=== PATIENT | female | born 1980 | race Caucasian/White ===

== ENCOUNTER 2016-09-17 20:28 | Emergency (ER) | payer SELFPAY ==
[~2016-09-17] VITALS: Ht 154.9 cm; Wt 74.5 kg
[~2016-09-17 20:28] MED LIST: ALPR1TAB PO; ALPR1TAB2 PO; ALPR1TAB7 PO; AMIT25TA9 PO; ASCO500T20 PO; ASPI-892 PO; ATOR20TA66 PO; BUTA1TAB46 PO; CIPR500T4 PO; ESTR0.5T PO; ESTR2TAB PO; ESTR2TAB4 PO; FLUC150T PO; GUAI120L27 PO; HYDR-3816 PO; HYDR-690 PO; HYDR118S10 PO; HYDR1TAB PO; HYOS0.1283 SL; IBP200T PO; KETO10TA PO; LORA10CA PO; LORA10TA7 PO; METO5TAB2 PO; METR500T PO; MTR250T PO; MULT-974 PO; OMEP20CA12 PO; ONDA4TAB11 PO; ONDA4TAB8 SL; ONDA8TAB12 PO; ORPH100T PO; PANT40TA2 PO; PARO40TA2 PO; PHEN37.555 PO; PRAV40TA PO; PRD20T PO; PRED10TA PO; PRM25T PO; PROZAC; PRX20T PO; RANI300T6 PO; SUCR1TAB36 PO; TRAZ-144 PO; TRM50T PO; VARE1TAB22 PO; VENL150C PO; WRF5T PO; ZIPR60CA6 PO; ZIPR60CA7 PO; ZPR20C PO; ZPR80C PO
--- OUTSIDE RECORDS SUMMARY | 2016-09-17 20:34 | XMS REPORT ---
Author Author BOGDAN FINK Organization [employer] Address Unknown Phone Unavailable Care Team Providers Care Broadcast Meteorologist Name Role Phone BOGDAN FINK CP Unavailable Allergies No Known Allergies Problems Problem Type Condition Code Onset Dates Condition Status Problem Family history of diabetes mellitus Z83.3 Active Problem Obesity (BMI 35.0-39.9 without comorbidity) E66.01 Active Problem Allergic rhinitis J30.9 Active Problem Elevated liver enzymes R74.8 Active Problem Substance abuse, daily use F19.10 Active Problem Generalized anxiety disorder F41.1 Active Problem Nausea R11.0 Active Problem Bipolar II disorder F31.81 Active Problem Depression with anxiety F41.8 Active Problem Bipolar 2 disorder F31.81 Active Problem History of hiatal hernia Z87.19 Active Problem Routine health maintenance Z00.00 Active Medications Medication Code System Code Instructions Start Date End Date Status Dosage Vicoprofen [facility] [address]-09 7.5-200 MG Orally 4 times a day MUST LAST 4 WEEKS 1 tablet as needed Results No Known Results Summary Purpose [employer] Submission
[2016-09-17] MEDS ORDERED: NS IV 1000 ML 1,000 ML IV ONE (22:19)
[2016-09-17] MEDS ORDERED: ONDANSETRON 4 MG/2 ML (SDV) Z0FRAN IVP ONE (22:30)
[2016-09-17 22:31] LABS: BASOPHILS % (AUTO) 0 % (0-10); EOSINOPHILS # (AUTO) 0.1 10^3/uL (0.0-0.3); EOSINOPHILS % (AUTO) 1 % (0-10); LYMPHOCYTES # (AUTO) 3.6 X 10^3 (1.0-4.0); LYMPHOCYTES % (AUTO) 37 % (12-44); MEAN CORPUSCULAR HEMOGLOBIN 30 PG (25-34); MEAN CORPUSCULAR HGB CONC 35 G/DL (32-36); MEAN CORPUSCULAR VOLUME 85 FL (80-99); MEAN PLATELET VOLUME 10.7 FL (7.4-10.4); MONOCYTES # (AUTO) 0.5 X 10^3 (0.0-1.0); MONOCYTES % (AUTO) 5 % (0-12); NEUTROPHILS # (AUTO) 5.4 X 10^3 (1.8-7.8); NEUTROPHILS % (AUTO) 56 % (42-75); PLATELET COUNT 335 10^3/uL (130-400); RED BLOOD COUNT 4.53 10^6/uL (4.35-5.85); RED CELL DISTRIBUTION WIDTH 12.4 % (10.0-14.5); WHITE BLOOD COUNT 9.6 10^3/uL (4.3-11.0)
[2016-09-17 22:54] LABS: ALANINE AMINOTRANSFERASE 39 U/L (0-55); ALBUMIN 4.4 G/DL (3.2-4.5); ANION GAP 14 MMOL/L (5-14); ASPARTATE AMINO TRANSFERASE 22 U/L (5-34); BILIRUBIN,TOTAL 0.3 MG/DL (0.1-1.0); BLOOD UREA NITROGEN 6 MG/DL (7-18); BUN/CREATININE RATIO 7; CALCIUM 9.4 MG/DL (8.5-10.1); CARBON DIOXIDE 18 MMOL/L (21-32); CHLORIDE 108 MMOL/L (98-107); CREATININE SERUM 0.82 MG/DL (0.60-1.30); ERYTHROCYTE SEDIMENTATION RATE 22 MM/HR (0-20); GFR ESTIMATED > 60; GLUCOSE 118 MG/DL (70-105); POTASSIUM 3.5 MMOL/L (3.6-5.0); SODIUM 140 MMOL/L (135-145); TOTAL PROTEIN 6.8 G/DL (6.4-8.2)
[2016-09-17] MEDS ORDERED: diphenhydrAMINE 50 MG/ML INJ (BENADRYL) IV STA (22:55)
[2016-09-17] MEDS ORDERED: KETOROLAC 30 MG/ML VIAL IVP STA (22:55)
--- NOTE | 2016-09-17 23:01 | ED Headache ---
General Chief Complaint: Head/Cervical Problems Stated Complaint: N,V,D,FEVER Nursing Triage Note: patient reports migraine with n/v x 6 days, patient reports not being able to keep anything down. denies being evaluated by PCP Nursing Sepsis Screen: No Definite Risk History of Present Illness Time seen by provider: 22:40 Initial Comments evaluation for nausea 6 days. Patient repeatedly states that she "has not kept anything down for 6 days." he ate dinner tonight, then vomited approximately 30 minutes later. She also reports having a frontal headache. She has a history of cluster headaches. She has history of hypoglycemia, she states her blood sugars have been running 60-80. She has been drinking pop to offset the hypoglycemia Timing/Duration: 1 week Severity/Quality: moderate Location: frontal Prior Headaches/Recent Trauma: chronic headaches Modifying Factors: worse with exposure to light, improves with immobilization, worse with movement, improves with rest Associated Symptoms: No confusion, No fatigue, No facial pain, No fever/chills , No loss of consciousness, nausea/vomitingNo nasal congestion, No nasal drainage, No numbness in legs/feet, No seizures, No sinus infection, No stiff neck, No vision changes, No weakness Allergies and Home Medications Allergies Uncoded Allergies: SEAFOOD (Allergy, Mild, 10/23/09) Home Medications Alprazolam 1 Mg Tablet 1 MG PO QID PRN PRN ANXIETY (Reported) Ascorbic Acid 500 Mg Tablet 500 MG PO DAILY (Reported) Atorvastatin Calcium 20 Mg Tablet 20 MG PO DAILY (Reported) Estradiol 2 Mg Tablet 1 MG PO DAILY (Reported) TAKES 1/2 (2MG) TABLET Hydrocodone Bit/Acetaminophen 1 Tab Tablet 1 TAB PO QID PRN PRN PAIN (Reported) Ketorolac Tromethamine 10 Mg Tablet #15 10 MG PO Q6H Prescribed by: JCARLOS FORRESTER on 11/11/15 0244 Loratadine 10 Mg Tablet 10 MG PO DAILY (Reported) Metoclopramide HCl 5 Mg Tablet #15 5 MG PO QID PRN PRN NAUSEA/VOMITING Prescribed by: KEITH CORNEJO on 02/23/15 5855 Multivitamin 1 Each Tablet 1 TAB PO DAILY (Reported) Omeprazole 20 Mg Capsule. 20 MG PO BID (Reported) Ondansetron HCl 8 Mg Tablet 8 MG PO QID PRN PRN NAUSEA (Reported) Pantoprazole Sodium 40 Mg Tablet.dr #90 40 MG PO DAILY Prescribed by: CLARENCE LOPEZ on 03/09/15 1007 Ranitidine HCl 300 Mg Tablet 300 MG PO HS (Reported) Sucralfate 1 Gm Tablet #120 1 GM PO QID Prescribed by: CLARENCE LOPEZ on 03/09/15 1007 Venlafaxine HCl 150 Mg Cap.er.24h 150 MG PO DAILY (Reported) Ziprasidone 80 Mg Cap 80 MG PO (Reported) Constitutional: no symptoms reported see HPI Eyes: See HPI Photophobia Ears, Nose, Mouth, Throat: no symptoms reported see HPI Respiratory: no symptoms reported see HPI Cardiovascular: no symptoms reported see HPI Gastrointestinal: see HPI nausea vomiting Genitourinary: see HPI : No (complete hysterectomy) Musculoskeletal: no symptoms reported see HPI Skin: no symptoms reported see HPI Psychiatric/Neurological: See HPI Past Bwkerhc-Ulbavt-Vkikkm Hx Patient Social History Alcohol Use: Denies Use Recreational Drug Use: Yes Smoking Status: Current Everyday Smoker Type Used: Electronic/Vapor Former Smoker/When Quit: Recent Foreign Travel: No Contact w/Someone Who Travel: No Recent Infectious Disease Expo: No Recent Hopitalizations: Yes Immunizations Up To Date Date of Influenza Vaccine: Jun 07, 2013 Surgeries HX Surgeries: Yes (LAPROSCOPY X 8 FOR ENDOMETRIOSIS; HYST/BSO, WISDOM TEETH) Surgeries: Abdominal, Appendectomy, Gallbladder, Hysterectomy, Oophorectomy Respiratory Hx Respiratory Disorders: No Cardiovascular Hx Cardiac Disorders: Yes Cardiac Disorders: High Cholesterol Neurological Hx Neurological Disorders: Yes Neurological Disorders: Headaches /Migraines Reproductive System Hx Reproductive Disorders: Yes Female Reproductive Disorders: Endometriosis 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 Genitourinary Hx Genitourinary Disorders: No Gastrointestinal Hx Gastrointestinal Disorders: No Gastrointestinal Disorders: Hiatal Hernia Musculoskeletal Hx Musculoskeletal Disorders: No Endocrine Hx Endocrine Disorders: No HEENT HX ENT Disorders: No Cancer Hx Cancer: No Psychosocial Hx Psychiatric Problems: Yes ("SEVERE ANXIETY" PER PT) Behavioral Health Disorders: Anxiety, Suicide Attempts, Bipolar, Depression Integumentary HX Skin/Integumentary Disorder: No Blood Transfusions Hx Blood Disorders: No Reviewed Nursing Assessment Reviewed/Agree w Nursing PMH: Yes Family Medical History Significant Family History: Cancer, Diabetes Physical Exam Vital Signs Vital Sign - Last 12Hours 09/17/16 21:26 Temp 97.5 Pulse 81 Resp 18 B/P 138/83 Pulse Ox 98 Capillary Refill : Less Than 3 Seconds General Appearance: WD/WN no apparent distress HEENT: PERRL/EOMI normal ENT inspection TMs normal pharynx normal other (oral mucosa pink and moist.) Neck: non-tender full range of motion supple normal inspection Cardiovascular: normal peripheral pulses regular rate, rhythm no murmur Respiratory: chest non-tender lungs clear normal breath sounds Gastrointestinal: normal bowel sounds non tender soft no organomegaly no pulsatile massNo distended, No guarding, No rebound, No tenderness, No hernia, No mass, No hepatomegaly, No spleenomegaly Extremities: normal range of motion non-tender normal inspection no pedal edema no calf tenderness normal capillary refill Psychiatric: alert oriented x 3 Crainal Nerves: normal hearing normal speech PERRL Coordination/Gait: normal finger to nose normal gait Motor/Sensory: no motor deficit no sensory deficit Skin: normal color warm/dry Lymphatic: no adenopathy Progress/Results/Core Measures Results/Orders Lab Results Laboratory Tests Test 09/17/16 22:20 09/17/16 23:40 Range/Units Alanine Aminotransferase (ALT/SGPT) 39 0-55 U/L Albumin 4.4 3.2-4.5 G/DL Alkaline Phosphatase 136 40-136 U/L Anion Gap 14 5-14 MMOL/L Aspartate Amino Transf (AST/SGOT) 22 5-34 U/L BUN/Creatinine Ratio 7 Basophils # (Auto) 0.0 0.0-0.1 10^3/uL Basophils (%) (Auto) 0 0-10 % Blood Urea Nitrogen 6 L 7-18 MG/DL Calcium Level 9.4 8.5-10.1 MG/DL Carbon Dioxide Level 18 L 21-32 MMOL/L Chloride Level 108 H 98-107 MMOL/L Creatinine 0.82 0.60-1.30 MG/DL Eosinophils # (Auto) 0.1 0.0-0.3 10^3/uL Eosinophils (%) (Auto) 1 0-10 % Erythrocyte Sedimentation Rate 22 H 0-20 MM/HR Estimat Glomerular Filtration Rate > 60 Glucose Level 118 H 70-105 MG/DL Hematocrit 39 35-52 % Hemoglobin 13.4 11.5-16.0 G/DL Lymphocytes # (Auto) 3.6 1.0-4.0 X 10^3 Lymphocytes (%) (Auto) 37 12-44 % Mean Corpuscular Hemoglobin 30 25-34 PG Mean Corpuscular Hemoglobin Concent 35 32-36 G/DL Mean Corpuscular Volume 85 80-99 FL Mean Platelet Volume 10.7 H 7.4-10.4 FL Monocytes # (Auto) 0.5 0.0-1.0 X 10^3 Monocytes (%) (Auto) 5 0-12 % Neutrophils # (Auto) 5.4 1.8-7.8 X 10^3 Neutrophils (%) (Auto) 56 42-75 % Platelet Count 335 130-400 10^3/uL Potassium Level 3.5 L 3.6-5.0 MMOL/L Red Blood Count 4.53 4.35-5.85 10^6/uL Red Cell Distribution Width 12.4 10.0-14.5 % Sodium Level 140 135-145 MMOL/L Total Bilirubin 0.3 0.1-1.0 MG/DL Total Protein 6.8 6.4-8.2 G/DL White Blood Count 9.6 4.3-11.0 10^3/uL Urine Bacteria NONE /HPF Urine Bilirubin NEGATIVE NEGATIVE Urine Casts NONE /LPF Urine Clarity CLEAR Urine Color YELLOW Urine Crystals NONE /LPF Urine Culture Indicated NO Urine Glucose (UA) NEGATIVE NEGATIVE Urine Ketones NEGATIVE NEGATIVE Urine Leukocyte Esterase NEGATIVE NEGATIVE Urine Mucus NEGATIVE /LPF Urine Nitrite NEGATIVE NEGATIVE Urine Protein NEGATIVE NEGATIVE Urine RBC NONE /HPF Urine RBC (Auto) NEGATIVE NEGATIVE Urine Specific [place] 1.005 L 1.016-1.022 Urine Squamous Epithelial Cells 0-2 /HPF Urine Urobilinogen NORMAL NORMAL MG/DL Urine WBC NONE /HPF Urine pH 6.5 5-9 My Orders Orders-KADEN CONLEY Cbc With Automated Diff (09/17/16 22:19) Comprehensive Metabolic Panel (09/17/16 22:19) Erythrocyte Sedimentation Rate (09/17/16 22:19) Ua Culture If Indicated (09/17/16 22:19) Ondansetron Injection (Zofran Injectio (09/17/16 22:30) Saline Lock/Iv-Start (09/17/16 22:19) Saline Lock/Iv-Start (09/17/16 22:19) Ns Iv 1000 Ml (Sodium Chloride 0.9%) (09/17/16 22:19) Ketorolac Injection (Toradol Injection) (09/17/16 22:55) Diphenhydramine Injection (Benadryl Inje (09/17/16 22:55) Medications Given in ED Current Medications Medications Dose Ordered Sig/Clem Route Start Time Stop Time Status Last Admin Dose Admin Ondansetron HCl 4 mg 4 mg ONCE ONCE IVP 09/17/16 22:30 09/17/16 22:31 DC 09/17/16 22:28 4 MG Sodium Chloride 1,000 ml @ 0 mls/hr Q0M ONCE IV 09/17/16 22:19 09/17/16 22:24 DC 09/17/16 22:28 0 MLS/HR Vital Signs/I&O Vital Sign - Last 12Hours 09/17/16 21:26 Temp 97.5 Pulse 81 Resp 18 B/P 138/83 Pulse Ox 98 Intake and Output 09/18/16 00:00 Intake Total 1000 ml Balance 1000 ml Blood Pressure Mean: 101 Progress Note : Time: 22:40 Progress Note evaluation for nausea and vomiting with headache. Normal saline 1 L and Zofran 4 mg IV. 2314 patient reports the nausea is improved but she continues to have a headache will give Toradol 30 mg IV and Benadryl 50 mg IV. 2344 patient reports headache has improved significantly she continues to have no nausea or vomiting. She is taking ice chips by mouth. UA normal. Departure Impression Impression: Primary Impression: Nausea and vomiting Qualified Code: G43.A1 - Cyclical vomiting, intractable Additional Impression: Headache Qualified Code: G44.021 - Chronic cluster headache, intractable Disposition: 01 HOME, SELF-CARE Condition: Improved Departure-Patient Inst. Decision time for Depature: 23:40 Referrals: [facility] (PCP/Family) Primary Care Physician Patient Instructions: Cluster Headache (DC), Nausea and Vomiting, Adult (DC) Add. Discharge Instructions: All discharge instructions reviewed with patient and/or family. Voiced understanding. Clear liquid diet for 4 hours, then progress to bland. Return to Emergency Dept if symptoms return or worsen. KADEN CONLEY Sep 17, 2016 23:01
[2016-09-17 23:52] LABS: BILIRUBIN,URINE NEGATIVE (NEGATIVE); KETONES,URINE NEGATIVE (NEGATIVE); LEUKOCYTE ESTERASE ,URINE NEGATIVE (NEGATIVE); NITRITE,URINE NEGATIVE (NEGATIVE); PH,URINE 6.5 (5-9); PROTEIN,URINE NEGATIVE (NEGATIVE); UROBILINOGEN,URINE NORMAL (NORMAL)
[2016-09-18 00:02] LABS: SQUAMOUS EPITHELIAL CELL,UR 0-2 /HPF
[2016-09-18 00:12] VITALS: BP 126/68
== END 2016-09-18 00:12 | disposition home or self-care (01) ==
LOC: EDUNIT# 20:28 → ER 20:30
DX: R11.2 Nausea with vomiting, unspecified (principal); R51 Headache; F17.210 Nicotine dependence, cigarettes, uncomplicated; Z79.899 Other long term (current) drug therapy
CPT/HCPCS: 36415; 80053; 81000; 85025; 85652; 96361; 96374; 96375

== ENCOUNTER 2019-01-18 21:18 | Emergency (ER) | payer BC ==
[~2019-01-18] VITALS: Ht 154.9 cm; Wt 86.2 kg
--- NOTE | 2019-01-18 21:20 | NUR ---
Inability to obtain initiatl EKG @ this time d/t accessive artifact r/t pt restlessness and inability to remain still. Provider notified and advised to retry EKG after pain medicition adm.
--- OUTSIDE RECORDS SUMMARY | 2019-01-18 21:23 | XMS REPORT ---
Author Author WHITNEY CLEMENTE [facility] Address [address] [place] [address] Care Team Providers Care Director [employer] Name Role Phone WHITNEY CLEMENTE Unavailable PROBLEMS Type Condition ICD9-CM Code FZY15-UL Code Onset Dates Condition Status SNOMED Code Problem Chronic pain syndrome G89.4 Active 253840317 Problem Obesity (BMI 30.0-34.9) E66.9 Active 808462686078527 Problem Chronic cluster headache, not intractable G44.029 Active 804434029 Problem Obesity (BMI 35.0-39.9 without comorbidity) E66.01 Active 685990324 Problem Insomnia due to other mental disorder F51.05 Active 24340610 Problem GERD (gastroesophageal reflux disease) K21.9 Active 977549477 Problem Primary insomnia F51.01 Active 6894091 Problem Mental disorder, not otherwise specified F99 Active 40520845 Problem Seasonal allergic rhinitis due to pollen J30.1 Active 79712494 Problem Elevated liver enzymes R74.8 Active 523057480 Problem Substance abuse, daily use F19.10 Active 188173047 Problem Allergic rhinitis J30.9 Active 12201499 Problem Tobacco abuse Z72.0 Active 314762859 Problem Bipolar 2 disorder F31.81 Active 79896927 Problem Tobacco abuse counseling Z71.6 Active 803270258 Problem Depression with anxiety F41.8 Active 274911580 Problem Post menopausal syndrome N95.1 Active 510920885 ALLERGIES No Information ENCOUNTERS Encounter Location Date Diagnosis [facility] [address] [facility] [id number] [address] Jul, [facility] [id number] [address] Jun, [facility] [address] [facility] [id number] [address] May, [place] [id number] [place] [address] 05 May, 2018 Obesity (BMI 35.0-39.9 without comorbidity) E66.01 [facility] [id number] [place] [phone] 05 May, 2018 Bipolar 2 disorder F31.81 [place] [id number] [place] [address] May, Obesity (BMI 30.0-34.9) E66.9 and Obesity (BMI 35.0-39.9 without comorbidity) E66.01 [place] [id number] [place] [address] Apr, [place] [id number] [place] [address] Apr, Bipolar 2 disorder F31.81 [place] [id number] [place] [address] Apr, [place] [id number] [place] [address] Apr, Bipolar 2 disorder F31.81 [place] [id number] [place] [address] Mar, Bipolar 2 disorder F31.81 ; Insomnia due to other mental disorder F51.05 ; Mental disorder, not otherwise specified F99 and Post menopausal syndrome N95.1 [place] [id number] [place] [address] Feb, Bipolar 2 disorder F31.81 ; Tobacco abuse counseling Z71.6 and Seasonal allergic rhinitis due to pollen J30.1 [place] [address] [place] [address] Feb, Bipolar 2 disorder F31.81 ; Depression with anxiety F41.8 ; Chronic pain syndrome G89.4 ; long term (current) use of 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 Z79.891 ; Abnormal serum enzyme level, unspecified R74.9 ; Elevated liver enzymes R74.8 and Tobacco abuse Z72.[address] [address] Feb, Depression with anxiety F41.8 ; Chronic pain syndrome G89.4 and [facility] (current) use of 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 Z79.[address] [address] Oct, Bipolar 2 disorder F31.81 ; Depression with anxiety F41.8 ; Elevated liver enzymes R74.8 ; Tobacco abuse Z72.0 ; Chronic pain syndrome G89.4 ; GERD (gastroesophageal reflux disease) K21.9 ; Primary insomnia F51.01 ; Post menopausal syndrome N95.1 and Nausea R11.0 [facility] [address] [address] Aug, [facility] [address] [address] Jun, Chronic cluster headache, not intractable G44.[address] [address] Apr, Primary insomnia F51.01 and Violation of controlled substance agreement Z91.[address] [address] Mar, [address] [address] Feb, [address] [address] Feb, Depression with anxiety F41.8 ; Bipolar 2 disorder F31.81 ; Allergic rhinitis J30.9 ; Tobacco abuse Z72.0 ; Post menopausal syndrome N95.1 ; Chronic pain syndrome G89.4 ; Obesity (BMI 30.0-34.9) E66.9 ; GERD (gastroesophageal reflux disease) K21.9 ; Primary insomnia F51.01 ; Long-term use of high-risk medication Z79.899 and Controlled substance agreement signed Z79.899 [place] [address] [place] [address] Jan, [place] [address] [place] [id number] [place] [address] Jan, Chronic pain syndrome G89.4 and Depression with anxiety F41.8 [place] [id number] [place] [address] Dec, Chronic pain syndrome G89.4 and Depression with anxiety F41.8 [place] [address] [id number] [place] [address] November, Chronic pain syndrome G89.4 and Depression with anxiety F41.8 [place] [id number] [place] [address] November, Abnormal serum enzyme level, unspecified R74.9 [place] [id number] [place] [address] November, Family history of diabetes mellitus Z83.3 [place] [id number] [place] [address] November, Depression with anxiety F41.8 ; Bipolar 2 disorder F31.81 ; Allergic rhinitis J30.9 ; Nausea R11.0 ; Obesity (BMI 30.0-34.9) E66.9 ; Substance abuse, daily use F19.10 ; Elevated liver enzymes R74.8 ; History of hiatal hernia Z87.19 ; Post menopausal syndrome N95.1 ; Chronic pain syndrome G89.4 and Routine health maintenance Z00.00 [place] [address] [place] [address] Oct, Chronic pain syndrome G89.4 and Depression with anxiety F41.8 [place] [address] [id number] [place] [address] Oct, Family history of diabetes mellitus Z83.3 [place] [address] [id number] [place] [address] Sep, [place] [address] [place] [address] Sep, Chronic pain syndrome G89.4 and Depression with anxiety F41.8 [place] [address] [address] Sep, Depression with anxiety F41.8 [place] [address] [place] [id number] [place] [address] Aug, Chronic pain syndrome G89.4 [facility] [address] [id number] [place] [address] Aug, Chronic cluster headache, not intractable G44.029 [place] [address] [id number] [place] [address] Aug, Depression with anxiety F41.8 ; Bipolar 2 disorder F31.81 ; Obesity (BMI 35.0-39.9 without comorbidity) E66.01 ; Allergic rhinitis J30.9 ; Substance abuse, daily use F19.10 ; Nausea R11.0 ; Tobacco abuse Z72.0 ; Chronic pain syndrome G89.4 ; Hiatal hernia K44.9 and Post menopausal syndrome N95.1 [place] [address] [place] [address] Aug, [place] [address] [place] [address] Jul, Chronic pain syndrome G89.4 [place] [address] [place] [id number] [place] [address] Jul, [place] [address] [id number] [place] [address] Jun, Depression with anxiety F41.8 ; Bipolar 2 disorder F31.81 ; Obesity (BMI 35.0-39.9 without comorbidity) E66.01 ; Post menopausal syndrome N95.1 and Chronic pain syndrome G89.4 [facility] [id number] [place] [address] 17 Jun, 2016 Bronchitis J40 [facility] [id number] [place] [address] Jun, [facility] [id number] [place] [address] May, [facility] [address] [address] May, Depression with anxiety F41.8 ; Bipolar 2 disorder F31.81 ; Obesity (BMI 35.0-39.9 without comorbidity) E66.01 ; Tobacco abuse Z72.0 and Tobacco abuse counseling Z71.6 [place] [id number] [place] [address] May, [facility] [id number] [place] [address] Apr, [facility] [id number] [place] [address] Apr, Abrasion, right great toe, initial encounter S90.411A and Local infection of the skin and subcutaneous tissue, unspecified L08.9 [place] [address] [id number] [place] [address] Apr, [facility] [address] [place] [address] Mar, Depression with anxiety F41.8 ; Bipolar 2 disorder F31.81 ; Obesity (BMI 35.0-39.9 without comorbidity) E66.01 ; Substance abuse, daily use F19.10 ; Elevated liver enzymes R74.8 ; GERD (gastroesophageal reflux disease) K21.9 and Allergic rhinitis J30.9 [facility] [address] [place] [address] Mar, [facility] [id number] [place] [address] Mar, [facility] [id number] [place] [address] 05 Feb, 2016 Depression with anxiety F41.8 ; Bipolar 2 disorder F31.81 ; Obesity (BMI 35.0-39.9 without comorbidity) E66.01 ; Substance abuse, daily use F19.10 ; Nausea R11.0 and History of hiatal hernia Z87.19 [place] [id number] [place] [address] Feb, [place] [address] [id number] [place] [address] 02 Feb, 2016 Bipolar II disorder F31.81 and Generalized anxiety disorder F41.1 [place] [id number] [place] [address] Jan, [place] [address] [id number] [place] [address] Dec, [place] [id number] [place] [address] 02 Dec, 2015 Bipolar II disorder F31.81 ; Nausea R11.0 and History of hiatal hernia Z87.19 [place] [id number] [place] [address] 27 Nov, 2015 Bipolar II disorder F31.81 and Generalized anxiety disorder F41.1 [place] [id number] [place] [address] 19 Nov, 2015 Family history of diabetes mellitus Z83.3 [place] [address] [place] [id number] [place] [address] 13 Nov, 2015 [place] [id number] [place] [address] November, Abnormal serum enzyme level, unspecified R74.[address] [place] [address] 10 Nov, 2015 Routine health maintenance Z00.00 ; Depression with anxiety F41.8 ; Obesity (BMI 35.0-39.9 without comorbidity) E66.01 ; Family history of diabetes mellitus Z83.3 ; Bipolar 2 disorder F31.81 ; Allergic rhinitis J30.9 ; Substance abuse, daily use F19.10 ; GERD (gastroesophageal reflux disease) K21.9 ; History of cluster headache Z86.69 and History of hysterectomy Z90.710 [facility] [id number] [address] November, [facility] [address] [address] November, [facility] [id number] [address] Oct, Routine health maintenance Z00.00 ; Depression with anxiety F41.8 ; Bipolar 2 disorder F31.81 ; Obesity (BMI 35.0-39.9 without comorbidity) E66.01 ; Allergic rhinitis J30.9 ; Family history of diabetes mellitus Z83.3 ; Substance abuse, daily use F19.10 ; GERD (gastroesophageal reflux disease) K21.9 ; History of cluster headache Z86.69 and History of hysterectomy Z90.710 [facility] [address] [facility] [id number] [id number] Sep, Dental examination Z01.20 IMMUNIZATIONS No Known Immunizations SOCIAL HISTORY Never Assessed REASON FOR VISIT 1 mo DM ed f/u PLAN OF CARE VITAL SIGNS MEDICATIONS Unknown Medications RESULTS No Results PROCEDURES No Known procedures INSTRUCTIONS MEDICATIONS ADMINISTERED No Known Medications MEDICAL (GENERAL) HISTORY Type Description Date Medical History bronchitis Medical History blood thinners--used for cluster headaches Medical History cluster headaches Medical History bipolar disorder Medical History suicidal attempts x2--- OD on her Geodon Medical History History of hiatal hernia Medical History substance abuse Medical History insomnia Medical History chronic pain syndrome Medical History tobacco abuse Medical History allergic rhinitis Medical History elevated liver enzymes Surgical History endrometriosis surgerys x 8 Surgical History gallbladder Surgical History hysterectomy Surgical History left shoulder arthroscopy Surgical History wisdom tooth extractions Hospitalization History OD for suicide attempt was at then was sent to [facility] Hospitalization History C-diff Hospitalization History for bronchitis or pneumonia Hospitalization History for surgeries as well. Hospitalization History psych inpatient [facility] 2014
--- OUTSIDE RECORDS SUMMARY | 2019-01-18 21:24 | XMS REPORT ---
Author Author WILLIAM ALEXANDER [facility] Address [address] [place] [address] Care Team Providers Care Manager Competitive Intelligence Name Role Phone WILLIAM ALEXANDER Unavailable PROBLEMS Type Condition ICD9-CM Code QZU12-GT Code Onset Dates Condition Status SNOMED Code Problem Chronic pain syndrome G89.4 Active 844935009 Problem Obesity (BMI 30.0-34.9) E66.9 Active 605054771143350 Problem Chronic cluster headache, not intractable G44.029 Active 245606009 Problem Obesity (BMI 35.0-39.9 without comorbidity) E66.01 Active 707391594 Problem Insomnia due to other mental disorder F51.05 Active 26158654 Problem GERD (gastroesophageal reflux disease) K21.9 Active 346003057 Problem Primary insomnia F51.01 Active 8254265 Problem Mental disorder, not otherwise specified F99 Active 06680392 Problem Seasonal allergic rhinitis due to pollen J30.1 Active 44631472 Problem Elevated liver enzymes R74.8 Active 953863288 Problem Substance abuse, daily use F19.10 Active 032527149 Problem Allergic rhinitis J30.9 Active 38973560 Problem Tobacco abuse Z72.0 Active 071145383 Problem Bipolar 2 disorder F31.81 Active 48336105 Problem Tobacco abuse counseling Z71.6 Active 607357398 Problem Depression with anxiety F41.8 Active 074428222 Problem Post menopausal syndrome N95.1 Active 330085852 ALLERGIES No Information ENCOUNTERS Encounter Location Date Diagnosis [facility] [id number] [address] May, [facility] [id number] [address] May, Obesity (BMI 30.0-34.9) E66.9 and Obesity (BMI 35.0-39.9 without comorbidity) E66.01 [address] [address] Apr, [id number] [place] [address] Apr, Bipolar 2 disorder F31.81 [id number] [place] [address] Apr, [address] [id number] [place] [address] Apr, Bipolar 2 disorder F31.81 [address] [place] [place] [address] Mar, Bipolar 2 disorder F31.81 ; Insomnia due to other mental disorder F51.05 ; Mental disorder, not otherwise specified F99 and Post menopausal syndrome N95.1 [address] [id number] [place] [address] Feb, Bipolar 2 disorder F31.81 ; Tobacco abuse counseling Z71.6 and Seasonal allergic rhinitis due to pollen J30.1 [address] [place] [address] [place] [address] Feb, Bipolar 2 disorder F31.81 ; Depression with anxiety F41.8 ; Chronic pain syndrome G89.4 ; 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 ; Abnormal serum enzyme level, unspecified R74.9 ; Elevated liver enzymes R74.8 and Tobacco abuse Z72.0 [address] [place] [place] [address] Feb, Depression with anxiety F41.8 ; Chronic pain syndrome G89.4 and retirement (current) use of 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 Z79.891 [address] [place] [place] [address] Oct, Bipolar 2 disorder F31.81 ; Depression with anxiety F41.8 ; Elevated liver enzymes R74.8 ; Tobacco abuse Z72.0 ; Chronic pain syndrome G89.4 ; GERD (gastroesophageal reflux disease) K21.9 ; Primary insomnia F51.01 ; Post menopausal syndrome N95.1 and Nausea R11.0 [facility] [id number] [place] [address] Aug, [facility] [id number] [place] [address] Jun, Chronic cluster headache, not intractable G44.029 [address] [address] Apr, Primary insomnia F51.01 and Violation of controlled substance agreement Z91.[address] [address] Mar, [address] [address] Feb, [address] [address] Feb, Depression with anxiety F41.8 ; Bipolar 2 disorder F31.81 ; Allergic rhinitis J30.9 ; Tobacco abuse Z72.0 ; Post menopausal syndrome N95.1 ; Chronic pain syndrome G89.4 ; Obesity (BMI 30.0-34.9) E66.9 ; GERD (gastroesophageal reflux disease) K21.9 ; Primary insomnia F51.01 ; Long-term use of high-risk medication Z79.899 and Controlled substance agreement signed Z79.899 [address] [id number] [place] [address] Jan, [address] [id number] [place] [address] Jan, Chronic pain syndrome G89.4 and Depression with anxiety F41.8 [address] [id number] [place] [address] Dec, Chronic pain syndrome G89.4 and Depression with anxiety F41.8 [address] [id number] [place] [address] November, Chronic pain syndrome G89.4 and Depression with anxiety F41.8 [id number] [place] [address] November, Abnormal serum enzyme level, unspecified R74.9 [address] [id number] [place] [address] November, Family history of diabetes mellitus Z83.3 [address] [id number] [place] [address] November, Depression with anxiety F41.8 ; Bipolar 2 disorder F31.81 ; Allergic rhinitis J30.9 ; Nausea R11.0 ; Obesity (BMI 30.0-34.9) E66.9 ; Substance abuse, daily use F19.10 ; Elevated liver enzymes R74.8 ; History of hiatal hernia Z87.19 ; Post menopausal syndrome N95.1 ; Chronic pain syndrome G89.4 and Routine health maintenance Z00.00 [address] [id number] [place] [address] Oct, Chronic pain syndrome G89.4 and Depression with anxiety F41.8 [address] [id number] [place] [address] Oct, Family history of diabetes mellitus Z83.3 [address] [id number] [place] [address] Sep, [address] [id number] [place] [address] Sep, Chronic pain syndrome G89.4 and Depression with anxiety F41.8 [address] [id number] [place] [address] Sep, Depression with anxiety F41.8 [address] [id number] [place] [address] Aug, Chronic pain syndrome G89.4 [facility] [id number] [place] [address] 09 Aug, 2016 Chronic cluster headache, not intractable G44.029 [address] [place] [address] Aug, Depression with anxiety F41.8 ; Bipolar 2 disorder F31.81 ; Obesity (BMI 35.0-39.9 without comorbidity) E66.01 ; Allergic rhinitis J30.9 ; Substance abuse, daily use F19.10 ; Nausea R11.0 ; Tobacco abuse Z72.0 ; Chronic pain syndrome G89.4 ; Hiatal hernia K44.9 and Post menopausal syndrome N95.1 [address] [id number] [place] [address] Aug, [address] [place] [id number] [place] [address] Jul, Chronic pain syndrome G89.4 [address] [id number] [place] [address] Jul, [address] [id number] [place] [address] Jun, Depression with anxiety F41.8 ; Bipolar 2 disorder F31.81 ; Obesity (BMI 35.0-39.9 without comorbidity) E66.01 ; Post menopausal syndrome N95.1 and Chronic pain syndrome G89.4 [facility] [id number] [place] [address] Jun, Bronchitis J40 [facility] [id number] [place] [address] Jun, [address] [id number] [place] [address] May, [address] [id number] [place] [address] May, Depression with anxiety F41.8 ; Bipolar 2 disorder F31.81 ; Obesity (BMI 35.0-39.9 without comorbidity) E66.01 ; Tobacco abuse Z72.0 and Tobacco abuse counseling Z71.6 [facility] [id number] [place] [address] May, [facility] [id number] [place] [address] Apr, [facility] [id number] [place] [address] Apr, Abrasion, right great toe, initial encounter S90.411A and Local infection of the skin and subcutaneous tissue, unspecified L08.9 [facility] [id number] [place] [address] Apr, [address] [id number] [place] [address] Mar, Depression with anxiety F41.8 ; Bipolar 2 disorder F31.81 ; Obesity (BMI 35.0-39.9 without comorbidity) E66.01 ; Substance abuse, daily use F19.10 ; Elevated liver enzymes R74.8 ; GERD (gastroesophageal reflux disease) K21.9 and Allergic rhinitis J30.9 [address] [id number] [place] [address] Mar, [id number] [place] [address] Mar, [address] [id number] [place] [address] Feb, Depression with anxiety F41.8 ; Bipolar 2 disorder F31.81 ; Obesity (BMI 35.0-39.9 without comorbidity) E66.01 ; Substance abuse, daily use F19.10 ; Nausea R11.0 and History of hiatal hernia Z87.19 [address] [id number] [place] [address] Feb, [address] [id number] [place] [address] Feb, Bipolar II disorder F31.81 and Generalized anxiety disorder F41.1 [id number] [place] [address] Jan, [address] [id number] [place] [address] Dec, [address] [id number] [place] [address] Dec, Bipolar II disorder F31.81 ; Nausea R11.0 and History of hiatal hernia Z87.19 [address] [id number] [place] [address] November, Bipolar II disorder F31.81 and Generalized anxiety disorder F41.1 [address] [id number] [place] [address] November, Family history of diabetes mellitus Z83.[address] [address] November, [address] [id number] [place] [address] November, Abnormal serum enzyme level, unspecified R74.9 [id number] [place] [address] November, Routine health maintenance Z00.00 ; Depression with anxiety F41.8 ; Obesity (BMI 35.0-39.9 without comorbidity) E66.01 ; Family history of diabetes mellitus Z83.3 ; Bipolar 2 disorder F31.81 ; Allergic rhinitis J30.9 ; Substance abuse, daily use F19.10 ; GERD (gastroesophageal reflux disease) K21.9 ; History of cluster headache Z86.69 and History of hysterectomy Z90.710 [address] [id number] [place] [address] November, [address] [id number] [place] [address] November, [address] [address] Oct, Routine health maintenance Z00.00 ; Depression with anxiety F41.8 ; Bipolar 2 disorder F31.81 ; Obesity (BMI 35.0-39.9 without comorbidity) E66.01 ; Allergic rhinitis J30.9 ; Family history of diabetes mellitus Z83.3 ; Substance abuse, daily use F19.10 ; GERD (gastroesophageal reflux disease) K21.9 ; History of cluster headache Z86.69 and History of hysterectomy Z90.710 [facility] [address] [facility] [id number] [place] [id number] Sep, Dental examination Z01.20 IMMUNIZATIONS No Known Immunizations SOCIAL HISTORY Never Assessed REASON FOR VISIT DM ed PLAN OF CARE VITAL SIGNS MEDICATIONS Unknown [...] attempt was at then was sent to [facility] Hospitalization History C-diff Hospitalization History for bronchitis or pneumonia Hospitalization History for surgeries as well. Hospitalization History psych inpatient [facility] 2014
--- OUTSIDE RECORDS SUMMARY | 2019-01-18 21:24 | XMS REPORT ---
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 Name Role Phone WHITNEY CLEMENTE Unavailable PROBLEMS Type Condition ICD9-CM Code LSM37-KV Code Onset Dates Condition Status SNOMED Code Problem Chronic pain syndrome G89.4 Active 783369900 Problem Obesity (BMI 30.0-34.9) E66.9 Active 355228354212314 Problem Chronic cluster headache, not intractable G44.029 Active 478250958 Problem Obesity (BMI 35.0-39.9 without comorbidity) E66.01 Active 626844494 Problem Insomnia due to other mental disorder F51.05 Active 67288045 Problem GERD (gastroesophageal reflux disease) K21.9 Active 978087283 Problem Primary insomnia F51.01 Active 4422104 Problem Mental disorder, not otherwise specified F99 Active 66886347 Problem Seasonal allergic rhinitis due to pollen J30.1 Active 59542546 Problem Elevated liver enzymes R74.8 Active 811160452 Problem Substance abuse, daily use F19.10 Active 476073340 Problem Allergic rhinitis J30.9 Active 69356536 Problem Tobacco abuse Z72.0 Active 512479466 Problem Bipolar 2 disorder F31.81 Active 02746107 Problem Tobacco abuse counseling Z71.6 Active 586722628 Problem Depression with anxiety F41.8 Active 312751684 Problem Post menopausal syndrome N95.1 Active [id number] ALLERGIES No Information ENCOUNTERS Encounter Location Date Diagnosis [facility] [address] [facility] [id number] [address] Jul, [facility] [id number] [address] May, [facility] [address] [facility] [id number], [place] [address] May, Obesity (BMI 35.0-39.9 without comorbidity) E66.01 [place] [address] [place] [address] 05 May, 2018 Bipolar 2 disorder F31.81 [place] [id number] [place] [address] May, Obesity (BMI 30.0-34.9) E66.9 and Obesity (BMI 35.0-39.9 without comorbidity) E66.01 [place] [address] [id number] [place] [address] Apr, [place] [address] [id number] [place] [address] Apr, Bipolar 2 disorder F31.81 [place] [address] [id number] [place] [address] Apr, [place] [address] [place] [id number] [place] [address] Apr, Bipolar 2 disorder F31.81 [place] [address] [place] [id number] [place] [address] Mar, Bipolar 2 disorder F31.81 ; Insomnia due to other mental disorder F51.05 ; Mental disorder, not otherwise specified F99 and Post menopausal syndrome N95.1 [place] [address] [place] [id number] [place] [address] Feb, Bipolar 2 disorder F31.81 ; Tobacco abuse counseling Z71.6 and Seasonal allergic rhinitis due to pollen J30.1 [place] [address] [place] [address] Feb, Bipolar 2 disorder F31.81 ; Depression with anxiety F41.8 ; Chronic pain syndrome G89.4 ; 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 ; Abnormal serum enzyme level, unspecified R74.9 ; Elevated liver enzymes R74.8 and Tobacco abuse Z72.0 [place] [address] [address] Feb, Depression with anxiety F41.8 ; Chronic pain syndrome G89.4 and penitentiary (current) use of 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 Z79.[address] [address] Oct, Bipolar 2 disorder F31.81 ; Depression with anxiety F41.8 ; Elevated liver enzymes R74.8 ; Tobacco abuse Z72.0 ; Chronic pain syndrome G89.4 ; GERD (gastroesophageal reflux disease) K21.9 ; Primary insomnia F51.01 ; Post menopausal syndrome N95.1 and Nausea R11.0 [facility] [address] [address] Aug, [facility] [address] [address] Jun, Chronic cluster headache, not intractable G44.[address] [address] Apr, Primary insomnia F51.01 and Violation of controlled substance agreement Z91.[address] [address] Mar, [address] [address] Feb, [address] [address] Feb, Depression with anxiety F41.8 ; Bipolar 2 disorder F31.81 ; Allergic rhinitis J30.9 ; Tobacco abuse Z72.0 ; Post menopausal syndrome N95.1 ; Chronic pain syndrome G89.4 ; Obesity (BMI 30.0-34.9) E66.9 ; GERD (gastroesophageal reflux disease) K21.9 ; Primary insomnia F51.01 ; Long-term use of high-risk medication Z79.899 and Controlled substance agreement signed Z79.[address] [address] Jan, [place] [address] [place] [address] Jan, Chronic pain syndrome G89.4 and Depression with anxiety F41.8 [place] [address] [id number] [place] [address] Dec, Chronic pain syndrome G89.4 and Depression with anxiety F41.8 [place] [address] [place] [id number] [place] [address] November, Chronic pain syndrome G89.4 and Depression with anxiety F41.8 [place] [id number] [place] [address] November, Abnormal serum enzyme level, unspecified R74.9 [place] [address] [place] [id number] [place] [address] November, Family history of diabetes mellitus Z83.3 [place] [address] [id number] [place] [address] November, Depression with anxiety F41.8 ; Bipolar 2 disorder F31.81 ; Allergic rhinitis J30.9 ; Nausea R11.0 ; Obesity (BMI 30.0-34.9) E66.9 ; Substance abuse, daily use F19.10 ; Elevated liver enzymes R74.8 ; History of hiatal hernia Z87.19 ; Post menopausal syndrome N95.1 ; Chronic pain syndrome G89.4 and Routine health maintenance Z00.00 [place] [address] [place] [address] Oct, Chronic pain syndrome G89.4 and Depression with anxiety F41.8 [place] [address] [place] [id number] [place] [address] Oct, Family history of diabetes mellitus Z83.3 [place] [address] [place] [id number] [place] [address] Sep, [place] [address] [place] [id number] [place] [address] Sep, Chronic pain syndrome G89.4 and Depression with anxiety F41.8 [place] [address] [place] [id number] [place] [address] Sep, Depression with anxiety F41.8 [place] [address] [id number] [place] [address] Aug, Chronic pain syndrome G89.4 [facility] [id number] [place] [address] Aug, Chronic cluster headache, not intractable G44.029 [place] [address] [address] Aug, Depression with anxiety F41.8 ; Bipolar 2 disorder F31.81 ; Obesity (BMI 35.0-39.9 without comorbidity) E66.01 ; Allergic rhinitis J30.9 ; Substance abuse, daily use F19.10 ; Nausea R11.0 ; Tobacco abuse Z72.0 ; Chronic pain syndrome G89.4 ; Hiatal hernia K44.9 and Post menopausal syndrome N95.1 [place] [address] [place] [id number] [place] [address] Aug, [place] [address] [place] [id number] [place] [address] Jul, Chronic pain syndrome G89.4 [place] [address] [place] [id number] [place] [address] Jul, [place] [address] [place] [id number] [place] [address] Jun, Depression with anxiety F41.8 ; Bipolar 2 disorder F31.81 ; Obesity (BMI 35.0-39.9 without comorbidity) E66.01 ; Post menopausal syndrome N95.1 and Chronic pain syndrome G89.4 [facility] [address] [place] [address] Jun, Bronchitis J40 [place] [id number] [address] Jun, [facility] [address] [place] [address] May, [facility] [address] [place] [id number] [place] [address] May, Depression with anxiety F41.8 ; Bipolar 2 disorder F31.81 ; Obesity (BMI 35.0-39.9 without comorbidity) E66.01 ; Tobacco abuse Z72.0 and Tobacco abuse counseling Z71.6 [place] [address] [place] [id number] [place] [address] May, [place] [address] [place] [id number] [place] [address] Apr, [facility] [id number] [place] [address] Apr, Abrasion, right great toe, initial encounter S90.411A and Local infection of the skin and subcutaneous tissue, unspecified L08.9 [place] [address], [place] [address] Apr, [place] [address] [place] [id number] [place] [address] Mar, Depression with anxiety F41.8 ; Bipolar 2 disorder F31.81 ; Obesity (BMI 35.0-39.9 without comorbidity) E66.01 ; Substance abuse, daily use F19.10 ; Elevated liver enzymes R74.8 ; GERD (gastroesophageal reflux disease) K21.9 and Allergic rhinitis J30.9 [place] [address], [place] [address] Mar, [place] [address] [place] [id number] [place] [address] Mar, [facility] [address], [place] [address] Feb, Depression with anxiety F41.8 ; Bipolar 2 disorder F31.81 ; Obesity (BMI 35.0-39.9 without comorbidity) E66.01 ; Substance abuse, daily use F19.10 ; Nausea R11.0 and History of hiatal hernia Z87.19 [place] [address] [place] [address] Feb, [place] [address] [place] [id number] [place] [address] Feb, Bipolar II disorder F31.81 and Generalized anxiety disorder F41.1 [place] [address] [place] [id number] [place] [address] Jan, [place] [address] [place] [id number] [place] [address] Dec, [place] [address] [place] [id number] [place] [address] Dec, Bipolar II disorder F31.81 ; Nausea R11.0 and History of hiatal hernia Z87.19 [place] [address] [place] [id number] [place] [address] 27 Nov, 2015 Bipolar II disorder F31.81 and Generalized anxiety disorder F41.1 [place] [address] [place] [id number] [place] [address] November, Family history of diabetes mellitus Z83.3 [place] [address] [place] [id number] [place] [address] November, [place] [address] [place] [id number] [place] [address] November, Abnormal serum enzyme level, unspecified R74.9 [place] [address] [place] [id number] [place] [address] 10 Nov, 2015 Routine health maintenance Z00.00 ; Depression with anxiety F41.8 ; Obesity (BMI 35.0-39.9 without comorbidity) E66.01 ; Family history of diabetes mellitus Z83.3 ; Bipolar 2 disorder F31.81 ; Allergic rhinitis J30.9 ; Substance abuse, daily use F19.10 ; GERD (gastroesophageal reflux disease) K21.9 ; History of cluster headache Z86.69 and History of hysterectomy Z90.710 [facility] [id number], [place] [address] November, [facility] [id number] [address] November, [facility] [id number] [address] Oct, Routine health maintenance Z00.00 ; Depression with anxiety F41.8 ; Bipolar 2 disorder F31.81 ; Obesity (BMI 35.0-39.9 without comorbidity) E66.01 ; Allergic rhinitis J30.9 ; Family history of diabetes mellitus Z83.3 ; Substance abuse, daily use F19.10 ; GERD (gastroesophageal reflux disease) K21.9 ; History of cluster headache Z86.69 and History of hysterectomy Z90.710 [facility] [address] [facility] [id number] [id number] Sep, Dental examination Z01.20 IMMUNIZATIONS No Known Immunizations SOCIAL HISTORY Never Assessed REASON FOR VISIT 1 wk f/u DM Ed attempt PLAN OF CARE VITAL SIGNS MEDICATIONS Unknown [...] attempt was at then was sent to [place] Hospitalization History C-diff Hospitalization History for bronchitis or pneumonia Hospitalization History for surgeries as well. Hospitalization History psych inpatient [place] 2014
--- OUTSIDE RECORDS SUMMARY | 2019-01-18 21:24 | XMS REPORT ---
Author Author JOSÉ MIGUEL MAYER [facility] Address [address] [place] [address] Care Team Providers Care State Archivist Name Role Phone LEYLAJOSÉ MIGUEL Unavailable PROBLEMS Type Condition ICD9-CM Code EDJ32-UN Code Onset Dates Condition Status SNOMED Code Problem Chronic pain syndrome G89.4 Active 848309569 Problem Obesity (BMI 30.0-34.9) E66.9 Active 565042907332076 Problem Chronic cluster headache, not intractable G44.029 Active 351599349 Problem Obesity (BMI 35.0-39.9 without comorbidity) E66.01 Active 007100936 Problem Insomnia due to other mental disorder F51.05 Active 22003659 Problem GERD (gastroesophageal reflux disease) K21.9 Active 163073399 Problem Primary insomnia F51.01 Active 9148702 Problem Mental disorder, not otherwise specified F99 Active 46923357 Problem Seasonal allergic rhinitis due to pollen J30.1 Active 17573909 Problem Elevated liver enzymes R74.8 Active 846049858 Problem Substance abuse, daily use F19.10 Active 142205204 Problem Allergic rhinitis J30.9 Active 24373515 Problem Tobacco abuse Z72.0 Active 703000920 Problem Bipolar 2 disorder F31.81 Active 44540348 Problem Tobacco abuse counseling Z71.6 Active 166706544 Problem Depression with anxiety F41.8 Active 064125075 Problem Post menopausal syndrome N95.1 Active 458358634 ALLERGIES Substance Reaction Event Type Date Status iodine/seafood rash, throat swelling Non Drug Allergy May, Active ENCOUNTERS Encounter Location Date Diagnosis [facility] [place] [address] [facility] [id number] [address] Jul, [facility] [place] [address] [facility] [id number] [address] May, [facility] [place] [id number] [place] [address] 05 May, 2018 Obesity (BMI 35.0-39.9 without comorbidity) E66.01 [place] [id number] [place] [address] 05 May, 2018 Bipolar 2 disorder F31.81 [place] [id number] [place] [address] May, Obesity (BMI 30.0-34.9) E66.9 and Obesity (BMI 35.0-39.9 without comorbidity) E66.01 [place] [id number] [place] [address] Apr, [place] [id number] [place] [address] Apr, Bipolar 2 disorder F31.81 [place] [id number] [place] [address] Apr, [place] [id number] [place] [address] Apr, Bipolar 2 disorder F31.81 [place] [id number] [place] [address] Mar, Bipolar 2 disorder F31.81 ; Insomnia due to other mental disorder F51.05 ; Mental disorder, not otherwise specified F99 and Post menopausal syndrome N95.1 [place] [id number] [place] [address] Feb, Bipolar 2 disorder F31.81 ; Tobacco abuse counseling Z71.6 and Seasonal allergic rhinitis due to pollen J30.1 [place] [id number] [place] [address] Feb, Bipolar 2 disorder F31.81 ; Depression with anxiety F41.8 ; Chronic pain syndrome G89.4 ; 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 [address] [address] Aug, [facility] [address] [address] Jun, Chronic cluster headache, not intractable G44.[address] [address] Apr, Primary insomnia F51.01 and Violation of controlled substance agreement Z91.[address] [address] Mar, [address] [address] Feb, [address] [address] Feb, Depression with anxiety F41.8 ; Bipolar 2 disorder F31.81 ; Allergic rhinitis J30.9 ; Tobacco abuse Z72.0 ; Post menopausal syndrome N95.1 ; Chronic pain syndrome G89.4 ; Obesity (BMI 30.0-34.9) E66.9 ; GERD (gastroesophageal reflux disease) K21.9 ; Primary insomnia F51.01 ; Long-term use of high-risk medication Z79.899 and Controlled substance agreement signed Z79.899 [id number] [address] Jan, [place] [id number] [place] [address] Jan, Chronic pain syndrome G89.4 and Depression with anxiety F41.8 [place] [id number] [place] [address] Dec, Chronic pain syndrome G89.4 and Depression with anxiety F41.8 [place] [id number] [place] [address] November, Chronic pain syndrome G89.4 and Depression with anxiety F41.8 [place] [id number] [place] [address] November, Abnormal serum enzyme level, unspecified R74.9 [place] [id number] [place] [address] November, Family history of diabetes mellitus Z83.3 [place] [id number] [place] [address] November, Depression with anxiety F41.8 ; Bipolar 2 disorder F31.81 ; Allergic rhinitis J30.9 ; Nausea R11.0 ; Obesity (BMI 30.0-34.9) E66.9 ; Substance abuse, daily use F19.10 ; Elevated liver enzymes R74.8 ; History of hiatal hernia Z87.19 ; Post menopausal syndrome N95.1 ; Chronic pain syndrome G89.4 and Routine health maintenance Z00.00 [place] [address] [place] [address] Oct, Chronic pain syndrome G89.4 and Depression with anxiety F41.8 [place] [id number] [place] [address] Oct, Family history of diabetes mellitus Z83.3 [place] [address] [place] [address] Sep, [place] [address] [place] [address] Sep, Chronic pain syndrome G89.4 and Depression with anxiety F41.8 [place] [id number] [place] [address] Sep, Depression with anxiety F41.8 [place] [id number] [place] [address] Aug, Chronic pain syndrome G89.4 [facility] [id number] [place] [address] Aug, Chronic cluster headache, not intractable G44.029 [place] [id number] [place] [address] Aug, Depression with anxiety F41.8 ; Bipolar 2 disorder F31.81 ; Obesity (BMI 35.0-39.9 without comorbidity) E66.01 ; Allergic rhinitis J30.9 ; Substance abuse, daily use F19.10 ; Nausea R11.0 ; Tobacco abuse Z72.0 ; Chronic pain syndrome G89.4 ; Hiatal hernia K44.9 and Post menopausal syndrome N95.1 [place] [id number] [place] [address] Aug, [place] [address] [id number] [place] [address] Jul, Chronic pain syndrome G89.4 [place] [id number] [place] [address] Jul, [place] [id number] [place] [address] Jun, Depression with anxiety F41.8 ; Bipolar 2 disorder F31.81 ; Obesity (BMI 35.0-39.9 without comorbidity) E66.01 ; Post menopausal syndrome N95.1 and Chronic pain syndrome G89.4 [facility] [id number] [place] [address] Jun, Bronchitis J40 [facility] [place] [id number] [place] [address] Jun, [facility] [place] [id number] [place] [address] May, [facility] [place] [address] [address] May, Depression with anxiety F41.8 ; Bipolar 2 disorder F31.81 ; Obesity (BMI 35.0-39.9 without comorbidity) E66.01 ; Tobacco abuse Z72.0 and Tobacco abuse counseling Z71.6 [place] [address] [address] May, [facility] [place] [address] [address] Apr, [facility] [address] [address] Apr, Abrasion, right great toe, initial encounter S90.411A and Local infection of the skin and subcutaneous tissue, unspecified L08.9 [place] [address] [address] Apr, [facility] [place] [id number] [place] [address] Mar, Depression with anxiety F41.8 ; Bipolar 2 disorder F31.81 ; Obesity (BMI 35.0-39.9 without comorbidity) E66.01 ; Substance abuse, daily use F19.10 ; Elevated liver enzymes R74.8 ; GERD (gastroesophageal reflux disease) K21.9 and Allergic rhinitis J30.9 [facility] [place] [id number] [place] [address] Mar, [facility] [place] [id number] [place] [address] 06 Mar, 2016 [facility] [place] [address] [address] 05 Feb, 2016 Depression with anxiety F41.8 ; Bipolar 2 disorder F31.81 ; Obesity (BMI 35.0-39.9 without comorbidity) E66.01 ; Substance abuse, daily use F19.10 ; Nausea R11.0 and History of hiatal hernia Z87.19 [place] [id number] [place] [address] Feb, [place] [id number] [place] [address] Feb, Bipolar II disorder F31.81 and Generalized anxiety disorder F41.1 [place] [id number] [place] [address] Jan, [place] [id number] [place] [address] Dec, [place] [id number] [place] [address] Dec, Bipolar II disorder F31.81 ; Nausea R11.0 and History of hiatal hernia Z87.19 [place] [id number] [place] [address] 27 Nov, 2015 Bipolar II disorder F31.81 and Generalized anxiety disorder F41.1 [place] [id number] [place] [address] November, Family history of diabetes mellitus Z83.3 [place] [id number] [place] [address] November, [place] [id number] [place] [address] November, Abnormal serum enzyme level, unspecified R74.9 [place] [address] [place] [address] November, Routine health maintenance Z00.00 ; Depression with anxiety F41.8 ; Obesity (BMI 35.0-39.9 without comorbidity) E66.01 ; Family history of diabetes mellitus Z83.3 ; Bipolar 2 disorder F31.81 ; Allergic rhinitis J30.9 ; Substance abuse, daily use F19.10 ; GERD (gastroesophageal reflux disease) K21.9 ; History of cluster headache Z86.69 and History of hysterectomy Z90.710 [facility] [place] [address] [facility] [id number] [place] [address] November, [facility] [place] [address] [place] [address] [id number] [address] November, [facility] [place] [address] [facility] [id number] [address] Oct, Routine health maintenance Z00.00 ; Depression with anxiety F41.8 ; Bipolar 2 disorder F31.81 ; Obesity (BMI 35.0-39.9 without comorbidity) E66.01 ; Allergic rhinitis J30.9 ; Family history of diabetes mellitus Z83.3 ; Substance abuse, daily use F19.10 ; GERD (gastroesophageal reflux disease) K21.9 ; History of cluster headache Z86.69 and History of hysterectomy Z90.710 [facility] [address] [facility] [id number] [id number] Sep, Dental examination Z01.20 IMMUNIZATIONS No Known Immunizations SOCIAL HISTORY Never Assessed REASON FOR VISIT f/u Yasmine PLAN OF CARE Activity Details Follow Up 2 Months Reason: f/u VITAL SIGNS Height 61 in 2018-05-12 Weight 197.8 lbs 2018-05-12 Heart Rate 84 bpm 2018-05-12 Respiratory Rate 20 2018-05-12 BMI 37.37 kg/m2 2018-05-12 Blood pressure systolic 134 mmHg 2018-05-12 Blood pressure diastolic 76 mmHg 2018-05-12 MEDICATIONS Medication Instructions Dosage Frequency Start Date End Date Duration Status Calcium + D Active Aspir-Low 81 MG Orally Once a day 1 tablet 24h Active Vitamin E 400 UNIT Orally Once a day 1 capsule 24h 30 day(s) Active Fish Oil 1000 MG Orally 2 times a day 1 capsule 12h November, 30 day(s) Active Magnesium 250 MG Orally Once a day 1 tablet with a meal 24h Active Vitamin B Complex - Active Blood Glucose Test Strip one touch ultra mini test blood sugar 12h November, 25 days Active Melatonin 10 MG Orally Once a day 1 tablet at bedtime as needed with food 24h Active Protonix 40 mg Orally Once a day 1 tablet 24h November, Active Estradiol 0.5 MG Orally Once a day 1 tablet every other day 24h Jun, 30 days Active Latuda 40 mg Orally daily 1 tablet every dinner time for one week then take 40mg every dinner time 24h Apr, Active Folic Acid 1 MG Orally Once a day 1 tablet 24h Active Zinc 10 MG as directed Active RESULTS No Results PROCEDURES No Known procedures [...] attempt was at then was sent to [facility] Hospitalization History C-diff Hospitalization History for bronchitis or pneumonia Hospitalization History for surgeries as well. Hospitalization History psych inpatient [facility] 2014
--- NOTE | 2019-01-18 21:25 | ED Chest Pain ---
General Stated Complaint: CHEST PAIN Source: patient Exam Limitations: no limitations (RUT PINEDA APRN) History of Present Illness Date Seen by Provider: Jan 18, 2019 Time Seen by Provider: 21:21 Initial Comments To ER by private vehicle from work. She complains of sudden onset sharp left chest pain that radiates up into the left side of her neck and down the left arm. She is slightly short of breath, taking a deep breath worsens the pain, any abduction of the arm at the shoulder significantly worsens the pain and she describes it as excruciating. 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 She does ashley occasionally. She recently quit taking estrogen. She has also recently been to the chiropractor to have the left shoulder "worked on" Timing/Duration: changing over time Severity/Quality: sharp Radiation: no radiation Activities at Onset: none Prior CP/Workup: no prior chest pain ASA po MUSIC PUBLISHER: No NTG SL MUSIC PUBLISHER: No Associated Symptoms: denies symptoms (RUT PINEDA APRN) Allergies and Home Medications Allergies Uncoded Allergies: SEAFOOD (Allergy, Mild, 10/23/09) Home Medications Alprazolam 1 Mg Tablet, 1 MG PO QID PRN for ANXIETY, (Reported) Ascorbic Acid 500 Mg Tablet, 500 MG PO DAILY, (Reported) Atorvastatin Calcium 20 Mg Tablet, 20 MG PO DAILY, (Reported) Cyclobenzaprine HCl 10 Mg Tablet, 10 MG PO Q8H PRN for SPASMS Prescribed by: YOLANDA COELHO on 01/18/19 232 Estradiol 2 Mg Tablet, 1 MG PO DAILY, (Reported) TAKES 1/2 (2MG) TABLET Hydrocodone Bit/Acetaminophen 1 Tab Tablet, 1 TAB PO QID PRN for PAIN, (Reported) Hydrocodone Bit/Acetaminophen 1 Ea Tablet, 1 EACH PO Q6H Prescribed by: YOLANDA COELHO on 01/18/19 232 Ketorolac Tromethamine 10 Mg Tablet, 10 MG PO Q6H Prescribed by: JCARLOS FORRESTER on 11/11/15 0244 Loratadine 10 Mg Tablet, 10 MG PO DAILY, (Reported) Metoclopramide HCl 5 Mg Tablet, 5 MG PO QID PRN for NAUSEA/VOMITING Prescribed by: KEITH CORNEJO on 02/23/15 1455 Multivitamin 1 Each Tablet, 1 TAB PO DAILY, (Reported) Omeprazole 20 Mg Capsule.dr, 20 MG PO BID, (Reported) Ondansetron HCl 8 Mg Tablet, 8 MG PO QID PRN for NAUSEA, (Reported) Pantoprazole Sodium 40 Mg Tablet.dr, 40 MG PO DAILY Prescribed by: CLARENCE LOPEZ on 03/09/151006 Ranitidine HCl 300 Mg Tablet, 300 MG PO HS, (Reported) Sucralfate 1 Gm Tablet, 1 GM PO QID Prescribed by: CLARENCE LOPEZ on 03/09/151006 Venlafaxine HCl 150 Mg Cap.er.24h, 150 MG PO DAILY, (Reported) Patient Home Medication List Home Medication List Reviewed: Yes (YOLANDA COELHO MD) Review of Systems Review of Systems Constitutional: No chills, No fever Respiratory: See HPI; Denies Cough, Denies Shortness of Air Cardiovascular: Chest Pain; Denies Irregular Heart Rate Gastrointestinal: Denies Abdominal Pain, Denies Nausea, Denies Vomiting Musculoskeletal: see HPI, back pain, joint pain, muscle pain; No neck pain Skin: no symptoms reported Psychiatric/Neurological: Anxiety; Denies Weakness (YOLANDA COELHO MD) Past Irdvkoj-Ywundu-Fqpytf Hx Past Med/Social Hx: Reviewed Nursing Past Med/Soc Hx (YOLANDA COELHO MD) Patient Social History Type Used: Electronic/Vapor Recent Foreign Travel: No Contact w/Someone Who Travel: No Recent Hopitalizations: Yes (RUT PINEDA APRN) Immunizations Up To Date Date of Influenza Vaccine: Jun 07, 2013 (RUT PINEDA APRN) Past Medical History Abdominal, Appendectomy, Gallbladder, Hysterectomy, Oophorectomy High Cholesterol Headaches /Migraines Reproductive Disorders: Yes Female 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 3.0oz. 74.171183yu; 33.06 BMI Method:Stated (PINEDA,PETER J ROR ENGINEER) General Appearance: WD/WN, Moderate Distress Neck: Non Tender, Supple Respiratory: Lungs Clear, Normal Breath Sounds, Other (tender to the area of back just medial to the scapula towards the distal end.) Cardiovascular: Regular Rate, Rhythm, No Murmur Gastrointestinal: Non Tender, Soft Extremity: Normal Range of Motion, Other (pain with moving the left arm to the area of the chest and back.) Neurologic/Psychiatric: Alert, Oriented x3 Skin: Normal Color, Warm/Dry (YOLANDA COELHO MD) Progress/Results/Core Measures Results/Orders Lab Results Laboratory Tests Test 01/18/19 21:15 Range/Units White Blood Count 9.8 4.3-11.0 10^3/uL Red Blood Count 4.80 4.35-5.85 10^6/uL Hemoglobin 13.9 11.5-16.0 G/DL Hematocrit 41 35-52 % Mean Corpuscular Volume 85 80-99 FL Mean Corpuscular Hemoglobin 29 25-34 PG Mean Corpuscular Hemoglobin Concent 34 32-36 G/DL Red Cell Distribution Width 12.7 10.0-14.5 % Platelet Count 324 130-400 10^3/uL Mean Platelet Volume 10.3 7.4-10.4 FL Neutrophils (%) (Auto) 49 42-75 % Lymphocytes (%) (Auto) 42 12-44 % Monocytes (%) (Auto) 6 0-12 % Eosinophils (%) (Auto) 3 0-10 % Basophils (%) (Auto) 0 0-10 % Neutrophils # (Auto) 4.8 1.8-7.8 X 10^3 Lymphocytes # (Auto) 4.1 H 1.0-4.0 X 10^3 Monocytes # (Auto) 0.6 0.0-1.0 X 10^3 Eosinophils # (Auto) 0.3 0.0-0.3 10^3/uL Basophils # (Auto) 0.0 0.0-0.1 10^3/uL D-Dimer 0.55 H 0.00-0.49 UG/ML Sodium Level 140 135-145 MMOL/L Potassium Level 3.8 3.6-5.0 MMOL/L Chloride Level 105 98-107 MMOL/L Carbon Dioxide Level 21 21-32 MMOL/L Anion Gap 14 5-14 MMOL/L Blood Urea Nitrogen 12 7-18 MG/DL Creatinine 0.86 0.60-1.30 MG/DL Estimat Glomerular Filtration Rate > 60 BUN/Creatinine Ratio 14 Glucose Level 85 70-105 MG/DL Calcium Level 10.7 H 8.5-10.1 MG/DL Corrected Calcium 8.5-10.1 MG/DL Total Bilirubin 0.3 0.1-1.0 MG/DL Aspartate Amino Transf (AST/SGOT) 31 5-34 U/L Alanine Aminotransferase (ALT/SGPT) 46 0-55 U/L Alkaline Phosphatase 153 H 40-136 U/L Troponin I < 0.028 <0.028 NG/ML Total Protein 8.3 H 6.4-8.2 GM/DL Albumin 5.0 H 3.2-4.5 GM/DL (YOLANDA COELHO MD) My Orders Orders - YOLANDA COELHO MD Ketorolac Injection (Toradol Injection) (01/18/19 22:50) Rx-Hydrocodone/Apap 5-325 Mg (Rx-Vicodin (01/18/19 23:30) Cyclobenzaprine Tablet (Flexeril Tablet) (01/18/19 23:18) (YOLANDA COELHO MD) Medications Given in ED Current Medications Medications Dose Ordered Sig/Clem Route Start Time Stop Time Status Last Admin Dose Admin Acetaminophen/ Hydrocodone Bitart 1 ea Q4H PRN PO 01/18/19 23:30 01/18/19 23:29 1 EA Fentanyl Citrate 50 mcg ONCE ONCE IVP 01/18/19 21:30 01/18/19 21:31 DC 01/18/19 21:34 50 MCG Fentanyl Citrate 50 mcg ONCE ONCE IVP 01/18/19 22:00 01/18/19 22:01 DC 01/18/19 22:33 50 MCG Ketorolac Tromethamine 15 mg ONCE ONCE IVP 01/18/19 21:30 01/18/19 21:31 DC 01/18/19 21:34 15 MG Lorazepam 0.5 mg ONCE PRN IVP 01/18/19 21:45 01/18/19 21:50 0.5 MG (YOLANDA COELHO MD) Vital Signs/I&O 01/18/19 01/18/19 21:18 21:18 Temp 97.3 Pulse 89 Resp 20 B/P (MAP) 116/90 (99) Pulse Ox 95 O2 Delivery Room Air Room Air (YOLANDA COELHO MD) Progress Progress Note : Progress Note Assumed care from., ROR ENGINEER pending CT scan. CT does show left fifth rib fracture and I do believe this is the cause of her pain. She did receive second dose of Toradol 15 mg a the. We will give her a go pack of hydrocodone as well as I'll give her a Flexeril now. Discharged home with return precautions. Patient verbalize understanding instructions and agreement with plan. RT teaching for incentive spirometry done. (YOLANDA COELHO MD) Diagnostic Imaging Diagonstic Imaging: CT Plain Films/CT/US/NM/MRI: chest Comments There is a fracture of the left posterior lateral fifth rib. Mild pleural thickening is noted adjacent to the fracture site. There is no pneumothorax or hemothorax. Hazy interstitial infiltrates bilaterally. No pulmonary emboli. Diagonstic Imaging: Xray Plain Films/CT/US/NM/MRI: other (left shoulder) Comments No acute findings Reviewed: Reviewed by Me (YOLANDA COELHO MD) Departure Impression Primary Impression: Left rib fracture Qualified Codes: S22.32XA - Fracture of one rib, left side, initial encounter for closed fracture Disposition: HOME, SELF-CARE Condition: Stable Departure-Patient Inst. Decision time for Depature: 23:23 (YOLANDA COELHO MD) Referrals: [facility] (PCP/Family) Primary Care Physician Patient Instructions: Rib Fracture (DC) Add. Discharge Instructions: Take medications as directed.You may take ibuprofen 800 mg every 8 hours as needed for pain. You may also take Tylenol/acetaminophen 1000 mg every 8 hours as needed for pain. Space take Tylenol/acetaminophen if you're taking the prescribed pain medicine as they both have acetaminophen in them.You may use [id number] Icy Hot with lidocaine patches, Aspercreme with lidocaine patches, Salonpas with lidocaine patches or similar items such as roll-on cream to area of concern per package directions. It is very important that he follow up with your in a few days for recheck and for further evaluation. Return for worse pain, fever, breathing problems, weakness or other concerns as needed. You may not take muscle relaxers or narcotic pain medicine while working, driving or doing anything else that requires full alertness. Scripts Hydrocodone Bit/Acetaminophen (LORTAB 7.5 MG TABLET) 1 Ea Tablet 1 EACH PO Q6H, #10 TAB 0 Refills Prov: YOLANDA COELHO MD 01/18/19 Cyclobenzaprine HCl (Cyclobenzaprine HCl) 10 Mg Tablet 10 MG PO Q8H PRN for SPASMS, #12 TAB 0 Refills Prov: YOLANDA COELHO MD 01/18/19 Work/School Note: Work Release Form Date Seen in the Emergency Department: Jan 18, 2019 Return to Work: Jan 20, 2019 Restrictions: No Restrictions RUT PINEDA APRN Jan 18, 2019 21:25 YOLANDA COELHO MD Jan 18, 2019 23:26
--- OUTSIDE RECORDS SUMMARY | 2019-01-18 21:25 | XMS REPORT ---
Author Author WHITNEY CLEMENTE [facility] Address [address] [place] [address] Care Team Providers Care Academic Affairs Director Name Role Phone BRYNWHITNEY Unavailable PROBLEMS Type Condition ICD9-CM Code EKE96-LH Code Onset Dates Condition Status SNOMED Code Problem Post menopausal syndrome N95.1 Active 236261633 Problem Chronic cluster headache, not intractable G44.029 Active 018130605 Problem Chronic pain syndrome G89.4 Active 671196813 Problem Insomnia due to other mental disorder F51.05 Active 62098891 Problem Mental disorder, not otherwise specified F99 Active 77871895 Problem Primary insomnia F51.01 Active 8378816 Problem Obesity (BMI 30.0-34.9) E66.9 Active [id number] Problem Seasonal allergic rhinitis due to pollen J30.1 Active 31303038 Problem GERD (gastroesophageal reflux disease) K21.9 Active 542718730 Problem Elevated liver enzymes R74.8 Active 057555712 Problem Bipolar 2 disorder F31.81 Active 01573046 Problem Depression with anxiety F41.8 Active 014935103 Problem Allergic rhinitis J30.9 Active 42521210 Problem Tobacco abuse Z72.0 Active 242928954 Problem Substance abuse, daily use F19.10 Active 692977117 Problem Tobacco abuse counseling Z71.6 Active 439735848 ALLERGIES Substance Reaction Event Type Date Status iodine/seafood Unknown Non Drug Allergy Mar, Active ENCOUNTERS Encounter Location Date Diagnosis [facility] [address] [facility] [id number] [address] Apr, [facility] [address] [id number] [address] Mar, Bipolar 2 disorder F31.81 ; Insomnia due to other mental disorder F51.05 ; Mental disorder, not otherwise specified F99 and Post menopausal syndrome N95.1 [place] [id number] [place] [address] Feb, Bipolar 2 disorder F31.81 ; Tobacco abuse counseling Z71.6 and Seasonal allergic rhinitis due to pollen J30.1 [place] [id number] [place] [address] 10 Feb, 2018 Bipolar 2 disorder F31.81 ; Depression with anxiety F41.8 ; Chronic pain syndrome G89.4 ; spiritual counselor (current) use of 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 Z79.891 ; Abnormal serum enzyme level, unspecified R74.9 ; Elevated liver enzymes R74.8 and Tobacco abuse Z72.[address] [address] Feb, Depression with anxiety F41.8 ; Chronic pain syndrome G89.4 and spiritual counselor (current) use of 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 Z79.[address] [address] Oct, Bipolar 2 disorder F31.81 ; Depression with anxiety F41.8 ; Elevated liver enzymes R74.8 ; Tobacco abuse Z72.0 ; Chronic pain syndrome G89.4 ; GERD (gastroesophageal reflux disease) K21.9 ; Primary insomnia F51.01 ; Post menopausal syndrome N95.1 and Nausea R11.0 [facility] [address] [place] [address] Aug, [facility] [address] [place] [address] Jun, Chronic cluster headache, not intractable G44.[address] [address] Apr, Primary insomnia F51.01 and Violation of controlled substance agreement Z91.14 [place] [id number] [place] [address] Mar, [address] [address] Feb, [place] [id number] [place] [address] Feb, Depression with anxiety F41.8 ; Bipolar 2 disorder F31.81 ; Allergic rhinitis J30.9 ; Tobacco abuse Z72.0 ; Post menopausal syndrome N95.1 ; Chronic pain syndrome G89.4 ; Obesity (BMI 30.0-34.9) E66.9 ; GERD (gastroesophageal reflux disease) K21.9 ; Primary insomnia F51.01 ; Long-term use of high-risk medication Z79.899 and Controlled substance agreement signed Z79.899 [place] [id number] [place] [address] Jan, [place] [id number] [place] [address] Jan, Chronic pain syndrome G89.4 and Depression with anxiety F41.8 [place] [id number] [place] [address] Dec, Chronic pain syndrome G89.4 and Depression with anxiety F41.8 [place] [id number] [place] [address] November, Chronic pain syndrome G89.4 and Depression with anxiety F41.8 [place] [id number] [place] [address] November, Abnormal serum enzyme level, unspecified R74.9 [place] [id number] [place] [address] November, Family history of diabetes mellitus Z83.3 [place] [id number] [place] [address] November, Depression with anxiety F41.8 ; Bipolar 2 disorder F31.81 ; Allergic rhinitis J30.9 ; Nausea R11.0 ; Obesity (BMI 30.0-34.9) E66.9 ; Substance abuse, daily use F19.10 ; Elevated liver enzymes R74.8 ; History of hiatal hernia Z87.19 ; Post menopausal syndrome N95.1 ; Chronic pain syndrome G89.4 and Routine health maintenance Z00.00 [place] [id number] [place] [address] Oct, Chronic pain syndrome G89.4 and Depression with anxiety F41.8 [facility] [id number] [place] [address] Oct, Family history of diabetes mellitus Z83.3 [place] [id number] [place] [address] Sep, [place] [address] [address] Sep, Chronic pain syndrome G89.4 and Depression with anxiety F41.8 [place] [address] [address] Sep, Depression with anxiety F41.8 [place] [id number] [place] [address] Aug, Chronic pain syndrome G89.4 [facility] [id number] [place] [address] Aug, Chronic cluster headache, not intractable G44.029 [place] [id number] [place] [address] Aug, Depression with anxiety F41.8 ; Bipolar 2 disorder F31.81 ; Obesity (BMI 35.0-39.9 without comorbidity) E66.01 ; Allergic rhinitis J30.9 ; Substance abuse, daily use F19.10 ; Nausea R11.0 ; Tobacco abuse Z72.0 ; Chronic pain syndrome G89.4 ; Hiatal hernia K44.9 and Post menopausal syndrome N95.1 [facility] [id number] [place] [address] Aug, [place] [address] [address] Jul, Chronic pain syndrome G89.4 [facility] [id number] [place] [address] Jul, [facility] [id number] [place] [address] Jun, Depression with anxiety F41.8 ; Bipolar 2 disorder F31.81 ; Obesity (BMI 35.0-39.9 without comorbidity) E66.01 ; Post menopausal syndrome N95.1 and Chronic pain syndrome G89.4 [facility] [id number] [place] [address] Jun, Bronchitis J40 [place] [address] [address] Jun, [place] [address] [address] May, [place] [address] [address] May, Depression with anxiety F41.8 ; Bipolar 2 disorder F31.81 ; Obesity (BMI 35.0-39.9 without comorbidity) E66.01 ; Tobacco abuse Z72.0 and Tobacco abuse counseling Z71.6 [place] [id number] [place] [address] May, [place] [id number] [place] [address] Apr, [facility] [id number] [place] [address] Apr, Abrasion, right great toe, initial encounter S90.411A and Local infection of the skin and subcutaneous tissue, unspecified L08.9 [place] [id number] [place] [address] Apr, [facility] [id number] [place] [address] Mar, Depression with anxiety F41.8 ; Bipolar 2 disorder F31.81 ; Obesity (BMI 35.0-39.9 without comorbidity) E66.01 ; Substance abuse, daily use F19.10 ; Elevated liver enzymes R74.8 ; GERD (gastroesophageal reflux disease) K21.9 and Allergic rhinitis J30.9 [place] [id number] [place] [address] Mar, [place] [address] [address] Mar, [place] [address] [address] 05 Feb, 2016 Depression with anxiety F41.8 ; Bipolar 2 disorder F31.81 ; Obesity (BMI 35.0-39.9 without comorbidity) E66.01 ; Substance abuse, daily use F19.10 ; Nausea R11.0 and History of hiatal hernia Z87.19 [place] [address] [address] Feb, [place] [address] [address] Feb, Bipolar II disorder F31.81 and Generalized anxiety disorder F41.1 [place] [id number] [place] [address] Jan, [place] [id number] [place] [address] Dec, [place] [address] [address] Dec, Bipolar II disorder F31.81 ; Nausea R11.0 and History of hiatal hernia Z87.[address] [address] November, Bipolar II disorder F31.81 and Generalized anxiety disorder F41.1 [place] [id number] [place] [address] November, Family history of diabetes mellitus Z83.3 [facility] [address] [address] November, [facility] [id number] [place] [address] November, Abnormal serum enzyme level, unspecified R74.9 [facility] [id number] [place] [address] November, Routine health maintenance Z00.00 ; Depression with anxiety F41.8 ; Obesity (BMI 35.0-39.9 without comorbidity) E66.01 ; Family history of diabetes mellitus Z83.3 ; Bipolar 2 disorder F31.81 ; Allergic rhinitis J30.9 ; Substance abuse, daily use F19.10 ; GERD (gastroesophageal reflux disease) K21.9 ; History of cluster headache Z86.69 and History of hysterectomy Z90.710 [place] [address] [id number] [place] [address] November, [facility] [id number] [place] [address] November, [place] [id number] [place] [address] Oct, Routine health maintenance Z00.00 ; Depression with anxiety F41.8 ; Bipolar 2 disorder F31.81 ; Obesity (BMI 35.0-39.9 without comorbidity) E66.01 ; Allergic rhinitis J30.9 ; Family history of diabetes mellitus Z83.3 ; Substance abuse, daily use F19.10 ; GERD (gastroesophageal reflux disease) K21.9 ; History of cluster headache Z86.69 and History of hysterectomy Z90.710 [facility] [address] [place] [phone] Sep, Dental examination Z01.20 IMMUNIZATIONS No Known Immunizations SOCIAL HISTORY Never Assessed REASON FOR VISIT New provider visit.-[facility] PLAN OF CARE Activity Details Follow Up 3 months Reason: VITAL SIGNS Height 61 in 2018-03-28 Weight 192.5 lbs 2018-03-28 Temperature 98.3 degrees Fahrenheit 2018-03-28 Heart Rate 72 bpm 2018-03-28 Respiratory Rate 20 2018-03-28 BMI 36.37 kg/m2 2018-03-28 Blood pressure systolic 118 mmHg 2018-03-28 Blood pressure diastolic 64 mmHg 2018-03-28 MEDICATIONS Medication Instructions Dosage Frequency Start Date End Date Duration Status Calcium + D Active Estradiol 0.5 MG Orally Once a day 1 tablet every other day 24h Jun, 30 days Active Ambien 5 mg Orally Once a day 1 tablet at bedtime 24h Mar, 28 days Active Fish Oil 1000 MG Orally 2 times a day 1 capsule 12h November, 30 day(s) Active Effexor XR 150 MG Orally Once a day TAKE ONE CAPSULE BY MOUTH ONCE DAILY WITH FOOD 24h Active Magnesium 250 MG Orally Once a day 1 tablet with a meal 24h Active Blood Glucose Test Strip one touch ultra mini test blood sugar 12h November, 25 days Active Protonix 40 mg Orally Once a day 1 tablet 24h November, Active Folic Acid 1 MG Orally Once a day 1 tablet 24h Active Aripiprazole 15 mg Orally Once a day 1 tablet 24h Feb, Active Aspir-Low 81 MG Orally Once a day 1 tablet 24h Active Melatonin 10 MG Orally Once a day 1 tablet at bedtime as needed with food 24h Active Vitamin B Complex - Active RESULTS No Results PROCEDURES No Known [...] attempt was at then was sent to [facility] History C-diff Hospitalization History for bronchitis or pneumonia Hospitalization History for surgeries as well.
--- OUTSIDE RECORDS SUMMARY | 2019-01-18 21:25 | XMS REPORT ---
Author Author WHITNEY CLEMENTE [facility] Address [address] [place] [address] Care Team Providers Care Nut Roaster Helper Name Role Phone WHITNEY CLEMENTE Unavailable PROBLEMS Type Condition ICD9-CM Code [id number] Code Onset Dates Condition Status SNOMED Code Problem Chronic pain syndrome G89.4 Active 231478778 Problem Obesity (BMI 30.0-34.9) E66.9 Active 326585303298234 Problem Chronic cluster headache, not intractable G44.029 Active 525516232 Problem Obesity (BMI 35.0-39.9 without comorbidity) E66.01 Active 143088232 Problem Insomnia due to other mental disorder F51.05 Active 16871851 Problem GERD (gastroesophageal reflux disease) K21.9 Active 111891984 Problem Primary insomnia F51.01 Active 9029087 Problem Mental disorder, not otherwise specified F99 Active 09949946 Problem Seasonal allergic rhinitis due to pollen J30.1 Active 40494730 Problem Elevated liver enzymes R74.8 Active 609202703 Problem Substance abuse, daily use F19.10 Active 131079555 Problem Allergic rhinitis J30.9 Active 93920487 Problem Tobacco abuse Z72.0 Active 816877600 Problem Bipolar 2 disorder F31.81 Active 04190427 Problem Tobacco abuse counseling Z71.6 Active 919102964 Problem Depression with anxiety F41.8 Active 360001183 Problem Post menopausal syndrome N95.1 Active 290083118 ALLERGIES No Information ENCOUNTERS Encounter Location Date Diagnosis [facility], [place] [id number], [place] [address] Jul, [facility] [place] [id number] [address] May, Obesity (BMI 35.0-39.9 without comorbidity) E66.01 [facility] [place] [id number] [place] [address] 05 May, 2018 Bipolar 2 disorder F31.81 [place] [id number] [place] [address] May, Obesity (BMI 30.0-34.9) E66.9 and Obesity (BMI 35.0-39.9 without comorbidity) E66.01 [place] [id number] [place] [address] Apr, [place] [id number] [place] [address] Apr, Bipolar 2 disorder F31.81 [address] [address] [address] [address] Apr, [place] [id number] [place] [address] Apr, Bipolar 2 disorder F31.81 [place] [id number] [place] [address] Mar, Bipolar 2 disorder F31.81 ; Insomnia due to other mental disorder F51.05 ; Mental disorder, not otherwise specified F99 and Post menopausal syndrome N95.1 [place] [id number] [place] [address] Feb, Bipolar 2 disorder F31.81 ; Tobacco abuse counseling Z71.6 and Seasonal allergic rhinitis due to pollen J30.1 [place] [id number] [place] [address] Feb, Bipolar 2 disorder F31.81 ; Depression with anxiety F41.8 ; Chronic pain syndrome G89.4 ; terminal supervisor (current) use of 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 Z79.891 ; Abnormal serum enzyme level, unspecified R74.9 ; Elevated liver enzymes R74.8 and Tobacco abuse Z72.0 [place] [id number] [place] [address] Feb, Depression with anxiety F41.8 ; Chronic pain syndrome G89.4 and halfway (current) use of 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 Z79.891 [place] [address] [address] Oct, Bipolar 2 disorder F31.81 ; Depression with anxiety F41.8 ; Elevated liver enzymes R74.8 ; Tobacco abuse Z72.0 ; Chronic pain syndrome G89.4 ; GERD (gastroesophageal reflux disease) K21.9 ; Primary insomnia F51.01 ; Post menopausal syndrome N95.1 and Nausea R11.0 [facility] [address] [address] Aug, [facility] [address] [place] [address] Jun, Chronic cluster headache, not intractable G44.[address] [address] Apr, Primary insomnia F51.01 and Violation of controlled substance agreement Z91.14 [id number] [place] [address] Mar, [address] [address] Feb, [address] [id number] [place] [address] Feb, Depression with anxiety F41.8 ; Bipolar 2 disorder F31.81 ; Allergic rhinitis J30.9 ; Tobacco abuse Z72.0 ; Post menopausal syndrome N95.1 ; Chronic pain syndrome G89.4 ; Obesity (BMI 30.0-34.9) E66.9 ; GERD (gastroesophageal reflux disease) K21.9 ; Primary insomnia F51.01 ; Long-term use of high-risk medication Z79.899 and Controlled substance agreement signed Z79.899 [id number] [place] [address] Jan, [address] [address] Jan, Chronic pain syndrome G89.4 and Depression with anxiety F41.8 [place] [address] [place] [address] Dec, Chronic pain syndrome G89.4 and Depression with anxiety F41.8 [place] [id number] [place] [address] November, Chronic pain syndrome G89.4 and Depression with anxiety F41.8 [place] [id number] [place] [address] November, Abnormal serum enzyme level, unspecified R74.9 [place] [id number] [place] [address] November, Family history of diabetes mellitus Z83.3 [place] [id number] [place] [address] November, Depression with anxiety F41.8 ; Bipolar 2 disorder F31.81 ; Allergic rhinitis J30.9 ; Nausea R11.0 ; Obesity (BMI 30.0-34.9) E66.9 ; Substance abuse, daily use F19.10 ; Elevated liver enzymes R74.8 ; History of hiatal hernia Z87.19 ; Post menopausal syndrome N95.1 ; Chronic pain syndrome G89.4 and Routine health maintenance Z00.00 [place] [id number] [place] [address] Oct, Chronic pain syndrome G89.4 and Depression with anxiety F41.8 [place] [address] [place] [address] Oct, Family history of diabetes mellitus Z83.3 [place] [id number] [place] [address] Sep, [place] [id number] [place] [address] Sep, Chronic pain syndrome G89.4 and Depression with anxiety F41.8 [place] [address] [place] [address] Sep, Depression with anxiety F41.8 [place] [id number] [place] [address] Aug, Chronic pain syndrome G89.4 [facility] [address] [place] [address] Aug, Chronic cluster headache, not intractable G44.029 [place] [id number] [place] [address] Aug, Depression with anxiety F41.8 ; Bipolar 2 disorder F31.81 ; Obesity (BMI 35.0-39.9 without comorbidity) E66.01 ; Allergic rhinitis J30.9 ; Substance abuse, daily use F19.10 ; Nausea R11.0 ; Tobacco abuse Z72.0 ; Chronic pain syndrome G89.4 ; Hiatal hernia K44.9 and Post menopausal syndrome N95.1 [place] [id number] [place] [address] Aug, [place] [id number] [place] [address] Jul, Chronic pain syndrome G89.4 [place] [address] [place] [address] Jul, [place] [address] [place] [address] Jun, Depression with anxiety F41.8 ; Bipolar 2 disorder F31.81 ; Obesity (BMI 35.0-39.9 without comorbidity) E66.01 ; Post menopausal syndrome N95.1 and Chronic pain syndrome G89.4 [facility] [address] [place] [address] Jun, Bronchitis J40 [facility], [place] [address] [place] [address] Jun, [place] [id number] [place] [address] May, [facility] [place] [id number] [place] [address] May, Depression with anxiety F41.8 ; Bipolar 2 disorder F31.81 ; Obesity (BMI 35.0-39.9 without comorbidity) E66.01 ; Tobacco abuse Z72.0 and Tobacco abuse counseling Z71.6 [place] [id number] [place] [address] May, [facility] [place] [id number] [place] [address] Apr, [facility] [id number] [place] [address] Apr, Abrasion, right great toe, initial encounter S90.411A and Local infection of the skin and subcutaneous tissue, unspecified L08.9 [place] [id number] [place] [address] Apr, [place] [id number] [place] [address] Mar, Depression with anxiety F41.8 ; Bipolar 2 disorder F31.81 ; Obesity (BMI 35.0-39.9 without comorbidity) E66.01 ; Substance abuse, daily use F19.10 ; Elevated liver enzymes R74.8 ; GERD (gastroesophageal reflux disease) K21.9 and Allergic rhinitis J30.9 [place] [address] [place] [address] Mar, [place] [id number] [place] [address] Mar, [id number] [place] [address] Feb, Depression with anxiety F41.8 ; Bipolar 2 disorder F31.81 ; Obesity (BMI 35.0-39.9 without comorbidity) E66.01 ; Substance abuse, daily use F19.10 ; Nausea R11.0 and History of hiatal hernia Z87.19 [place] [id number] [place] [address] Feb, [place] [id number] [place] [address] 02 Feb, 2016 Bipolar II disorder F31.81 and Generalized anxiety disorder F41.1 [place] [address] [address] Jan, [place] [id number] [place] [address] Dec, [place] [address] [address] Dec, Bipolar II disorder F31.81 ; Nausea R11.0 and History of hiatal hernia Z87.19 [place] [address] [address] 27 Nov, 2015 Bipolar II disorder F31.81 and Generalized anxiety disorder F41.1 [place] [id number] [place] [address] 19 Nov, 2015 Family history of diabetes mellitus Z83.3 [place] [id number] [place] [address] 13 Nov, 2015 [place] [id number] [place] [address] November, Abnormal serum enzyme level, unspecified R74.9 [place] [id number] [place] [address] 10 Nov, 2015 Routine health maintenance Z00.00 ; Depression with anxiety F41.8 ; Obesity (BMI 35.0-39.9 without comorbidity) E66.01 ; Family history of diabetes mellitus Z83.3 ; Bipolar 2 disorder F31.81 ; Allergic rhinitis J30.9 ; Substance abuse, daily use F19.10 ; GERD (gastroesophageal reflux disease) K21.9 ; History of cluster headache Z86.69 and History of hysterectomy Z90.710 [facility] [place] [address] [facility] [id number] [address] November, [facility] [place] [id number], [place] [address] November, [facility] [place] [address] [facility] [id number] [address] Oct, Routine health maintenance Z00.00 ; Depression with anxiety F41.8 ; Bipolar 2 disorder F31.81 ; Obesity (BMI 35.0-39.9 without comorbidity) E66.01 ; Allergic rhinitis J30.9 ; Family history of diabetes mellitus Z83.3 ; Substance abuse, daily use F19.10 ; GERD (gastroesophageal reflux disease) K21.9 ; History of cluster headache Z86.69 and History of hysterectomy Z90.710 [facility] [address] [facility] [id number] [id number] Sep, Dental examination Z01.20 IMMUNIZATIONS No Known Immunizations SOCIAL HISTORY Never Assessed REASON FOR VISIT Lab (walk-in) PLAN OF CARE Activity Details Pending Test INSULIN LEVEL VITAL SIGNS MEDICATIONS Unknown Medications RESULTS No Results PROCEDURES Procedure Date Ordered Result Body Site ASSAY OF INSULIN May 12, 2018 VENIPUNCT, ROUTINE* May 12, 2018 INSTRUCTIONS MEDICATIONS ADMINISTERED No Known Medications MEDICAL [...] attempt was at then was sent to [facility] Hospitalization History C-diff Hospitalization History for bronchitis or pneumonia Hospitalization History for surgeries as well. Hospitalization History psych inpatient [facility] 2014
--- OUTSIDE RECORDS SUMMARY | 2019-01-18 21:25 | XMS REPORT ---
Author Author BOGDAN FINK Organization [facility] Address [address] [place] [address] Care Team Providers Care Provider Network Manager Name Role Phone ALEKS BOGDAN Unavailable PROBLEMS Type Condition ICD9-CM Code [id number] Code Onset Dates Condition Status SNOMED Code Problem Nausea R11.0 Active 202623232 Problem Tobacco abuse counseling Z71.6 Active 991274828 Problem Tobacco abuse Z72.0 Active 632350053 Problem Primary insomnia F51.01 Active 9277935 Problem GERD (gastroesophageal reflux disease) K21.9 Active 681448655 Problem Chronic pain syndrome G89.4 Active 027436877 Problem Post menopausal syndrome N95.1 Active 948306215 Problem Obesity (BMI 30.0-34.9) E66.9 Active 969492393257377 Problem Chronic cluster headache, not intractable G44.029 Active 186935697 Problem Elevated liver enzymes R74.8 Active 468755263 Problem Family history of diabetes mellitus Z83.3 Active 567662860 Problem Bipolar 2 disorder F31.81 Active 77998758 Problem Depression with anxiety F41.8 Active 994247763 Problem Routine health maintenance Z00.00 Active 669397921 Problem Allergic rhinitis J30.9 Active 81368665 Problem Substance abuse, daily use F19.10 Active 662980105 Problem History of hiatal hernia Z87.19 Active 209003915 ALLERGIES No Information SOCIAL HISTORY Never Assessed PLAN OF CARE VITAL SIGNS MEDICATIONS Medication Instructions Dosage Frequency Start Date End Date Duration Status Blood Glucose Test Strip one touch ultra mini test blood sugar 12h November, 25 days Active RESULTS No Results PROCEDURES No Known procedures IMMUNIZATIONS No Known Immunizations MEDICAL (GENERAL) HISTORY Type Description Date Medical History bronchitis Medical History blood thinners--used for cluster headaches Medical History cluster headaches Medical History bipolar disorder Medical History suicidal attempts x2--- OD on her Geodon Surgical History endrometriosis surgerys x 8 Surgical History gallbladder Surgical History hysterectomy Surgical History left shoulder arthroscopy Surgical History wisdom tooth extractions Hospitalization History OD for suicide attempt was at then was sent to [facility] Hospitalization History C-diff Hospitalization History for bronchitis or pneumonia Hospitalization History for surgeries as well.
--- OUTSIDE RECORDS SUMMARY | 2019-01-18 21:25 | XMS REPORT ---
Author Author WHITNEY CLEMENTE [facility] Address [address] [place] [address] Care Team Providers Care Supervisor Yard Name Role Phone WHITNEY CLEMENTE Unavailable PROBLEMS Type Condition ICD9-CM Code [id number] Code Onset Dates Condition Status SNOMED Code Problem Chronic pain syndrome G89.4 Active 029697474 Problem Obesity (BMI 30.0-34.9) E66.9 Active 885340963240910 Problem Chronic cluster headache, not intractable G44.029 Active 363613002 Problem Obesity (BMI 35.0-39.9 without comorbidity) E66.01 Active 564901035 Problem Insomnia due to other mental disorder F51.05 Active 72842065 Problem GERD (gastroesophageal reflux disease) K21.9 Active 174563793 Problem Primary insomnia F51.01 Active 8397191 Problem Mental disorder, not otherwise specified F99 Active 65433638 Problem Seasonal allergic rhinitis due to pollen J30.1 Active 62978450 Problem Elevated liver enzymes R74.8 Active 392337715 Problem Substance abuse, daily use F19.10 Active 081370263 Problem Allergic rhinitis J30.9 Active 87879991 Problem Tobacco abuse Z72.0 Active 814331011 Problem Bipolar 2 disorder F31.81 Active 03541363 Problem Tobacco abuse counseling Z71.6 Active 065963597 Problem Depression with anxiety F41.8 Active 855156305 Problem Post menopausal syndrome N95.1 Active 098144270 ALLERGIES No Information ENCOUNTERS Encounter Location Date Diagnosis [facility] [address] [facility] [id number] [address] May, [facility] [address] [id number] [address] May, Obesity (BMI 30.0-34.9) E66.9 and Obesity (BMI 35.0-39.9 without comorbidity) E66.01 [place] [address] [place] [address] Apr, [place] [address] [id number] [place] [address] Apr, Bipolar 2 disorder F31.81 [place] [address] [id number] [place] [address] Apr, [place] [id number] [place] [address] Apr, Bipolar 2 disorder F31.81 [place] [address] [id number] [place] [address] Mar, Bipolar 2 disorder F31.81 ; Insomnia due to other mental disorder F51.05 ; Mental disorder, not otherwise specified F99 and Post menopausal syndrome N95.1 [place] [address] [address] Feb, Bipolar 2 disorder F31.81 ; Tobacco abuse counseling Z71.6 and Seasonal allergic rhinitis due to pollen J30.1 [place] [address] [id number] [place] [address] Feb, Bipolar 2 disorder F31.81 ; Depression with anxiety F41.8 ; Chronic pain syndrome G89.4 ; 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 ; Abnormal serum enzyme level, unspecified R74.9 ; Elevated liver enzymes R74.8 and Tobacco abuse Z72.0 [place] [address] [place] [address] Feb, Depression with anxiety F41.8 ; Chronic pain syndrome G89.4 and 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 [place] [address] [place] [address] Oct, Bipolar 2 disorder F31.81 ; Depression with anxiety F41.8 ; Elevated liver enzymes R74.8 ; Tobacco abuse Z72.0 ; Chronic pain syndrome G89.4 ; GERD (gastroesophageal reflux disease) K21.9 ; Primary insomnia F51.01 ; Post menopausal syndrome N95.1 and Nausea R11.0 [facility] [id number] [place] [address] Aug, [facility] [id number] [place] [address] Jun, Chronic cluster headache, not intractable G44.029 [place] [address] [address] Apr, Primary insomnia F51.01 and Violation of controlled substance agreement Z91.[address] [address] Mar, [place] [address] [address] Feb, [address] [address] Feb, Depression with anxiety F41.8 ; Bipolar 2 disorder F31.81 ; Allergic rhinitis J30.9 ; Tobacco abuse Z72.0 ; Post menopausal syndrome N95.1 ; Chronic pain syndrome G89.4 ; Obesity (BMI 30.0-34.9) E66.9 ; GERD (gastroesophageal reflux disease) K21.9 ; Primary insomnia F51.01 ; Long-term use of high-risk medication Z79.899 and Controlled substance agreement signed Z79.899 [place] [address] [id number] [place] [address] Jan, [place] [address] [id number] [place] [address] Jan, Chronic pain syndrome G89.4 and Depression with anxiety F41.8 [place] [id number] [place] [address] Dec, Chronic pain syndrome G89.4 and Depression with anxiety F41.8 [place] [address] [address] November, Chronic pain syndrome G89.4 and Depression with anxiety F41.8 [place] [address] [id number] [place] [address] November, Abnormal serum enzyme level, unspecified R74.9 [place] [address] [id number] [place] [address] November, Family history of diabetes mellitus Z83.3 [place] [address] [id number] [place] [address] November, Depression with anxiety F41.8 ; Bipolar 2 disorder F31.81 ; Allergic rhinitis J30.9 ; Nausea R11.0 ; Obesity (BMI 30.0-34.9) E66.9 ; Substance abuse, daily use F19.10 ; Elevated liver enzymes R74.8 ; History of hiatal hernia Z87.19 ; Post menopausal syndrome N95.1 ; Chronic pain syndrome G89.4 and Routine health maintenance Z00.00 [place] [id number] [place] [address] Oct, Chronic pain syndrome G89.4 and Depression with anxiety F41.8 [place] [address] [id number] [place] [address] Oct, Family history of diabetes mellitus Z83.3 [place] [address] [id number] [place] [address] Sep, [place] [address] [id number] [place] [address] Sep, Chronic pain syndrome G89.4 and Depression with anxiety F41.8 [place] [address] [id number] [place] [address] Sep, Depression with anxiety F41.8 [place] [address] [address] [id number] [place] [address] Aug, Chronic pain syndrome G89.4 [facility] [id number] [place] [address] 09 Aug, 2016 Chronic cluster headache, not intractable G44.029 [place] [address] [address] Aug, Depression with anxiety F41.8 ; Bipolar 2 disorder F31.81 ; Obesity (BMI 35.0-39.9 without comorbidity) E66.01 ; Allergic rhinitis J30.9 ; Substance abuse, daily use F19.10 ; Nausea R11.0 ; Tobacco abuse Z72.0 ; Chronic pain syndrome G89.4 ; Hiatal hernia K44.9 and Post menopausal syndrome N95.1 [place] [address] [address] Aug, [place] [address] [address] Jul, Chronic pain syndrome G89.4 [place] [address] [address] Jul, [place] [address] [address] Jun, Depression with anxiety F41.8 ; Bipolar 2 disorder F31.81 ; Obesity (BMI 35.0-39.9 without comorbidity) E66.01 ; Post menopausal syndrome N95.1 and Chronic pain syndrome G89.4 [facility] [id number] [place] [address] Jun, Bronchitis J40 [facility] [id number] [place] [address] Jun, [place] [address] [address] May, [facility] [address] [address] May, Depression with anxiety F41.8 ; Bipolar 2 disorder F31.81 ; Obesity (BMI 35.0-39.9 without comorbidity) E66.01 ; Tobacco abuse Z72.0 and Tobacco abuse counseling Z71.6 [facility] [address] [place] [address] May, [facility] [id number] [place] [address] Apr, [facility] [id number] [place] [address] Apr, Abrasion, right great toe, initial encounter S90.411A and Local infection of the skin and subcutaneous tissue, unspecified L08.9 [place] [id number] [place] [address] Apr, [place] [address] [address] Mar, Depression with anxiety F41.8 ; Bipolar 2 disorder F31.81 ; Obesity (BMI 35.0-39.9 without comorbidity) E66.01 ; Substance abuse, daily use F19.10 ; Elevated liver enzymes R74.8 ; GERD (gastroesophageal reflux disease) K21.9 and Allergic rhinitis J30.9 [place] [id number] [place] [address] Mar, [place] [id number] [place] [address] Mar, [place] [id number] [place] [address] Feb, Depression with anxiety F41.8 ; Bipolar 2 disorder F31.81 ; Obesity (BMI 35.0-39.9 without comorbidity) E66.01 ; Substance abuse, daily use F19.10 ; Nausea R11.0 and History of hiatal hernia Z87.19 [place] [id number] [place] [address] Feb, [place] [id number] [place] [address] Feb, Bipolar II disorder F31.81 and Generalized anxiety disorder F41.1 [place] [address] [address] [id number] [place] [address] Jan, [place] [address] [id number] [place] [address] Dec, [place] [address] [address] Dec, Bipolar II disorder F31.81 ; Nausea R11.0 and History of hiatal hernia Z87.19 [place] [address] [address] November, Bipolar II disorder F31.81 and Generalized anxiety disorder F41.1 [place] [address] [address] November, Family history of diabetes mellitus Z83.[address] [address] November, [place] [address] [address] [id number] [place] [address] November, Abnormal serum enzyme level, unspecified R74.9 [place] [address] [address] [id number] [place] [address] November, Routine health maintenance Z00.00 ; Depression with anxiety F41.8 ; Obesity (BMI 35.0-39.9 without comorbidity) E66.01 ; Family history of diabetes mellitus Z83.3 ; Bipolar 2 disorder F31.81 ; Allergic rhinitis J30.9 ; Substance abuse, daily use F19.10 ; GERD (gastroesophageal reflux disease) K21.9 ; History of cluster headache Z86.69 and History of hysterectomy Z90.710 [place] [id number] [place] [address] November, [place] [id number] [place] [address] November, [place] [address] [address] Oct, 2016 Routine health maintenance Z00.00 ; Depression with anxiety F41.8 ; Bipolar 2 disorder F31.81 ; Obesity (BMI 35.0-39.9 without comorbidity) E66.01 ; Allergic rhinitis J30.9 ; Family history of diabetes mellitus Z83.3 ; Substance abuse, daily use F19.10 ; GERD (gastroesophageal reflux disease) K21.9 ; History of cluster headache Z86.69 and History of hysterectomy Z90.710 [facility] [address] [facility] [id number] [place] [id number] Sep, Dental examination Z01.20 IMMUNIZATIONS No Known Immunizations SOCIAL HISTORY Never Assessed REASON FOR VISIT PLAN OF CARE VITAL SIGNS MEDICATIONS Unknown [...] attempt was at then was sent to [place] Hospitalization History C-diff Hospitalization History for bronchitis or pneumonia Hospitalization History for surgeries as well. Hospitalization History psych inpatient [place] 2014
--- OUTSIDE RECORDS SUMMARY | 2019-01-18 21:26 | XMS REPORT ---
Author Author DMITRY DE LOS SANTOS [facility] Address [address] [place] [address] Care Team Providers Care Packing Machine Can Feeder Name Role Phone DMITRY DE LOS SANTOS Unavailable PROBLEMS Type Condition ICD9-CM Code BFT69-UL Code Onset Dates Condition Status SNOMED Code Problem Routine health maintenance Z00.00 Active 176052085 Problem Nausea R11.0 Active 553050982 Problem History of hiatal hernia Z87.19 Active 512630118 Problem Obesity (BMI 30.0-34.9) E66.9 Active 151571106212562 Problem Chronic cluster headache, not intractable G44.029 Active 509906659 Problem Tobacco abuse Z72.0 Active 405216411 Problem Tobacco abuse counseling Z71.6 Active 260521197 Problem Post menopausal syndrome N95.1 Active 091865655 Problem Chronic pain syndrome G89.4 Active 294232388 Problem Family history of diabetes mellitus Z83.3 Active 297558885 Problem Allergic rhinitis J30.9 Active 65233754 Problem Elevated liver enzymes R74.8 Active 673672508 Problem Bipolar 2 disorder F31.81 Active 16624960 Problem Substance abuse, daily use F19.10 Active 636626236 Problem Depression with anxiety F41.8 Active 460927012 ALLERGIES Substance Reaction Event Type Date Status iodine/seafood Unknown Non Drug Allergy Jun, Active SOCIAL HISTORY No smoking Hx information available PLAN OF CARE VITAL SIGNS Height 5'1" in 2016-06-23 Weight 171.2 lbs 2016-06-23 Temperature 101.2 degrees Fahrenheit 2016-06-23 Heart Rate 100 bpm 2016-06-23 Respiratory Rate 22 2016-06-23 BMI 32.34 kg/m2 2016-06-23 Blood pressure systolic 90 mmHg 2016-06-23 Blood pressure diastolic 60 mmHg 2016-06-23 MEDICATIONS Medication Instructions Dosage Frequency Start Date End Date Duration Status Estradiol 1 MG Orally Once a day 1 tablet 24h November, Active Geodon 80 MG Orally Once a day 1 tablet 24h 30 Active Effexor XR 150 MG Orally Once a day 1 capsule with food 24h November, Active Claritin 10 mg Orally Once a day 1 tablet 24h Active PredniSONE 20 MG Orally Once a day 1 tablet 24h Jun, Jul, 30 day(s) Active Ondansetron 4 MG DISSOLVE ONE TABLET BY MOUTH EVERY 8 HOURS NEEDED 20 Active Amoxicillin 500 MG Orally every 12 hrs 1 capsule 12h Jun, Jun, 10 day(s) Active Aspir-Low 81 MG Orally Once a day 1 tablet 24h Active Blood Glucose Test Strip One Touch Verio test blood sugar 12h November, Active Hydrocodone-Acetaminophen 7.5-325 MG Orally every 6 hrs 1 tablet as needed 6h Active Protonix 20 mg Orally twice a day 1 tablets 12h Dec, Active Promethazine-Codeine 6.25-10 MG/5ML Orally every 6 hrs 5 ml as needed 6h Jun, Active Xanax 1 MG Orally 4 times a day MUST LAST 4 WEEKS 1 tablet Active RESULTS No Results PROCEDURES Procedure Date Ordered Related Diagnosis Body Site Office Visit, Est Pt., Level 3 Jun 23, 2016 IMMUNIZATIONS No Known Immunizations
--- OUTSIDE RECORDS SUMMARY | 2019-01-18 21:26 | XMS REPORT ---
Author Author BOGDAN FINK Organization [employer] Address Unknown Phone Unavailable Care Team Providers Care Wheat Shipper Name Role Phone BOGDAN FINK CP Unavailable Allergies No Known Allergies Problems Problem Type Condition Code Onset Dates Condition Status Problem Family history of diabetes mellitus Z83.3 Active Problem Obesity (BMI 35.0-39.9 without comorbidity) E66.01 Active Problem Allergic rhinitis J30.9 Active Problem Elevated liver enzymes R74.8 Active Problem Substance abuse, daily use F19.10 Active Problem Tobacco abuse counseling Z71.6 Active Problem Nausea R11.0 Active Problem Tobacco abuse Z72.0 Active Problem Depression with anxiety F41.8 Active Problem Bipolar 2 disorder F31.81 Active Problem History of hiatal hernia Z87.19 Active Problem Routine health maintenance Z00.00 Active Medications Medication Code System Code Instructions Start Date End Date Status Dosage Vicoprofen [facility] [address]-86 7.5-200 MG Orally 4 times a day MUST LAST 4 WEEKS May 17, 2016 1 tablet as needed Results No Known Results Summary Purpose [employer] Submission
--- OUTSIDE RECORDS SUMMARY | 2019-01-18 21:26 | XMS REPORT ---
Author Author ALEKS BOGDAN Organization [facility] Address [address] [place] [address] Care Team Providers Care Yarn Rewinder Name Role Phone FINKBOGDAN Alfredo Unavailable PROBLEMS Type Condition ICD9-CM Code SRX76-XO Code Onset Dates Condition Status SNOMED Code Problem Nausea R11.0 Active 559634185 Problem Tobacco abuse counseling Z71.6 Active 130138453 Problem Tobacco abuse Z72.0 Active 411393862 Problem Primary insomnia F51.01 Active 9872964 Problem GERD (gastroesophageal reflux disease) K21.9 Active 422332197 Problem Chronic pain syndrome G89.4 Active 199114078 Problem Post menopausal syndrome N95.1 Active 067115028 Problem Obesity (BMI 30.0-34.9) E66.9 Active [id number] Problem Chronic cluster headache, not intractable G44.029 Active 008421049 Problem Elevated liver enzymes R74.8 Active 197852536 Problem Family history of diabetes mellitus Z83.3 Active 585774226 Problem Bipolar 2 disorder F31.81 Active 98615013 Problem Depression with anxiety F41.8 Active 737034147 Problem Routine health maintenance Z00.00 Active 628145921 Problem Allergic rhinitis J30.9 Active 76457351 Problem Substance abuse, daily use F19.10 Active 066456827 Problem History of hiatal hernia Z87.19 Active 189330607 ALLERGIES No Information ENCOUNTERS Encounter Location Date Diagnosis [facility] [address] [facility] [id number] [address] Oct, Bipolar 2 disorder F31.81 ; Depression with anxiety F41.8 ; Elevated liver enzymes R74.8 ; Tobacco abuse Z72.0 ; Chronic pain syndrome G89.4 ; GERD (gastroesophageal reflux disease) K21.9 ; Primary insomnia F51.01 ; Post menopausal syndrome N95.1 and Nausea R11.0 [facility] [id number] [address] Aug, [facility] [id number] [place] [address] Jun, Chronic cluster headache, not intractable G44.029 [facility] [id number] [place] [address] Apr, Primary insomnia F51.01 and Violation of controlled substance agreement Z91.14 [facility] [id number] [place] [address] Mar, [place] [address] [address] Feb, [facility] [id number] [place] [address] Feb, Depression with anxiety F41.8 ; Bipolar 2 disorder F31.81 ; Allergic rhinitis J30.9 ; Tobacco abuse Z72.0 ; Post menopausal syndrome N95.1 ; Chronic pain syndrome G89.4 ; Obesity (BMI 30.0-34.9) E66.9 ; GERD (gastroesophageal reflux disease) K21.9 ; Primary insomnia F51.01 ; Long-term use of high-risk medication Z79.899 and Controlled substance agreement signed Z79.899 [place] [id number] [place] [address] Jan, [facility] [id number] [place] [address] Jan, Chronic pain syndrome G89.4 and Depression with anxiety F41.8 [place] [id number] [place] [address] Dec, Chronic pain syndrome G89.4 and Depression with anxiety F41.8 [place] [id number] [place] [address] November, Chronic pain syndrome G89.4 and Depression with anxiety F41.8 [place] [address] [place] [address] November, Abnormal serum enzyme level, unspecified R74.9 [place] [address] [address] November, Family history of diabetes mellitus Z83.3 [place] [id number] [place] [address] November, Depression with anxiety F41.8 ; Bipolar 2 disorder F31.81 ; Allergic rhinitis J30.9 ; Nausea R11.0 ; Obesity (BMI 30.0-34.9) E66.9 ; Substance abuse, daily use F19.10 ; Elevated liver enzymes R74.8 ; History of hiatal hernia Z87.19 ; Post menopausal syndrome N95.1 ; Chronic pain syndrome G89.4 and Routine health maintenance Z00.00 [place] [address] [address] Oct, Chronic pain syndrome G89.4 and Depression with anxiety F41.8 [facility] [address] [address] Oct, Family history of diabetes mellitus Z83.3 [place] [address] [address] Sep, [place] [address] [address] Sep, Chronic pain syndrome G89.4 and Depression with anxiety F41.8 [facility] [id number] [place] [address] Sep, Depression with anxiety F41.8 [place] [id number] [place] [address] Aug, Chronic pain syndrome G89.4 [facility] IN [facility] [id number] [place] [address] Aug, Chronic cluster headache, not intractable G44.029 [place] [address] [place] [address] 03 Aug, 2016 Depression with anxiety F41.8 ; Bipolar 2 disorder F31.81 ; Obesity (BMI 35.0-39.9 without comorbidity) E66.01 ; Allergic rhinitis J30.9 ; Substance abuse, daily use F19.10 ; Nausea R11.0 ; Tobacco abuse Z72.0 ; Chronic pain syndrome G89.4 ; Hiatal hernia K44.9 and Post menopausal syndrome N95.1 [facility] [address] [address] Aug, [place] [address] [address] Jul, Chronic pain syndrome G89.4 [place] [address] [address] Jul, [place] [address] [address] Jun, Depression with anxiety F41.8 ; Bipolar 2 disorder F31.81 ; Obesity (BMI 35.0-39.9 without comorbidity) E66.01 ; Post menopausal syndrome N95.1 and Chronic pain syndrome G89.4 [facility] [id number] [place] [address] Jun, Bronchitis J40 [place] [id number] [place] [address] Jun, [place] [address] [address] May, [place] [address] [address] May, Depression with anxiety F41.8 ; Bipolar 2 disorder F31.81 ; Obesity (BMI 35.0-39.9 without comorbidity) E66.01 ; Tobacco abuse Z72.0 and Tobacco abuse counseling Z71.6 [facility] [address] [address] May, [facility] [address] [address] Apr, [facility] IN [facility] [id number] [place] [address] Apr, Abrasion, right great toe, initial encounter S90.411A and Local infection of the skin and subcutaneous tissue, unspecified L08.9 [facility] [id number] [place] [address] Apr, [facility] [id number] [place] [address] Mar, Depression with anxiety F41.8 ; Bipolar 2 disorder F31.81 ; Obesity (BMI 35.0-39.9 without comorbidity) E66.01 ; Substance abuse, daily use F19.10 ; Elevated liver enzymes R74.8 ; GERD (gastroesophageal reflux disease) K21.9 and Allergic rhinitis J30.9 [facility] [id number] [place] [address] Mar, [facility] [id number] [place] [address] Mar, [place] [id number] [place] [address] Feb, Depression with anxiety F41.8 ; Bipolar 2 disorder F31.81 ; Obesity (BMI 35.0-39.9 without comorbidity) E66.01 ; Substance abuse, daily use F19.10 ; Nausea R11.0 and History of hiatal hernia Z87.19 [facility] [address] [place] [address] Feb, [place] [id number] [place] [address] Feb, Bipolar II disorder F31.81 and Generalized anxiety disorder F41.1 [place] [id number] [place] [address] Jan, [place] [address] [address] Dec, [place] [id number] [place] [address] Dec, Bipolar II disorder F31.81 ; Nausea R11.0 and History of hiatal hernia Z87.19 [place] [id number] [place] [address] November, Bipolar II disorder F31.81 and Generalized anxiety disorder F41.1 [place] [id number] [place] [address] November, Family history of diabetes mellitus Z83.3 [place] [id number] [place] [address] November, [place] [id number] [place] [address] November, Abnormal serum enzyme level, unspecified R74.9 [place] [id number] [place] [address] November, Routine health maintenance Z00.00 ; Depression with anxiety F41.8 ; Obesity (BMI 35.0-39.9 without comorbidity) E66.01 ; Family history of diabetes mellitus Z83.3 ; Bipolar 2 disorder F31.81 ; Allergic rhinitis J30.9 ; Substance abuse, daily use F19.10 ; GERD (gastroesophageal reflux disease) K21.9 ; History of cluster headache Z86.69 and History of hysterectomy Z90.710 [place] [address] [address] November, [place] [id number] [place] [address] November, [place] [id number] [place] [address] Oct, Routine health maintenance Z00.00 ; Depression with anxiety F41.8 ; Bipolar 2 disorder F31.81 ; Obesity (BMI 35.0-39.9 without comorbidity) E66.01 ; Allergic rhinitis J30.9 ; Family history of diabetes mellitus Z83.3 ; Substance abuse, daily use F19.10 ; GERD (gastroesophageal reflux disease) K21.9 ; History of cluster headache Z86.69 and History of hysterectomy Z90.710 [facility] [address] [facility] [id number] [place] [id number] Sep, Dental examination Z01.20 IMMUNIZATIONS No Known Immunizations SOCIAL HISTORY Never Assessed REASON FOR VISIT Requests return call PLAN OF CARE VITAL SIGNS MEDICATIONS No Known Medications RESULTS No Results PROCEDURES No Known [...] attempt was at then was sent to [place] Hospitalization History C-diff Hospitalization History for bronchitis or pneumonia Hospitalization History for surgeries as well.
--- OUTSIDE RECORDS SUMMARY | 2019-01-18 21:26 | XMS REPORT ---
Author Author BOGDAN FINK Organization [facility] Address [address] [place] [address] Care Team Providers Care Retort Feeder Ground Bone Name Role Phone ALEKS BOGDAN Unavailable PROBLEMS Type Condition ICD9-CM Code AJB18-GM Code Onset Dates Condition Status SNOMED Code Problem Nausea R11.0 Active 933553641 Problem Tobacco abuse counseling Z71.6 Active 932466909 Problem Tobacco abuse Z72.0 Active 606122553 Problem Primary insomnia F51.01 Active 1173694 Problem GERD (gastroesophageal reflux disease) K21.9 Active 345568716 Problem Chronic pain syndrome G89.4 Active 984009918 Problem Post menopausal syndrome N95.1 Active 245616177 Problem Obesity (BMI 30.0-34.9) E66.9 Active 455131871893183 Problem Chronic cluster headache, not intractable G44.029 Active 434138759 Problem Elevated liver enzymes R74.8 Active 592899777 Problem Family history of diabetes mellitus Z83.3 Active 293140774 Problem Bipolar 2 disorder F31.81 Active 78215162 Problem Depression with anxiety F41.8 Active 796027363 Problem Routine health maintenance Z00.00 Active 865256230 Problem Allergic rhinitis J30.9 Active 79014175 Problem Substance abuse, daily use F19.10 Active 461942920 Problem History of hiatal hernia Z87.19 Active 570338703 ALLERGIES No Information SOCIAL HISTORY Never Assessed PLAN OF CARE VITAL SIGNS MEDICATIONS Medication Instructions Dosage Frequency Start Date End Date Duration Status Xanax 1 MG Orally 4 times a day MUST LAST 4 WEEKS 1 tablet 28 days Active RESULTS No Results PROCEDURES No [...] attempt was at then was sent to [place] Hospitalization History C-diff Hospitalization History for bronchitis or pneumonia Hospitalization History for surgeries as well.
--- OUTSIDE RECORDS SUMMARY | 2019-01-18 21:26 | XMS REPORT ---
Author Author BOGDAN FINK Organization [facility] Address [address] [place] [address] Care Team Providers Care Laborer/Key Man Name Role Phone FINKREED AlfredoELE Unavailable PROBLEMS Type Condition ICD9-CM Code WIQ52-FN Code Onset Dates Condition Status SNOMED Code Problem Nausea R11.0 Active 104574197 Problem Tobacco abuse counseling Z71.6 Active 789593076 Problem Tobacco abuse Z72.0 Active 569627772 Problem Primary insomnia F51.01 Active 9426813 Problem GERD (gastroesophageal reflux disease) K21.9 Active 861813909 Problem Chronic pain syndrome G89.4 Active 322392260 Problem Post menopausal syndrome N95.1 Active 153287839 Problem Obesity (BMI 30.0-34.9) E66.9 Active [id number] Problem Chronic cluster headache, not intractable G44.029 Active 033968728 Problem Elevated liver enzymes R74.8 Active 178852716 Problem Family history of diabetes mellitus Z83.3 Active 786167783 Problem Bipolar 2 disorder F31.81 Active 79753114 Problem Depression with anxiety F41.8 Active 262907137 Problem Routine health maintenance Z00.00 Active 494523418 Problem Allergic rhinitis J30.9 Active 62855914 Problem Substance abuse, daily use F19.10 Active 103348571 Problem History of hiatal hernia Z87.19 Active 576855023 ALLERGIES Substance Reaction Event Type Date Status iodine/seafood Unknown Non Drug Allergy Feb, Active ENCOUNTERS Encounter Location Date Diagnosis [facility] [address] [facility] [id number] [address] Oct, Bipolar 2 disorder F31.81 ; Depression with anxiety F41.8 ; Elevated liver enzymes R74.8 ; Tobacco abuse Z72.0 ; Chronic pain syndrome G89.4 ; GERD (gastroesophageal reflux disease) K21.9 ; Primary insomnia F51.01 ; Post menopausal syndrome N95.1 and Nausea R11.0 [facility] [id number] [place] [phone] Aug, [facility] [id number] [place] [address] Jun, Chronic cluster headache, not intractable G44.029 [place] [id number] [place] [phone] Apr, Primary insomnia F51.01 and Violation of controlled substance agreement Z91.14 [place] [id number] [place] [phone] Mar, [place] [id number] [place] [phone] Feb, [place] [id number] [place] [phone] Feb, Depression with anxiety F41.8 ; Bipolar 2 disorder F31.81 ; Allergic rhinitis J30.9 ; Tobacco abuse Z72.0 ; Post menopausal syndrome N95.1 ; Chronic pain syndrome G89.4 ; Obesity (BMI 30.0-34.9) E66.9 ; GERD (gastroesophageal reflux disease) K21.9 ; Primary insomnia F51.01 ; Long-term use of high-risk medication Z79.899 and Controlled substance agreement signed Z79.899 [place] [id number] [place] [phone] Jan, [place] [id number] [place] [phone] Jan, Chronic pain syndrome G89.4 and Depression with anxiety F41.8 [place] [id number] [place] [phone] Dec, Chronic pain syndrome G89.4 and Depression with anxiety F41.8 [place] [id number] [place] [phone] November, Chronic pain syndrome G89.4 and Depression with anxiety F41.8 [place] [id number] [place] [phone] November, Abnormal serum enzyme level, unspecified R74.9 [place] [id number] [place] [phone] November, Family history of diabetes mellitus Z83.3 [place] [id number] [place] [phone] November, Depression with anxiety F41.8 ; Bipolar 2 disorder F31.81 ; Allergic rhinitis J30.9 ; Nausea R11.0 ; Obesity (BMI 30.0-34.9) E66.9 ; Substance abuse, daily use F19.10 ; Elevated liver enzymes R74.8 ; History of hiatal hernia Z87.19 ; Post menopausal syndrome N95.1 ; Chronic pain syndrome G89.4 and Routine health maintenance Z00.00 [place] [address] [address] Oct, Chronic pain syndrome G89.4 and Depression with anxiety F41.8 [place] [id number] [place] [phone] Oct, Family history of diabetes mellitus Z83.3 [place] [id number] [place] [phone] Sep, [place] [id number] [place] [phone] Sep, Chronic pain syndrome G89.4 and Depression with anxiety F41.8 [place] [id number] [place] [phone] Sep, Depression with anxiety F41.8 [place] [id number] [place] [phone] Aug, Chronic pain syndrome G89.4 [facility] [id number] [place] [phone] Aug, Chronic cluster headache, not intractable G44.029 [facility] [id number] [place] [phone] 03 Aug, 2016 Depression with anxiety F41.8 ; Bipolar 2 disorder F31.81 ; Obesity (BMI 35.0-39.9 without comorbidity) E66.01 ; Allergic rhinitis J30.9 ; Substance abuse, daily use F19.10 ; Nausea R11.0 ; Tobacco abuse Z72.0 ; Chronic pain syndrome G89.4 ; Hiatal hernia K44.9 and Post menopausal syndrome N95.1 [place] [id number] [place] [phone] Aug, [place] [address] [address] Jul, Chronic pain syndrome G89.4 [place] [id number] [place] [phone] Jul, [place] [address] [address] Jun, Depression with anxiety F41.8 ; Bipolar 2 disorder F31.81 ; Obesity (BMI 35.0-39.9 without comorbidity) E66.01 ; Post menopausal syndrome N95.1 and Chronic pain syndrome G89.4 [facility] [id number] [place] [phone] 17 Jun, 2016 Bronchitis J40 [place] [id number] [place] [phone] 02 Jun, 2016 [place] [id number] [place] [phone] May, [address] [address] May, Depression with anxiety F41.8 ; Bipolar 2 disorder F31.81 ; Obesity (BMI 35.0-39.9 without comorbidity) E66.01 ; Tobacco abuse Z72.0 and Tobacco abuse counseling Z71.6 [place] [address] [place] [address] May, [facility] [id number] [place] [phone] Apr, [facility] [id number] [place] [id number] Apr, Abrasion, right great toe, initial encounter S90.411A and Local infection of the skin and subcutaneous tissue, unspecified L08.9 [facility] [id number] [place] [phone] Apr, [facility] [id number] [place] [phone] Mar, Depression with anxiety F41.8 ; Bipolar 2 disorder F31.81 ; Obesity (BMI 35.0-39.9 without comorbidity) E66.01 ; Substance abuse, daily use F19.10 ; Elevated liver enzymes R74.8 ; GERD (gastroesophageal reflux disease) K21.9 and Allergic rhinitis J30.9 [facility] [id number] [place] [phone] Mar, [facility] [id number] [place] [phone] Mar, [place] [id number] [place] [phone] Feb, Depression with anxiety F41.8 ; Bipolar 2 disorder F31.81 ; Obesity (BMI 35.0-39.9 without comorbidity) E66.01 ; Substance abuse, daily use F19.10 ; Nausea R11.0 and History of hiatal hernia Z87.19 [place] [id number] [place] [phone] Feb, [place] [id number] [place] [phone] Feb, Bipolar II disorder F31.81 and Generalized anxiety disorder F41.1 [place] [id number] [place] [address] Jan, [place] [id number] [place] [phone] Dec, [place] [address] [address] Dec, Bipolar II disorder F31.81 ; Nausea R11.0 and History of hiatal hernia Z87.19 [place] [address] [address] November, Bipolar II disorder F31.81 and Generalized anxiety disorder F41.1 [place] [address] [address] November, Family history of diabetes mellitus Z83.3 [place] [address] [address] November, [place] [id number] [place] [address] November, Abnormal serum enzyme level, unspecified R74.9 [place] [id number] [place] [address] November, Routine health maintenance Z00.00 ; Depression with anxiety F41.8 ; Obesity (BMI 35.0-39.9 without comorbidity) E66.01 ; Family history of diabetes mellitus Z83.3 ; Bipolar 2 disorder F31.81 ; Allergic rhinitis J30.9 ; Substance abuse, daily use F19.10 ; GERD (gastroesophageal reflux disease) K21.9 ; History of cluster headache Z86.69 and History of hysterectomy Z90.710 [place] [address] [place] [phone] November, [place] [id number] [place] [phone] November, [place] [id number] [place] [phone] Oct, Routine health maintenance Z00.00 ; Depression with anxiety F41.8 ; Bipolar 2 disorder F31.81 ; Obesity (BMI 35.0-39.9 without comorbidity) E66.01 ; Allergic rhinitis J30.9 ; Family history of diabetes mellitus Z83.3 ; Substance abuse, daily use F19.10 ; GERD (gastroesophageal reflux disease) K21.9 ; History of cluster headache Z86.69 and History of hysterectomy Z90.710 [facility] [address] [facility] [id number] [place], [place] [id number] Sep, Dental examination Z01.20 IMMUNIZATIONS No Known Immunizations SOCIAL HISTORY Never Assessed REASON FOR VISIT Depression--tcuppettRN PLAN OF CARE Activity Details Follow Up 4 Weeks Reason:insomnia f/u VITAL SIGNS Height 5'1" in 2017-02-22 Weight 175.8 lbs 2017-02-22 Temperature 98.3 degrees Fahrenheit 2017-02-22 Heart Rate 80 bpm 2017-02-22 Respiratory Rate 18 2017-02-22 BMI 33.21 kg/m2 2017-02-22 Blood pressure systolic 124 mmHg 2017-02-22 Blood pressure diastolic 82 mmHg 2017-02-22 MEDICATIONS Medication Instructions Dosage Frequency Start Date End Date Duration Status Hydrocodone-Acetaminophen 7.5-325 MG Orally every 6 hrs 1 tablet as needed 6h Feb, 28 days Active Xanax 1 MG Orally 4 times a day MUST LAST 4 WEEKS 1 tablet 28 days Active Estradiol 0.5 MG Orally every other day 1 tablet every other day Jun, 90 days Active Aspir-Low 81 MG Orally Once a day 1 tablet 24h Active Protonix 40 mg Orally Once a day 1 tablet 24h November, 90 days Active Melatonin 10 MG Orally Once a day 1 tablet at bedtime as needed with food 24h Active Multivitamin Women - Active Fish Oil 1000 MG Orally 2 times a day 1 capsule 12h November, 30 day(s) Active Blood Glucose Test Strip one touch ultra mini test blood sugar 12h November, 25 days Active Effexor XR 150 MG Orally Once a day TAKE ONE CAPSULE BY MOUTH ONCE DAILY WITH FOOD 24h 90 days Active Claritin 10 mg Orally Once a day 1 tablet 24h 90 days Active Geodon 80 MG Orally Once a day TAKE ONE TABLET BY MOUTH ONCE DAILY 24h 90 days Active Lunesta 1 MG Orally Once a day 1 tablet immediately before bedtime 24h Feb, 30 days Active Ondansetron 4 MG Orally every 8 hours, PRN DISSOLVE ONE TABLET BY MOUTH EVERY 8 HOURS NEEDED 20 Active RESULTS No Results PROCEDURES Procedure Date Ordered Result Body Site No Charge Feb 22, 2017 INSTRUCTIONS MEDICATIONS ADMINISTERED No Known Medications MEDICAL [...] attempt was at then was sent to [place] Hospitalization History C-diff Hospitalization History for bronchitis or pneumonia Hospitalization History for surgeries as well.
--- OUTSIDE RECORDS SUMMARY | 2019-01-18 21:26 | XMS REPORT ---
Author Author JOEL KIM [facility] [employer] Address Unknown Phone Unavailable Care Team Providers Care Director Cardiovascular Name Role Phone JOEL KIM Unavailable Allergies No Known Allergies Problems Problem Type Condition Code Onset Dates Condition Status Problem Family history of diabetes mellitus Z83.3 Active Problem Obesity (BMI 35.0-39.9 without comorbidity) E66.01 Active Problem Allergic rhinitis J30.9 Active Problem Generalized anxiety disorder F41.1 Active Problem Nausea R11.0 Active Problem Bipolar II disorder F31.81 Active Problem Depression with anxiety F41.8 Active Problem Bipolar 2 disorder F31.81 Active Problem History of hiatal hernia Z87.19 Active Problem Routine health maintenance Z00.00 Active Assessment Generalized anxiety disorder F41.1 Active Assessment Bipolar II disorder F31.81 Active Problem Elevated liver enzymes R74.8 Active Problem Substance abuse, daily use F19.10 Active Medications No Known Medications Procedures Procedure Coding System Code Date Psychotherapy, patient &/family, 45 minutes, established patient CPT-4 96087 Feb 07, 2016 Results No Known Results Summary Purpose [employer] Submission
--- OUTSIDE RECORDS SUMMARY | 2019-01-18 21:26 | XMS REPORT ---
Author Author BOGDAN FINK Organization [employer] Address Unknown Phone Unavailable Care Team Providers Care Drug Safety Assistant Name Role Phone BOGDAN FINK CP Unavailable Allergies No Known Allergies Problems Problem Type Condition Code Onset Dates Condition Status Problem Elevated liver enzymes R74.8 Active Problem Family history of diabetes mellitus Z83.3 Active Problem Substance abuse, daily use F19.10 Active Problem History of hiatal hernia Z87.19 Active Problem Routine health maintenance Z00.00 Active Problem Nausea R11.0 Active Problem Obesity (BMI 35.0-39.9 without comorbidity) E66.01 Active Problem Allergic rhinitis J30.9 Active Problem Depression with anxiety F41.8 Active Problem Bipolar 2 disorder F31.81 Active Medications Medication Code System Code Instructions Start Date End Date Status Dosage Xanax [facility] [address]-02 1 MG Orally 4 times a day MUST LAST 4 WEEKS 1 tablet Results No Known Results Summary Purpose [employer]ClinicalWorks Submission
--- OUTSIDE RECORDS SUMMARY | 2019-01-18 21:27 | XMS REPORT ---
Author Author FINKBOGDAN Alfredo Organization [facility] Address [address] [place] [address] Care Team Providers Care Bilingual Loan Processor Name Role Phone BOGDAN FINK Unavailable PROBLEMS Type Condition ICD9-CM Code ZUU19-RG Code Onset Dates Condition Status SNOMED Code Problem Tobacco abuse Z72.0 Active 345668295 Problem Post menopausal syndrome N95.1 Active 890378329 Problem Tobacco abuse counseling Z71.6 Active 186373656 Problem Seasonal allergic rhinitis due to pollen J30.1 Active 41389119 Problem GERD (gastroesophageal reflux disease) K21.9 Active 076436231 Problem Chronic cluster headache, not intractable G44.029 Active 791448879 Problem Chronic pain syndrome G89.4 Active 692776553 Problem Primary insomnia F51.01 Active 5385281 Problem Obesity (BMI 30.0-34.9) E66.9 Active 321016942970570 Problem Allergic rhinitis J30.9 Active 12402098 Problem Substance abuse, daily use F19.10 Active 537694297 Problem Bipolar 2 disorder F31.81 Active 87748064 Problem Elevated liver enzymes R74.8 Active 937544424 Problem Depression with anxiety F41.8 Active 803555023 ALLERGIES No Information ENCOUNTERS Encounter Location Date Diagnosis [facility] [id number] [address] Mar, [facility] [id number] [place] [address] Feb, Bipolar 2 disorder F31.81 ; Tobacco abuse counseling Z71.6 and Seasonal allergic rhinitis due to pollen J30.1 [facility] [id number] [address] Feb, Bipolar 2 disorder F31.81 ; Depression with anxiety F41.8 ; Chronic pain syndrome G89.4 ; 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 ; Abnormal serum enzyme level, unspecified R74.9 ; Elevated liver enzymes R74.8 and Tobacco abuse Z72.[address] [address] Feb, Depression with anxiety F41.8 ; Chronic pain syndrome G89.4 and prison (current) use of 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 Z79.[address] [address] Oct, Bipolar 2 disorder F31.81 ; Depression with anxiety F41.8 ; Elevated liver enzymes R74.8 ; Tobacco abuse Z72.0 ; Chronic pain syndrome G89.4 ; GERD (gastroesophageal reflux disease) K21.9 ; Primary insomnia F51.01 ; Post menopausal syndrome N95.1 and Nausea R11.0 [facility] [address] [address] Aug, [facility] [address] [address] Jun, Chronic cluster headache, not intractable G44.[address] [address] Apr, Primary insomnia F51.01 and Violation of controlled substance agreement Z91.[address] [address] Mar, [address] [address] Feb, [address] [address] Feb, Depression with anxiety F41.8 ; Bipolar 2 disorder F31.81 ; Allergic rhinitis J30.9 ; Tobacco abuse Z72.0 ; Post menopausal syndrome N95.1 ; Chronic pain syndrome G89.4 ; Obesity (BMI 30.0-34.9) E66.9 ; GERD (gastroesophageal reflux disease) K21.9 ; Primary insomnia F51.01 ; Long-term use of high-risk medication Z79.899 and Controlled substance agreement signed Z79.8[id number] [place] [address] Jan, [place] [address] [address] Jan, Chronic pain syndrome G89.4 and Depression with anxiety F41.8 [address] [address] [address] Dec, Chronic pain syndrome G89.4 and Depression with anxiety F41.[address] [address] November, Chronic pain syndrome G89.4 and Depression with anxiety F41.[address] [address] November, Abnormal serum enzyme level, unspecified R74.9 [place] [id number] [place] [address] November, Family history of diabetes mellitus Z83.3 [place] [id number] [place] [address] November, Depression with anxiety F41.8 ; Bipolar 2 disorder F31.81 ; Allergic rhinitis J30.9 ; Nausea R11.0 ; Obesity (BMI 30.0-34.9) E66.9 ; Substance abuse, daily use F19.10 ; Elevated liver enzymes R74.8 ; History of hiatal hernia Z87.19 ; Post menopausal syndrome N95.1 ; Chronic pain syndrome G89.4 and Routine health maintenance Z00.00 [place] [id number] [place] [address] Oct, Chronic pain syndrome G89.4 and Depression with anxiety F41.8 [place] [id number] [place] [address] Oct, Family history of diabetes mellitus Z83.3 [place] [address] [address] Sep, [place] [id number] [place] [address] Sep, Chronic pain syndrome G89.4 and Depression with anxiety F41.8 [facility] [id number] [place] [address] Sep, Depression with anxiety F41.8 [facility] [id number] [place] [address] Aug, Chronic pain syndrome G89.4 [facility] [id number] [place] [address] Aug, Chronic cluster headache, not intractable G44.029 [place] [id number] [place] [address] Aug, Depression with anxiety F41.8 ; Bipolar 2 disorder F31.81 ; Obesity (BMI 35.0-39.9 without comorbidity) E66.01 ; Allergic rhinitis J30.9 ; Substance abuse, daily use F19.10 ; Nausea R11.0 ; Tobacco abuse Z72.0 ; Chronic pain syndrome G89.4 ; Hiatal hernia K44.9 and Post menopausal syndrome N95.1 [place] [address] [address] Aug, [place] [address] [place] [address] Jul, Chronic pain syndrome G89.4 [place] [address] [address] Jul, [place] [id number] [place] [address] Jun, Depression with anxiety F41.8 ; Bipolar 2 disorder F31.81 ; Obesity (BMI 35.0-39.9 without comorbidity) E66.01 ; Post menopausal syndrome N95.1 and Chronic pain syndrome G89.4 [facility] [id number] [place] [address] 17 Jun, 2016 Bronchitis J40 [place] [id number] [place] [address] Jun, [facility] [id number] [place] [address] May, [place] [address] [address] May, Depression with anxiety F41.8 ; Bipolar 2 disorder F31.81 ; Obesity (BMI 35.0-39.9 without comorbidity) E66.01 ; Tobacco abuse Z72.0 and Tobacco abuse counseling Z71.6 [place] [id number] [place] [address] May, [place] [address] [address] Apr, [facility] [id number] [place] [address] Apr, Abrasion, right great toe, initial encounter S90.411A and Local infection of the skin and subcutaneous tissue, unspecified L08.9 [place] [id number] [place] [address] Apr, [place] [address] [address] Mar, Depression with anxiety F41.8 ; Bipolar 2 disorder F31.81 ; Obesity (BMI 35.0-39.9 without comorbidity) E66.01 ; Substance abuse, daily use F19.10 ; Elevated liver enzymes R74.8 ; GERD (gastroesophageal reflux disease) K21.9 and Allergic rhinitis J30.9 [place] [id number] [place] [address] Mar, [place] [address] [address] Mar, [place] [address] [place] [address] Feb, Depression with anxiety F41.8 ; Bipolar 2 disorder F31.81 ; Obesity (BMI 35.0-39.9 without comorbidity) E66.01 ; Substance abuse, daily use F19.10 ; Nausea R11.0 and History of hiatal hernia Z87.19 [place] [id number] [place] [address] Feb, [place] [id number] [place] [address] Feb, Bipolar II disorder F31.81 and Generalized anxiety disorder F41.1 [place] [id number] [place] [address] Jan, [place] [id number] [place] [address] Dec, [place] [id number] [place] [address] Dec, Bipolar II disorder F31.81 ; Nausea R11.0 and History of hiatal hernia Z87.19 [place] [id number] [place] [address] 27 Nov, 2015 Bipolar II disorder F31.81 and Generalized anxiety disorder F41.1 [place] [id number] [place] [address] November, Family history of diabetes mellitus Z83.3 [place] [id number] [place] [address] November, [place] [id number] [place] [address] November, Abnormal serum enzyme level, unspecified R74.9 [address] [place] [address] November, Routine health maintenance Z00.00 ; Depression with anxiety F41.8 ; Obesity (BMI 35.0-39.9 without comorbidity) E66.01 ; Family history of diabetes mellitus Z83.3 ; Bipolar 2 disorder F31.81 ; Allergic rhinitis J30.9 ; Substance abuse, daily use F19.10 ; GERD (gastroesophageal reflux disease) K21.9 ; History of cluster headache Z86.69 and History of hysterectomy Z90.710 [facility] [id number] [address] November, [facility] [id number] [address] November, [facility] [id number] [address] Oct, Routine health maintenance Z00.00 ; Depression with anxiety F41.8 ; Bipolar 2 disorder F31.81 ; Obesity (BMI 35.0-39.9 without comorbidity) E66.01 ; Allergic rhinitis J30.9 ; Family history of diabetes mellitus Z83.3 ; Substance abuse, daily use F19.10 ; GERD (gastroesophageal reflux disease) K21.9 ; History of cluster headache Z86.69 and History of hysterectomy Z90.710 [facility] [address] [facility] [id number] [id number] Sep, Dental examination Z01.20 IMMUNIZATIONS No Known Immunizations SOCIAL HISTORY Never Assessed REASON FOR VISIT Lab (walk-in) PLAN OF CARE VITAL SIGNS MEDICATIONS Unknown Medications RESULTS No Results PROCEDURES Procedure Date Ordered Result Body Site BLOOD FOLIC ACID SERUM Feb 14, 2018 VITAMIN B-12 Feb 14, 2018 ASSAY THYROID STIM HORMONE Feb 14, 2018 COMPLETE CBC W/AUTO DIFF WBC Feb 14, 2018 ASSAY OF VITAMIN D Feb 14, 2018 DRUG TEST PRSMV CHEM ANLYZR Feb 14, 2018 COMPREHEN METABOLIC PANEL Feb 14, 2018 LIPID PANEL Feb 14, 2018 INSTRUCTIONS MEDICATIONS ADMINISTERED No Known Medications [...] attempt was at then was sent to [facility] Hospitalization History C-diff Hospitalization History for bronchitis or pneumonia Hospitalization History for surgeries as well.
--- OUTSIDE RECORDS SUMMARY | 2019-01-18 21:27 | XMS REPORT ---
Author KATIA Ruelas [facility] eClinicalWorks Address Unknown Phone Unavailable Care Team Providers Care Escalator Operator Name Role Phone KATIA MATHEWS CP Unavailable Allergies, Adverse Reactions, Alerts Substance Reaction Event Type iodine/seafood Info Not Available Non Drug Allergy Problems Problem Type Condition Code Onset Dates Condition Status Problem Elevated liver enzymes R74.8 Active Problem Family history of diabetes mellitus Z83.3 Active Problem Substance abuse, daily use F19.10 Active Assessment Local infection of the skin and subcutaneous tissue, unspecified L08.9 Active Assessment Abrasion, right great toe, initial encounter S90.411A Active Problem History of hiatal hernia Z87.19 Active Problem Routine health maintenance Z00.00 Active Problem Nausea R11.0 Active Problem Obesity (BMI 35.0-39.9 without comorbidity) E66.01 Active Problem Allergic rhinitis J30.9 Active Problem Depression with anxiety F41.8 Active Problem Bipolar 2 disorder F31.81 Active Medications Medication Code System Code Instructions Start Date End Date Status Dosage Geodon [facility] 08283849272 80 MG Orally Once a day 1 tablet Protonix [facility] [address]-67 20 mg Orally twice a day December 08, 2015 1 tablets Aspir-Low [facility] [address]-96 81 MG Orally Once a day 1 tablet Ondansetron [facility] [address]-42 4 MG Orally every 8 hrs PRN December 08, 2015 1 tablet on the tongue and allow to dissolve Claritin [facility] [address]-83 10 mg Orally Once a day 1 tablet Effexor XR [facility] [address]-29 150 MG Orally Once a day November 18, 2015 1 capsule with food Xanax [facility] [address]-04 1 MG Orally 4 times a day MUST LAST 4 WEEKS 1 tablet Vicoprofen [facility] [address]-38 7.5-200 MG Orally 4 times a day MUST LAST 4 WEEKS 1 tablet as needed Blood Glucose Test Strip [facility] 0 One Touch Verio 2 times a day November 24, 2015 test blood sugar Bactrim DS [facility] [address]-62 800-160 MG Orally Twice a day Apr 19, 2016 Apr 29, 2016 1 tablet Estradiol [facility] [address]-06 1 MG Orally Once a day November 10, 2015 1 tablet Procedures Procedure Coding System Code Date Office Visit, Est Pt., Level 3 CPT-4 86147 Apr 19, 2016 Vital Signs Date/Time: Apr 19, 2016 Cardiac Monitoring Heart Rate 86 bpm Weight 178 lbs Height 5'1" in BMI 33.63 Index Blood Pressure Diastolic 84 mmHg Blood Pressure Systolic 122 mmHg Results No Known Results Summary Purpose eClinicalWorks Submission
--- OUTSIDE RECORDS SUMMARY | 2019-01-18 21:27 | XMS REPORT ---
Author Author FINKBOGDAN Alfredo Organization [facility] Address [address] [place] [address] Care Team Providers Care Javascript Engineer Name Role Phone BOGDAN FINK Unavailable PROBLEMS Type Condition ICD9-CM Code [id number] Code Onset Dates Condition Status SNOMED Code Problem Post menopausal syndrome N95.1 Active 056763202 Problem Chronic cluster headache, not intractable G44.029 Active 105086783 Problem Chronic pain syndrome G89.4 Active 433405379 Problem Insomnia due to other mental disorder F51.05 Active 38321205 Problem Mental disorder, not otherwise specified F99 Active 44177880 Problem Primary insomnia F51.01 Active 1730377 Problem Obesity (BMI 30.0-34.9) E66.9 Active 604218194593790 Problem Seasonal allergic rhinitis due to pollen J30.1 Active 89779050 Problem GERD (gastroesophageal reflux disease) K21.9 Active 333383150 Problem Elevated liver enzymes R74.8 Active 950148348 Problem Bipolar 2 disorder F31.81 Active 85480356 Problem Depression with anxiety F41.8 Active 748680811 Problem Allergic rhinitis J30.9 Active 81846053 Problem Tobacco abuse Z72.0 Active 146796339 Problem Substance abuse, daily use F19.10 Active 374218450 Problem Tobacco abuse counseling Z71.6 Active 203252808 ALLERGIES Substance Reaction Event Type Date Status iodine/seafood Unknown Non Drug Allergy Feb, Active ENCOUNTERS Encounter Location Date Diagnosis [facility] [address] [facility] [id number] [address] Apr, [facility] [address] [id number] [address] Mar, Bipolar 2 disorder F31.81 ; Insomnia due to other mental disorder F51.05 ; Mental disorder, not otherwise specified F99 and Post menopausal syndrome N95.1 [facility] [id number] [place] [address] Feb, Bipolar 2 disorder F31.81 ; Tobacco abuse counseling Z71.6 and Seasonal allergic rhinitis due to pollen J30.1 [place] [address] [address] Feb, Bipolar 2 disorder F31.81 ; Depression with anxiety F41.8 ; Chronic pain syndrome G89.4 ; prison (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) 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 of 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 Z79.891 ; Abnormal serum enzyme level, unspecified R74.9 ; Elevated liver enzymes R74.8 and Tobacco abuse Z72.[address] [address] Feb, Depression with anxiety F41.8 ; Chronic pain syndrome G89.4 and prison (current) use of 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 Z79.891 [place] [address] [address] Oct, Bipolar 2 disorder F31.81 ; Depression with anxiety F41.8 ; Elevated liver enzymes R74.8 ; Tobacco abuse Z72.0 ; Chronic pain syndrome G89.4 ; GERD (gastroesophageal reflux disease) K21.9 ; Primary insomnia F51.01 ; Post menopausal syndrome N95.1 and Nausea R11.0 [facility] [address] [address] Aug, [facility] [address] [address] Jun, Chronic cluster headache, not intractable G44.[address] [address] Apr, Primary insomnia F51.01 and Violation of controlled substance agreement Z91.14 [place] [address] [address] Mar, [address] [address] Feb, [place] [address] [place] [address] Feb, Depression with anxiety F41.8 ; Bipolar 2 disorder F31.81 ; Allergic rhinitis J30.9 ; Tobacco abuse Z72.0 ; Post menopausal syndrome N95.1 ; Chronic pain syndrome G89.4 ; Obesity (BMI 30.0-34.9) E66.9 ; GERD (gastroesophageal reflux disease) K21.9 ; Primary insomnia F51.01 ; Long-term use of high-risk medication Z79.899 and Controlled substance agreement signed Z79.899 [place] [id number] [place] [address] Jan, [place] [address] [id number] [place] [address] Jan, Chronic pain syndrome G89.4 and Depression with anxiety F41.8 [place] [id number] [place] [address] Dec, Chronic pain syndrome G89.4 and Depression with anxiety F41.8 [place] [id number] [place] [address] November, Chronic pain syndrome G89.4 and Depression with anxiety F41.8 [place] [address] [id number] [place] [address] November, Abnormal serum enzyme level, unspecified R74.9 [place] [id number] [place] [address] November, Family history of diabetes mellitus Z83.3 [place] [id number] [place] [address] November, Depression with anxiety F41.8 ; Bipolar 2 disorder F31.81 ; Allergic rhinitis J30.9 ; Nausea R11.0 ; Obesity (BMI 30.0-34.9) E66.9 ; Substance abuse, daily use F19.10 ; Elevated liver enzymes R74.8 ; History of hiatal hernia Z87.19 ; Post menopausal syndrome N95.1 ; Chronic pain syndrome G89.4 and Routine health maintenance Z00.00 [place] [id number] [place] [address] Oct, Chronic pain syndrome G89.4 and Depression with anxiety F41.8 [facility] [id number] [place] [address] Oct, Family history of diabetes mellitus Z83.3 [place] [address] [address] Sep, [place] [address] [address] Sep, Chronic pain syndrome G89.4 and Depression with anxiety F41.8 [place] [address] [address] Sep, Depression with anxiety F41.8 [place] [address] [address] Aug, Chronic pain syndrome G89.4 [facility] [address] [address] Aug, Chronic cluster headache, not intractable G44.029 [place] [id number] [place] [address] Aug, Depression with anxiety F41.8 ; Bipolar 2 disorder F31.81 ; Obesity (BMI 35.0-39.9 without comorbidity) E66.01 ; Allergic rhinitis J30.9 ; Substance abuse, daily use F19.10 ; Nausea R11.0 ; Tobacco abuse Z72.0 ; Chronic pain syndrome G89.4 ; Hiatal hernia K44.9 and Post menopausal syndrome N95.1 [facility] [id number] [place] [address] Aug, [facility] [id number] [place] [address] 19 Roderick, 2017 Chronic pain syndrome G89.4 [facility] [id number] [place] [address] Jul, [facility] [id number] [place] [address] Jun, Depression with anxiety F41.8 ; Bipolar 2 disorder F31.81 ; Obesity (BMI 35.0-39.9 without comorbidity) E66.01 ; Post menopausal syndrome N95.1 and Chronic pain syndrome G89.4 [facility] [address] [address] Jun, Bronchitis J40 [address] [address] Jun, [place] [address] [address] May, [place] [address] [address] May, Depression with anxiety F41.8 ; Bipolar 2 disorder F31.81 ; Obesity (BMI 35.0-39.9 without comorbidity) E66.01 ; Tobacco abuse Z72.0 and Tobacco abuse counseling Z71.6 [place] [address] [id number] [place] [address] May, [place] [address] [place] [id number] [place] [address] Apr, [facility] [id number] [place] [address] Apr, Abrasion, right great toe, initial encounter S90.411A and Local infection of the skin and subcutaneous tissue, unspecified L08.9 [place] [id number] [place] [address] Apr, [facility] [address] [id number] [place] [address] Mar, Depression with anxiety F41.8 ; Bipolar 2 disorder F31.81 ; Obesity (BMI 35.0-39.9 without comorbidity) E66.01 ; Substance abuse, daily use F19.10 ; Elevated liver enzymes R74.8 ; GERD (gastroesophageal reflux disease) K21.9 and Allergic rhinitis J30.9 [place] [address] [place] [address] Mar, [place] [id number] [place] [address] Mar, [place] [address] [id number] [place] [address] Feb, Depression with anxiety F41.8 ; Bipolar 2 disorder F31.81 ; Obesity (BMI 35.0-39.9 without comorbidity) E66.01 ; Substance abuse, daily use F19.10 ; Nausea R11.0 and History of hiatal hernia Z87.19 [place] [address] [id number] [place] [address] Feb, [place] [address] [id number] [place] [address] Feb, Bipolar II disorder F31.81 and Generalized anxiety disorder F41.1 [place] [address] [id number] [place] [address] Jan, [place] [address] [id number] [place] [address] Dec, [place] [address] [id number] [place] [address] Dec, Bipolar II disorder F31.81 ; Nausea R11.0 and History of hiatal hernia Z87.19 [place] [address] [id number] [place] [address] November, Bipolar II disorder F31.81 and Generalized anxiety disorder F41.1 [place] [address] [id number] [place] [address] November, Family history of diabetes mellitus Z83.3 [place] [address] [address] November, [place] [address] [id number] [place] [address] November, Abnormal serum enzyme level, unspecified R74.9 [place] [address] [id number] [place] [address] November, Routine health maintenance Z00.00 ; Depression with anxiety F41.8 ; Obesity (BMI 35.0-39.9 without comorbidity) E66.01 ; Family history of diabetes mellitus Z83.3 ; Bipolar 2 disorder F31.81 ; Allergic rhinitis J30.9 ; Substance abuse, daily use F19.10 ; GERD (gastroesophageal reflux disease) K21.9 ; History of cluster headache Z86.69 and History of hysterectomy Z90.710 [place] [address] [id number] [place] [address] November, [place] [address] [id number] [place] [address] November, [place] [address] [id number] [place] [address] Oct, Routine health maintenance Z00.00 ; Depression with anxiety F41.8 ; Bipolar 2 disorder F31.81 ; Obesity (BMI 35.0-39.9 without comorbidity) E66.01 ; Allergic rhinitis J30.9 ; Family history of diabetes mellitus Z83.3 ; Substance abuse, daily use F19.10 ; GERD (gastroesophageal reflux disease) K21.9 ; History of cluster headache Z86.69 and History of hysterectomy Z90.710 [facility] [address] [place] [id number] Sep, Dental examination Z01.20 IMMUNIZATIONS No Known Immunizations SOCIAL HISTORY Never Assessed REASON FOR VISIT Bipolar Disorder- sinus congestion since last night- Rhys Hdez RN PLAN OF CARE Activity Details Follow Up 3 Months, prn Reason:CHM/Bipolar VITAL SIGNS Height 61 in 2018-02-28 Weight 181 lbs 2018-02-28 Temperature 98.6 degrees Fahrenheit 2018-02-28 Heart Rate 78 bpm 2018-02-28 Respiratory Rate 22 2018-02-28 BMI 34.20 kg/m2 2018-02-28 Blood pressure systolic 132 mmHg 2018-02-28 Blood pressure diastolic 78 mmHg 2018-02-28 MEDICATIONS Medication Instructions Dosage Frequency Start Date End Date Duration Status Melatonin 10 MG Orally Once a day 1 tablet at bedtime as needed with food 24h Active Claritin 10 mg Orally Once a day 1 tablet 24h 90 days Active Aspir-Low 81 MG Orally Once a day 1 tablet 24h Active Blood Glucose Test Strip one touch ultra mini test blood sugar 12h November, 25 days Active Estradiol 0.5 MG Orally every other day 1 tablet every other day Jun, 90 days Active Folic Acid 1 MG Orally Once a day 1 tablet 24h Active Calcium + D Active Aripiprazole 15 mg Orally Once a day 1 tablet 24h 24 Feb, 2018 30 day(s) Active Effexor XR 150 MG Orally Once a day TAKE ONE CAPSULE BY MOUTH ONCE DAILY WITH FOOD 24h Active Magnesium 250 MG Orally Once a day 1 tablet with a meal 24h Active Fish Oil 1000 MG Orally 2 times a day 1 capsule 12h November, 30 day(s) Active Protonix 40 mg Orally Once a day 1 tablet 24h November, Active Vitamin B Complex - Active RESULTS [...] attempt was at then was sent to [place] Hospitalization History C-diff Hospitalization History for bronchitis or pneumonia Hospitalization History for surgeries as well.
[2019-01-18 21:28] LABS: BASOPHILS % (AUTO) 0 % (0-10); EOSINOPHILS # (AUTO) 0.3 10^3/uL (0.0-0.3); EOSINOPHILS % (AUTO) 3 % (0-10); HEMATOCRIT 41 % (35-52); HEMOGLOBIN 13.9 G/DL (11.5-16.0); LYMPHOCYTES # (AUTO) 4.1 X 10^3 (1.0-4.0); LYMPHOCYTES % (AUTO) 42 % (12-44); MEAN CORPUSCULAR HEMOGLOBIN 29 PG (25-34); MEAN CORPUSCULAR HGB CONC 34 G/DL (32-36); MEAN CORPUSCULAR VOLUME 85 FL (80-99); MEAN PLATELET VOLUME 10.3 FL (7.4-10.4); MONOCYTES # (AUTO) 0.6 X 10^3 (0.0-1.0); MONOCYTES % (AUTO) 6 % (0-12); NEUTROPHILS # (AUTO) 4.8 X 10^3 (1.8-7.8); NEUTROPHILS % (AUTO) 49 % (42-75); PLATELET COUNT 324 10^3/uL (130-400); RED CELL DISTRIBUTION WIDTH 12.7 % (10.0-14.5); WHITE BLOOD COUNT 9.8 10^3/uL (4.3-11.0)
--- OUTSIDE RECORDS SUMMARY | 2019-01-18 21:28 | XMS REPORT ---
Author Author FINKBOGDAN Alfredo Organization [facility] Address [address] [place] [address] Care Team Providers Care Arborist Name Role Phone BOGDAN FINK Unavailable PROBLEMS Type Condition ICD9-CM Code [id number] Code Onset Dates Condition Status SNOMED Code Problem Tobacco abuse Z72.0 Active 386784288 Problem Post menopausal syndrome N95.1 Active 393750259 Problem Tobacco abuse counseling Z71.6 Active 680976325 Problem Seasonal allergic rhinitis due to pollen J30.1 Active 63955555 Problem GERD (gastroesophageal reflux disease) K21.9 Active 009991910 Problem Chronic cluster headache, not intractable G44.029 Active 383383374 Problem Chronic pain syndrome G89.4 Active 117232770 Problem Primary insomnia F51.01 Active 8285904 Problem Obesity (BMI 30.0-34.9) E66.9 Active 922758637891334 Problem Allergic rhinitis J30.9 Active 37791550 Problem Substance abuse, daily use F19.10 Active 079187405 Problem Bipolar 2 disorder F31.81 Active 85463305 Problem Elevated liver enzymes R74.8 Active 084138281 Problem Depression with anxiety F41.8 Active 124933384 ALLERGIES No Information ENCOUNTERS Encounter Location Date Diagnosis [facility] [id number], [place] [address] Mar, [facility] [address] [place] [address] Feb, Bipolar 2 disorder F31.81 ; Tobacco abuse counseling Z71.6 and Seasonal allergic rhinitis due to pollen J30.1 [facility] [address] [id number], [place] [address] Feb, Bipolar 2 disorder F31.81 ; Depression with anxiety F41.8 ; Chronic pain syndrome G89.4 ; 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 ; Abnormal serum enzyme level, unspecified R74.9 ; Elevated liver enzymes R74.8 and Tobacco abuse Z72.[address] [address] Feb, Depression with anxiety F41.8 ; Chronic pain syndrome G89.4 and snf (current) use of 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 Z79.[address] [address] Oct, Bipolar 2 disorder F31.81 ; Depression with anxiety F41.8 ; Elevated liver enzymes R74.8 ; Tobacco abuse Z72.0 ; Chronic pain syndrome G89.4 ; GERD (gastroesophageal reflux disease) K21.9 ; Primary insomnia F51.01 ; Post menopausal syndrome N95.1 and Nausea R11.0 [facility] [address] [address] Aug, [facility] [address] [address] Jun, Chronic cluster headache, not intractable G44.[address] [address] Apr, Primary insomnia F51.01 and Violation of controlled substance agreement Z91.[address] [address] Mar, [address] [address] Feb, [address] [address] Feb, Depression with anxiety F41.8 ; Bipolar 2 disorder F31.81 ; Allergic rhinitis J30.9 ; Tobacco abuse Z72.0 ; Post menopausal syndrome N95.1 ; Chronic pain syndrome G89.4 ; Obesity (BMI 30.0-34.9) E66.9 ; GERD (gastroesophageal reflux disease) K21.9 ; Primary insomnia F51.01 ; Long-term use of high-risk medication Z79.899 and Controlled substance agreement signed Z79.899 [place] [address] [id number] [place] [address] Jan, [place] [address] [address] Jan, Chronic pain syndrome G89.4 and Depression with anxiety F41.8 [place] [address] [address] Dec, Chronic pain syndrome G89.4 and Depression with anxiety F41.[address] [address] November, Chronic pain syndrome G89.4 and Depression with anxiety F41.[address] [address] November, Abnormal serum enzyme level, unspecified R74.9 [place] [address] [id number] [place] [address] November, Family history of diabetes mellitus Z83.3 [place] [address] [address] [id number] [place] [address] November, Depression with anxiety F41.8 ; Bipolar 2 disorder F31.81 ; Allergic rhinitis J30.9 ; Nausea R11.0 ; Obesity (BMI 30.0-34.9) E66.9 ; Substance abuse, daily use F19.10 ; Elevated liver enzymes R74.8 ; History of hiatal hernia Z87.19 ; Post menopausal syndrome N95.1 ; Chronic pain syndrome G89.4 and Routine health maintenance Z00.00 [place] [address] [place] [address] Oct, Chronic pain syndrome G89.4 and Depression with anxiety F41.8 [place] [address] [place] [address] Oct, Family history of diabetes mellitus Z83.3 [place] [address] [address] Sep, [place] [address] [place] [address] [id number] [place] [address] Sep, Chronic pain syndrome G89.4 and Depression with anxiety F41.8 [facility] [address] [place] [address] Sep, Depression with anxiety F41.8 [facility] [address] [id number] [place] [address] Aug, Chronic pain syndrome G89.4 [facility] [id number] [place] [address] Aug, Chronic cluster headache, not intractable G44.029 [place] [address] [place] [address] [id number] [place] [address] Aug, Depression with anxiety F41.8 ; Bipolar 2 disorder F31.81 ; Obesity (BMI 35.0-39.9 without comorbidity) E66.01 ; Allergic rhinitis J30.9 ; Substance abuse, daily use F19.10 ; Nausea R11.0 ; Tobacco abuse Z72.0 ; Chronic pain syndrome G89.4 ; Hiatal hernia K44.9 and Post menopausal syndrome N95.1 [place] [address], [place] [address] Aug, [place] [address] [place] [address] Jul, Chronic pain syndrome G89.4 [place] [address], [place] [address] Jul, [place] [address] [place] [id number] [place] [address] Jun, Depression with anxiety F41.8 ; Bipolar 2 disorder F31.81 ; Obesity (BMI 35.0-39.9 without comorbidity) E66.01 ; Post menopausal syndrome N95.1 and Chronic pain syndrome G89.4 [facility] [id number] [place] [address] 17 Jun, 2016 Bronchitis J40 [place] [address] [id number] [place] [address] Jun, [facility] [id number] [place] [address] May, [place] [address] [address] May, Depression with anxiety F41.8 ; Bipolar 2 disorder F31.81 ; Obesity (BMI 35.0-39.9 without comorbidity) E66.01 ; Tobacco abuse Z72.0 and Tobacco abuse counseling Z71.6 [place] [address] [id number] [place] [address] May, [place] [address] [address] Apr, [facility] [id number] [place] [address] Apr, Abrasion, right great toe, initial encounter S90.411A and Local infection of the skin and subcutaneous tissue, unspecified L08.9 [place] [address] [id number] [place] [address] Apr, [place] [address] [address] Mar, Depression with anxiety F41.8 ; Bipolar 2 disorder F31.81 ; Obesity (BMI 35.0-39.9 without comorbidity) E66.01 ; Substance abuse, daily use F19.10 ; Elevated liver enzymes R74.8 ; GERD (gastroesophageal reflux disease) K21.9 and Allergic rhinitis J30.9 [place] [address] [id number] [place] [address] Mar, [place] [address] [address] Mar, [place] [address] [place] [address] Feb, Depression with anxiety F41.8 ; Bipolar 2 disorder F31.81 ; Obesity (BMI 35.0-39.9 without comorbidity) E66.01 ; Substance abuse, daily use F19.10 ; Nausea R11.0 and History of hiatal hernia Z87.19 [place] [address] [id number] [place] [address] Feb, [place] [address] [id number] [place] [address] Feb, Bipolar II disorder F31.81 and Generalized anxiety disorder F41.1 [place] [address] [place] [id number] [place] [address] Jan, [place] [address] [id number] [place] [address] Dec, [place] [address] [id number] [place] [address] Dec, Bipolar II disorder F31.81 ; Nausea R11.0 and History of hiatal hernia Z87.19 [place] [address] [id number] [place] [address] 27 Nov, 2015 Bipolar II disorder F31.81 and Generalized anxiety disorder F41.1 [place] [address] [id number] [place] [address] November, Family history of diabetes mellitus Z83.3 [place] [address] [id number] [place] [address] November, [place] [id number] [place] [address] November, Abnormal serum enzyme level, unspecified R74.[address] [place] [address] November, Routine health maintenance Z00.00 ; Depression with anxiety F41.8 ; Obesity (BMI 35.0-39.9 without comorbidity) E66.01 ; Family history of diabetes mellitus Z83.3 ; Bipolar 2 disorder F31.81 ; Allergic rhinitis J30.9 ; Substance abuse, daily use F19.10 ; GERD (gastroesophageal reflux disease) K21.9 ; History of cluster headache Z86.69 and History of hysterectomy Z90.710 [facility] [id number], [place] [address] November, [facility] [id number], [place] [address] November, [facility] [id number], [place] [address] Oct, Routine health maintenance Z00.00 ; Depression with anxiety F41.8 ; Bipolar 2 disorder F31.81 ; Obesity (BMI 35.0-39.9 without comorbidity) E66.01 ; Allergic rhinitis J30.9 ; Family history of diabetes mellitus Z83.3 ; Substance abuse, daily use F19.10 ; GERD (gastroesophageal reflux disease) K21.9 ; History of cluster headache Z86.69 and History of hysterectomy Z90.710 [facility] [address] [facility] [id number] [id number] Sep, Dental examination Z01.20 IMMUNIZATIONS No Known Immunizations SOCIAL HISTORY Never Assessed REASON FOR VISIT LVM PLAN OF CARE VITAL SIGNS MEDICATIONS Unknown [...] attempt was at then was sent to [place] Hospitalization History C-diff Hospitalization History for bronchitis or pneumonia Hospitalization History for surgeries as well.
--- OUTSIDE RECORDS SUMMARY | 2019-01-18 21:28 | XMS REPORT ---
Author Author ALEKSREEDBOGDAN Organization [facility] Address [address] [place] [address] Care Team Providers Care Guard Manager Name Role Phone FINKBOGDAN Alfredo Unavailable PROBLEMS Type Condition ICD9-CM Code LIZ43-JT Code Onset Dates Condition Status SNOMED Code Problem Nausea R11.0 Active 922186342 Problem Tobacco abuse counseling Z71.6 Active 416745143 Problem Tobacco abuse Z72.0 Active 865352636 Problem Primary insomnia F51.01 Active 1481125 Problem GERD (gastroesophageal reflux disease) K21.9 Active 820361309 Problem Chronic pain syndrome G89.4 Active 547482891 Problem Post menopausal syndrome N95.1 Active 104334034 Problem Obesity (BMI 30.0-34.9) E66.9 Active 500269264541985 Problem Chronic cluster headache, not intractable G44.029 Active 391312358 Problem Elevated liver enzymes R74.8 Active 564404445 Problem Family history of diabetes mellitus Z83.3 Active 960545431 Problem Bipolar 2 disorder F31.81 Active 08291997 Problem Depression with anxiety F41.8 Active 742507251 Problem Routine health maintenance Z00.00 Active 140210949 Problem Allergic rhinitis J30.9 Active 22396228 Problem Substance abuse, daily use F19.10 Active 833946595 Problem History of hiatal hernia Z87.19 Active 486824686 ALLERGIES Substance Reaction Event Type Date Status iodine/seafood Unknown Non Drug Allergy Oct, Active ENCOUNTERS Encounter Location Date Diagnosis [facility] [address] [facility] [address] [facility] [id number] [address] Feb, [facility] [address] [facility] [id number] [address] Oct, Bipolar 2 disorder F31.81 ; Depression with anxiety F41.8 ; Elevated liver enzymes R74.8 ; Tobacco abuse Z72.0 ; Chronic pain syndrome G89.4 ; GERD (gastroesophageal reflux disease) K21.9 ; Primary insomnia F51.01 ; Post menopausal syndrome N95.1 and Nausea R11.0 [facility] [id number] [place] [address] Aug, [facility] [address] [address] Jun, Chronic cluster headache, not intractable G44.029 [place] [address] [address] Apr, Primary insomnia F51.01 and Violation of controlled substance agreement Z91.[address] [address] Mar, [place] [address] [address] Feb, [address] [address] Feb, Depression with anxiety F41.8 ; Bipolar 2 disorder F31.81 ; Allergic rhinitis J30.9 ; Tobacco abuse Z72.0 ; Post menopausal syndrome N95.1 ; Chronic pain syndrome G89.4 ; Obesity (BMI 30.0-34.9) E66.9 ; GERD (gastroesophageal reflux disease) K21.9 ; Primary insomnia F51.01 ; Long-term use of high-risk medication Z79.899 and Controlled substance agreement signed Z79.899 [place] [address] [address] [id number] [place] [address] Jan, [place] [id number] [place] [address] Jan, Chronic pain syndrome G89.4 and Depression with anxiety F41.8 [place] [id number] [place] [address] Dec, Chronic pain syndrome G89.4 and Depression with anxiety F41.8 [place] [address] [place] [address] November, Chronic pain syndrome G89.4 and Depression with anxiety F41.8 [place] [address] [address] [id number] [place] [address] November, Abnormal serum enzyme level, unspecified R74.9 [place] [address] [id number] [place] [address] November, Family history of diabetes mellitus Z83.3 [place] [address] [address] [id number] [place] [address] November, Depression with anxiety F41.8 ; Bipolar 2 disorder F31.81 ; Allergic rhinitis J30.9 ; Nausea R11.0 ; Obesity (BMI 30.0-34.9) E66.9 ; Substance abuse, daily use F19.10 ; Elevated liver enzymes R74.8 ; History of hiatal hernia Z87.19 ; Post menopausal syndrome N95.1 ; Chronic pain syndrome G89.4 and Routine health maintenance Z00.00 [place] [address] [address] [id number] [place] [address] Oct, Chronic pain syndrome G89.4 and Depression with anxiety F41.8 [place] [address] [address] [id number] [place] [address] Oct, Family history of diabetes mellitus Z83.3 [place] [id number] [place] [address] Sep, [place] [address] [place] [id number] [place] [address] Sep, Chronic pain syndrome G89.4 and Depression with anxiety F41.8 [place] [address] [id number] [place] [address] Sep, Depression with anxiety F41.8 [place] [address] [place] [address] Aug, Chronic pain syndrome G89.4 [facility] [id number] [place] [address] 09 Aug, 2016 Chronic cluster headache, not intractable G44.029 [place] [address] [address] [id number] [place] [address] 03 Aug, 2016 Depression with anxiety F41.8 ; Bipolar 2 disorder F31.81 ; Obesity (BMI 35.0-39.9 without comorbidity) E66.01 ; Allergic rhinitis J30.9 ; Substance abuse, daily use F19.10 ; Nausea R11.0 ; Tobacco abuse Z72.0 ; Chronic pain syndrome G89.4 ; Hiatal hernia K44.9 and Post menopausal syndrome N95.1 [place] [address] [address] Aug, [place] [address] [address] Jul, Chronic pain syndrome G89.4 [place] [address] [address] Jul, [place] [address] [place] [id number] [place] [address] Jun, Depression with anxiety F41.8 ; Bipolar 2 disorder F31.81 ; Obesity (BMI 35.0-39.9 without comorbidity) E66.01 ; Post menopausal syndrome N95.1 and Chronic pain syndrome G89.4 [facility] [address] [id number] [place] [address] Jun, Bronchitis J40 [place] [address] [place] [id number] [place] [address] Jun, [place] [address] [address] May, [place] [address] [place] [id number] [place] [address] May, Depression with anxiety F41.8 ; Bipolar 2 disorder F31.81 ; Obesity (BMI 35.0-39.9 without comorbidity) E66.01 ; Tobacco abuse Z72.0 and Tobacco abuse counseling Z71.6 [facility] [id number] [place] [address] May, [facility] [address] [id number] [place] [address] Apr, [facility] [id number] [place] [address] Apr, Abrasion, right great toe, initial encounter S90.411A and Local infection of the skin and subcutaneous tissue, unspecified L08.9 [place] [address] [place] [id number] [place] [address] Apr, [place] [address] [place] [id number] [place] [address] Mar, Depression with anxiety F41.8 ; Bipolar 2 disorder F31.81 ; Obesity (BMI 35.0-39.9 without comorbidity) E66.01 ; Substance abuse, daily use F19.10 ; Elevated liver enzymes R74.8 ; GERD (gastroesophageal reflux disease) K21.9 and Allergic rhinitis J30.9 [place] [address] [place] [id number] [place] [address] Mar, [place] [address] [place] [id number] [place] [address] Mar, [place] [address] [place] [id number] [place] [address] Feb, Depression with anxiety F41.8 ; Bipolar 2 disorder F31.81 ; Obesity (BMI 35.0-39.9 without comorbidity) E66.01 ; Substance abuse, daily use F19.10 ; Nausea R11.0 and History of hiatal hernia Z87.19 [facility] [address] [place] [id number] [place] [address] Feb, [place] [address] [place] [id number] [place] [address] Feb, Bipolar II disorder F31.81 and Generalized anxiety disorder F41.1 [place] [address] [place] [id number] [place] [address] Jan, [place] [address] [place] [id number] [place] [address] Dec, [place] [address] [place] [address] [id number] [place] [address] Dec, Bipolar II disorder F31.81 ; Nausea R11.0 and History of hiatal hernia Z87.19 [place] [address] [place] [id number] [place] [address] November, Bipolar II disorder F31.81 and Generalized anxiety disorder F41.1 [place] [address] [place] [id number] [place] [address] November, Family history of diabetes mellitus Z83.3 [place] [id number] [place] [address] November, [place] [address] [place] [id number] [place] [address] November, Abnormal serum enzyme level, unspecified R74.9 [place] [address] [place] [id number] [place] [address] November, Routine health maintenance Z00.00 ; Depression with anxiety F41.8 ; Obesity (BMI 35.0-39.9 without comorbidity) E66.01 ; Family history of diabetes mellitus Z83.3 ; Bipolar 2 disorder F31.81 ; Allergic rhinitis J30.9 ; Substance abuse, daily use F19.10 ; GERD (gastroesophageal reflux disease) K21.9 ; History of cluster headache Z86.69 and History of hysterectomy Z90.710 [place] [address] [place] [id number] [place] [address] November, [place] [address] [place] [id number] [place] [address] November, [place] [address] [id number] [address] Oct, Routine health maintenance Z00.00 ; Depression with anxiety F41.8 ; Bipolar 2 disorder F31.81 ; Obesity (BMI 35.0-39.9 without comorbidity) E66.01 ; Allergic rhinitis J30.9 ; Family history of diabetes mellitus Z83.3 ; Substance abuse, daily use F19.10 ; GERD (gastroesophageal reflux disease) K21.9 ; History of cluster headache Z86.69 and History of hysterectomy Z90.710 [facility] [address] [facility] [id number] [id number] Sep, Dental examination Z01.20 IMMUNIZATIONS No Known Immunizations SOCIAL HISTORY Never Assessed REASON FOR VISIT Depression follow up, pt states she was just do to see provider-[facility] PLAN OF CARE Activity Details Follow Up 3 Months, prn Reason:CHM/Bipolar VITAL SIGNS Height 61 in 2017-10-17 Weight 185.4 lbs 2017-10-17 Temperature 97.2 degrees Fahrenheit 2017-10-17 Heart Rate 84 bpm 2017-10-17 Respiratory Rate 20 2017-10-17 BMI 35.03 kg/m2 2017-10-17 Blood pressure systolic 116 mmHg 2017-10-17 Blood pressure diastolic 68 mmHg 2017-10-17 MEDICATIONS Medication Instructions Dosage Frequency Start Date End Date Duration Status Estradiol 0.5 MG Orally every other day 1 tablet every other day Jun, 90 days Active Calcium + D Active Melatonin 10 MG Orally Once a day 1 tablet at bedtime as needed with food 24h Active Aspir-Low 81 MG Orally Once a day 1 tablet 24h Active Blood Glucose Test Strip one touch ultra mini test blood sugar 12h November, 25 days Active Fish Oil 1000 MG Orally 2 times a day 1 capsule 12h November, 30 day(s) Active Seroquel 50 mg Orally Once a day at bedtime 1 tablet Oct, 30 day(s) Active Promethazine HCl 12.5 MG Orally every 12 hrs 1 tablet as needed 12h Oct, Oct, 10 days Active Ondansetron 4 MG Orally every 8 hours, PRN DISSOLVE ONE TABLET BY MOUTH EVERY 8 HOURS NEEDED 20 Active Protonix 40 mg Orally Once a day 1 tablet 24h November, Active Claritin 10 mg Orally Once a day 1 tablet 24h 90 days Active Multivitamin Women - Active Effexor XR 150 MG Orally Once a day TAKE ONE CAPSULE BY MOUTH ONCE DAILY WITH FOOD 24h Active RESULTS No Results PROCEDURES No Known [...] attempt was at then was sent to [place] Hospitalization History C-diff Hospitalization History for bronchitis or pneumonia Hospitalization History for surgeries as well.
[2019-01-18] MEDS ORDERED: fentaNYL INJECTION 100 MCG/2 ML AMP IVP ONE ×2 (21:30→22:00)
[2019-01-18] MEDS ORDERED: KETOROLAC 30 MG/ML VIAL IVP ONE (21:30)
--- OUTSIDE RECORDS SUMMARY | 2019-01-18 21:31 | XMS REPORT ---
Author Author ALEKS BOGDAN Organization [facility] [place] Address [address] [place] [address] Care Team Providers Care Manager Traffic Name Role Phone FINKBOGDAN Alfredo Unavailable PROBLEMS Type Condition ICD9-CM Code OFK35-VN Code Onset Dates Condition Status SNOMED Code Problem Nausea R11.0 Active 884974788 Problem Tobacco abuse counseling Z71.6 Active 313802070 Problem Tobacco abuse Z72.0 Active 269328519 Problem Primary insomnia F51.01 Active 7277964 Problem GERD (gastroesophageal reflux disease) K21.9 Active 800449646 Problem Chronic pain syndrome G89.4 Active 062516735 Problem Post menopausal syndrome N95.1 Active 956308260 Problem Obesity (BMI 30.0-34.9) E66.9 Active 998028957082721 Problem Chronic cluster headache, not intractable G44.029 Active 146742164 Problem Elevated liver enzymes R74.8 Active 151707594 Problem Family history of diabetes mellitus Z83.3 Active 662153540 Problem Bipolar 2 disorder F31.81 Active 46433687 Problem Depression with anxiety F41.8 Active 722601344 Problem Routine health maintenance Z00.00 Active 498400480 Problem Allergic rhinitis J30.9 Active 48295672 Problem Substance abuse, daily use F19.10 Active 502949029 Problem History of hiatal hernia Z87.19 Active 049677823 ALLERGIES No Information ENCOUNTERS Encounter Location Date Diagnosis [facility] [place] [address] [facility] [id number] [address] Oct, [facility] [address] [address] 06 Aug, 2017 [facility] [address] [id number] [address] Jun, Chronic cluster headache, not intractable G44.029 [place] [address] [address] Apr, Primary insomnia F51.01 and Violation of controlled substance agreement Z91.14 [place] [address] [place] [id number] [place] [address] Mar, [place] [address] [place] [id number] [place] [address] Feb, [place] [address] [place] [id number] [place] [address] Feb, Depression with anxiety F41.8 ; Bipolar 2 disorder F31.81 ; Allergic rhinitis J30.9 ; Tobacco abuse Z72.0 ; Post menopausal syndrome N95.1 ; Chronic pain syndrome G89.4 ; Obesity (BMI 30.0-34.9) E66.9 ; GERD (gastroesophageal reflux disease) K21.9 ; Primary insomnia F51.01 ; Long-term use of high-risk medication Z79.899 and Controlled substance agreement signed Z79.899 [place] [address] [place] [address] Jan, [place] [id number] [place] [address] Jan, Chronic pain syndrome G89.4 and Depression with anxiety F41.8 [place] [address] [place] [id number] [address] Dec, Chronic pain syndrome G89.4 and Depression with anxiety F41.8 [place] [address] [place] [address] November, Chronic pain syndrome G89.4 and Depression with anxiety F41.8 [place] [address] [place] [id number] [place] [address] November, Abnormal serum enzyme level, unspecified R74.9 [place] [address] [address] November, Family history of diabetes mellitus Z83.3 [place] [address] [place] [address] 04 Nov, 2016 Depression with anxiety F41.8 ; Bipolar 2 disorder F31.81 ; Allergic rhinitis J30.9 ; Nausea R11.0 ; Obesity (BMI 30.0-34.9) E66.9 ; Substance abuse, daily use F19.10 ; Elevated liver enzymes R74.8 ; History of hiatal hernia Z87.19 ; Post menopausal syndrome N95.1 ; Chronic pain syndrome G89.4 and Routine health maintenance Z00.00 [place] [address] [address] Oct, Chronic pain syndrome G89.4 and Depression with anxiety F41.8 [place] [address] [place] [id number] [place] [address] Oct, Family history of diabetes mellitus Z83.3 [place] [address] [address] Sep, [place] [address] [address] Sep, Chronic pain syndrome G89.4 and Depression with anxiety F41.8 [place] [address] [place] [id number] [place] [address] Sep, Depression with anxiety F41.8 [place] [address] [place] [id number] [place] [address] Aug, Chronic pain syndrome G89.4 [facility] [address] [place] [id number] [place] [address] Aug, Chronic cluster headache, not intractable G44.029 [place] [address] [place] [id number] [place] [address] 03 Aug, 2016 Depression with anxiety F41.8 ; Bipolar 2 disorder F31.81 ; Obesity (BMI 35.0-39.9 without comorbidity) E66.01 ; Allergic rhinitis J30.9 ; Substance abuse, daily use F19.10 ; Nausea R11.0 ; Tobacco abuse Z72.0 ; Chronic pain syndrome G89.4 ; Hiatal hernia K44.9 and Post menopausal syndrome N95.1 [place] [address] [address] Aug, [place] [address] [address] Jul, Chronic pain syndrome G89.4 [place] [address] [address] Jul, [place] [address] [address] Jun, Depression with anxiety F41.8 ; Bipolar 2 disorder F31.81 ; Obesity (BMI 35.0-39.9 without comorbidity) E66.01 ; Post menopausal syndrome N95.1 and Chronic pain syndrome G89.4 [facility] [address] [address] Jun, Bronchitis J40 [place] [address] [address] Jun, [place] [address] [address] May, [place] [address] [place] [id number] [place] [address] 08 May, 2016 Depression with anxiety F41.8 ; Bipolar 2 disorder F31.81 ; Obesity (BMI 35.0-39.9 without comorbidity) E66.01 ; Tobacco abuse Z72.0 and Tobacco abuse counseling Z71.6 [place] [address] [place] [id number] [place] [address] May, [place] [address] [address] Apr, [facility] [address] [address] Apr, Abrasion, right great toe, initial encounter S90.411A and Local infection of the skin and subcutaneous tissue, unspecified L08.9 [place] [address] [address] Apr, [place] [address] [place] [id number] [place] [address] Mar, Depression with anxiety F41.8 ; Bipolar 2 disorder F31.81 ; Obesity (BMI 35.0-39.9 without comorbidity) E66.01 ; Substance abuse, daily use F19.10 ; Elevated liver enzymes R74.8 ; GERD (gastroesophageal reflux disease) K21.9 and Allergic rhinitis J30.9 [place] [address] [address] Mar, [place] [address] [address] Mar, [place] [address] [address] Feb, Depression with anxiety F41.8 ; Bipolar 2 disorder F31.81 ; Obesity (BMI 35.0-39.9 without comorbidity) E66.01 ; Substance abuse, daily use F19.10 ; Nausea R11.0 and History of hiatal hernia Z87.19 [place] [address] [place] [id number] [place] [address] Feb, [place] [address] [address] Feb, Bipolar II disorder F31.81 and Generalized anxiety disorder F41.1 [place] [address] [place] [id number] [place] [address] Jan, [place] [address] [address] Dec, [place] [address] [place] [id number] [place] [address] Dec, Bipolar II disorder F31.81 ; Nausea R11.0 and History of hiatal hernia Z87.19 [place] [address] [place] [id number] [place] [address] 27 Nov, 2015 Bipolar II disorder F31.81 and Generalized anxiety disorder F41.1 [place] [address] [place] [id number] [place] [address] November, Family history of diabetes mellitus Z83.3 [place] [address] [address] November, [place] [address] [address] November, Abnormal serum enzyme level, unspecified R74.9 [place] [address] [place] [id number] [place] [address] November, Routine health maintenance Z00.00 ; Depression with anxiety F41.8 ; Obesity (BMI 35.0-39.9 without comorbidity) E66.01 ; Family history of diabetes mellitus Z83.3 ; Bipolar 2 disorder F31.81 ; Allergic rhinitis J30.9 ; Substance abuse, daily use F19.10 ; GERD (gastroesophageal reflux disease) K21.9 ; History of cluster headache Z86.69 and History of hysterectomy Z90.710 [place] [address] [place] [address] November, [place] [address] [place] [id number] [place] [address] November, [place] [id number] [place] [address] Oct, Routine health maintenance Z00.00 ; Depression with anxiety F41.8 ; Bipolar 2 disorder F31.81 ; Obesity (BMI 35.0-39.9 without comorbidity) E66.01 ; Allergic rhinitis J30.9 ; Family history of diabetes mellitus Z83.3 ; Substance abuse, daily use F19.10 ; GERD (gastroesophageal reflux disease) K21.9 ; History of cluster headache Z86.69 and History of hysterectomy Z90.710 [place] [address] [facility] [id number] [id number] Sep, Dental examination Z01.20 IMMUNIZATIONS No Known Immunizations SOCIAL HISTORY Never Assessed REASON FOR VISIT Controlled Med Refill PLAN OF CARE VITAL SIGNS MEDICATIONS Medication Instructions Dosage Frequency Start Date End Date Duration Status Xanax 1 MG Orally 4 times a day MUST LAST 4 WEEKS 1 tablet 28 days Active Hydrocodone-Acetaminophen 7.5-325 MG Orally every 6 hrs 1 tablet as needed 6h Dec, 28 days Active RESULTS No Results PROCEDURES [...] attempt was at then was sent to [place] Hospitalization History C-diff Hospitalization History for bronchitis or pneumonia Hospitalization History for surgeries as well.
--- OUTSIDE RECORDS SUMMARY | 2019-01-18 21:31 | XMS REPORT ---
Author Author ALEKS BOGDAN Organization [facility] Address [address] [place] [address] Care Team Providers Care Driver Retraining Instructor Name Role Phone FINKBOGDAN Alfredo Unavailable PROBLEMS Type Condition ICD9-CM Code [id number] Code Onset Dates Condition Status SNOMED Code Problem Nausea R11.0 Active 874957581 Problem Tobacco abuse Z72.0 Active 454554609 Problem Tobacco abuse counseling Z71.6 Active 083119502 Problem GERD (gastroesophageal reflux disease) K21.9 Active 994138135 Problem Primary insomnia F51.01 Active 0337613 Problem Post menopausal syndrome N95.1 Active 507894808 Problem Chronic pain syndrome G89.4 Active 225142150 Problem Obesity (BMI 30.0-34.9) E66.9 Active 668562534237085 Problem Chronic cluster headache, not intractable G44.029 Active 886528266 Problem Elevated liver enzymes R74.8 Active 297972980 Problem Substance abuse, daily use F19.10 Active 744532019 Problem Bipolar 2 disorder F31.81 Active 02137995 Problem Depression with anxiety F41.8 Active 258279271 Problem Family history of diabetes mellitus Z83.3 Active 442317936 Problem Routine health maintenance Z00.00 Active 545254830 Problem Allergic rhinitis J30.9 Active 87498195 Problem History of hiatal hernia Z87.19 Active 906530176 ALLERGIES Substance Reaction Event Type Date Status iodine/seafood Unknown Non Drug Allergy Jun, Active SOCIAL HISTORY No smoking Hx information available PLAN OF CARE Activity Details Follow Up 4 Weeks Reason:CHM VITAL SIGNS Height 5'1" in 2016-06-26 Weight 170.0 lbs 2016-06-26 Temperature 98.9 degrees Fahrenheit 2016-06-26 Heart Rate 88 bpm 2016-06-26 Respiratory Rate 20 2016-06-26 BMI 32.12 kg/m2 2016-06-26 Blood pressure systolic 114 mmHg 2016-06-26 Blood pressure diastolic 76 mmHg 2016-06-26 MEDICATIONS Medication Instructions Dosage Frequency Start Date End Date Duration Status Xanax 1 MG Orally 4 times a day MUST LAST 4 WEEKS 1 tablet Active Aspir-Low 81 MG Orally Once a day 1 tablet 24h Active Blood Glucose Test Strip One Touch Verio test blood sugar 12h November, Active Ondansetron 4 MG DISSOLVE ONE TABLET BY MOUTH EVERY 8 HOURS NEEDED 20 Active Hydrocodone-Acetaminophen 7.5-325 MG Orally every 6 hrs 1 tablet as needed 6h Jul, 28 days Active Effexor XR 150 MG Orally Once a day 1 capsule with food 24h November, Active Claritin 10 mg Orally Once a day 1 tablet 24h Active PredniSONE 20 MG Orally Once a day 1 tablet 24h Jun, Jul, 30 day(s) Active Amoxicillin 500 MG Orally every 12 hrs 1 capsule 12h Jun, Jun, 10 day(s) Active Estradiol 0.5 MG Orally Once a day 1 tablet every other day 24h Jun, Active Protonix 20 mg Orally twice a day 1 tablets 12h Dec, Active Promethazine-Codeine 6.25-10 MG/5ML Orally every 6 hrs 5 ml as needed 6h Jun, Active Geodon 80 MG Orally Once a day 1 tablet 24h 30 Active RESULTS No Results PROCEDURES Procedure Date Ordered Related Diagnosis Body Site Office Visit, Est Pt., Level 4 Jun 26, 2016 IMMUNIZATIONS No Known Immunizations
--- OUTSIDE RECORDS SUMMARY | 2019-01-18 21:31 | XMS REPORT ---
Author Author BOGDAN FINK Organization [facility] [place] Address [address] [place] [address] Care Team Providers Care Yield Loss Inspector Name Role Phone ALEKS BOGDAN Unavailable PROBLEMS Type Condition ICD9-CM Code [id number] Code Onset Dates Condition Status SNOMED Code Problem Nausea R11.0 Active 929868522 Problem Tobacco abuse counseling Z71.6 Active 265948493 Problem Tobacco abuse Z72.0 Active 973849001 Problem Primary insomnia F51.01 Active 6124676 Problem GERD (gastroesophageal reflux disease) K21.9 Active 329356350 Problem Chronic pain syndrome G89.4 Active 148359722 Problem Post menopausal syndrome N95.1 Active 984932400 Problem Obesity (BMI 30.0-34.9) E66.9 Active 736194856305260 Problem Chronic cluster headache, not intractable G44.029 Active 722442093 Problem Elevated liver enzymes R74.8 Active 306732436 Problem Family history of diabetes mellitus Z83.3 Active 493168344 Problem Bipolar 2 disorder F31.81 Active 28008243 Problem Depression with anxiety F41.8 Active 689699211 Problem Routine health maintenance Z00.00 Active 818163742 Problem Allergic rhinitis J30.9 Active 68345150 Problem Substance abuse, daily use F19.10 Active 540605973 Problem History of hiatal hernia Z87.19 Active 046915453 ALLERGIES No Information SOCIAL HISTORY Never Assessed PLAN OF CARE VITAL SIGNS MEDICATIONS Medication Instructions Dosage Frequency Start Date End Date Duration Status Hydrocodone-Acetaminophen 7.5-325 MG Orally every 6 hrs 1 tablet as needed 6h Sep, 28 days Active RESULTS No Results PROCEDURES [...] attempt was at then was sent to [place] Hospitalization History C-diff Hospitalization History for bronchitis or pneumonia Hospitalization History for surgeries as well.
--- OUTSIDE RECORDS SUMMARY | 2019-01-18 21:31 | XMS REPORT ---
Author Author BOGDAN FINK Organization [employer] Address Unknown Phone Unavailable Care Team Providers Care Flask Maker Name Role Phone BOGDAN FINK CP Unavailable Allergies, Adverse Reactions, Alerts Substance [...] Active Problem Bipolar 2 disorder F31.81 Active Assessment Allergic rhinitis J30.9 Active Assessment Substance abuse, daily use F19.10 Active Assessment Obesity (BMI 35.0-39.9 without comorbidity) E66.01 Active Assessment GERD (gastroesophageal reflux disease) K21.9 Active Assessment Bipolar 2 disorder F31.81 Active Assessment Elevated liver enzymes R74.8 Active Assessment Depression with anxiety F41.8 Active Medications Medication Code System Code Instructions Start Date End Date Status Dosage Claritin [facility] [address]-34 10 mg Orally Once a day 1 tablet Aspir-Low [facility] [address]-72 81 MG Orally Once a day 1 tablet Vicoprofen [facility] [address]-16 7.5-200 MG Orally 4 times a day MUST LAST 4 WEEKS 1 tablet as needed Effexor XR [facility] [address]-54 150 MG Orally Once a day November 18, 2015 1 capsule with food Protonix [facility] [address]-85 20 mg Orally twice a day December 08, 2015 1 tablets Ondansetron [facility] [address]-50 4 MG Orally every 8 hrs PRN December 08, 2015 1 tablet on the tongue and allow to dissolve Geodon [facility] 77436433447 80 MG Orally Once a day 1 tablet Blood Glucose Test Strip [facility] 0 One Touch Verio 2 times a day November 24, 2015 test blood sugar Xanax [facility] [address]-99 1 MG Orally 4 times a day MUST LAST 4 WEEKS 1 tablet Estradiol [facility] [address]-59 1 MG Orally Once a day November 10, 2015 1 tablet Procedures Procedure Coding System Code Date Office Visit, Est Pt., Level 3 CPT-4 02101 Apr 05, 2016 Vital Signs Date/Time: Apr 05, 2016 Cardiac Monitoring Heart Rate 90 bpm Weight 183 lbs Height 5'1" in BMI 34.57 Index Blood Pressure Diastolic 70 mmHg Blood Pressure Systolic 100 mmHg Results No Known Results Summary Purpose [employer] Submission
--- OUTSIDE RECORDS SUMMARY | 2019-01-18 21:32 | XMS REPORT ---
Author Author BOGDAN FINK Organization [employer] Address Unknown Phone Unavailable Care Team Providers Care Ready To Wear Department Manager Name Role Phone BOGDAN FINK CP Unavailable [...] Start Date End Date Status Dosage Vicoprofen [facility] [address]-32 7.5-200 MG Orally 4 times a day MUST LAST 4 WEEKS May 17, 2016 1 tablet as needed Results No Known Results Summary Purpose [employer] Submission
--- OUTSIDE RECORDS SUMMARY | 2019-01-18 21:32 | XMS REPORT ---
Author Author BOGDAN FINK Organization [employer] Address Unknown Phone Unavailable Care Team Providers Care Children'S Service Supervisor Name Role Phone BOGDAN FINK CP Unavailable [...] Date Status Dosage Vicoprofen [facility] [address]-62 7.5-200 MG Orally 4 times a day MUST LAST 4 WEEKS 1 tablet as needed Results No Known Results Summary Purpose [employer] Submission
--- OUTSIDE RECORDS SUMMARY | 2019-01-18 21:32 | XMS REPORT ---
Author Author BOGDAN FINK Organization [facility] Address [address] [place] [address] Care Team Providers Care Territory Development Manager Name Role Phone ALEKS BOGDAN Unavailable PROBLEMS Type Condition ICD9-CM Code [id number] Code Onset Dates Condition Status SNOMED Code Problem Substance abuse, daily use F19.10 Active 495682498 Problem Allergic rhinitis J30.9 Active 24116878 Problem Family history of diabetes mellitus Z83.3 Active 807318602 Problem Elevated liver enzymes R74.8 Active 551324805 Problem Nausea R11.0 Active 503654861 Problem History of hiatal hernia Z87.19 Active 245493972 Problem Bipolar 2 disorder F31.81 Active 26306080 Problem Obesity (BMI 35.0-39.9 without comorbidity) E66.01 Active 872154499 Problem Routine health maintenance Z00.00 Active 228537645 Problem Depression with anxiety F41.8 Active 402346287 ALLERGIES Unknown Allergies SOCIAL HISTORY No smoking Hx information available PLAN OF CARE VITAL SIGNS MEDICATIONS Medication Instructions Dosage Frequency Start Date End Date Duration Status Vicoprofen 7.5-200 MG Orally 4 times a day MUST LAST 4 WEEKS 1 tablet as needed Active RESULTS No Results PROCEDURES No Known procedures IMMUNIZATIONS No Known Immunizations
--- OUTSIDE RECORDS SUMMARY | 2019-01-18 21:32 | XMS REPORT ---
Author Author BOGDAN FINK Organization [facility] Address [address] [place] [address] Care Team Providers Care Mining Helper Name Role Phone FINKBOGDAN Alfredo Unavailable PROBLEMS Type Condition ICD9-CM Code ZYK26-LD Code Onset Dates Condition Status SNOMED Code Problem Nausea R11.0 Active 880144459 Problem Tobacco abuse counseling Z71.6 Active 871412755 Problem Tobacco abuse Z72.0 Active 141675926 Problem Primary insomnia F51.01 Active 2614872 Problem GERD (gastroesophageal reflux disease) K21.9 Active 651071914 Problem Chronic pain syndrome G89.4 Active 210014252 Problem Post menopausal syndrome N95.1 Active 359903108 Problem Obesity (BMI 30.0-34.9) E66.9 Active 610079215783983 Problem Chronic cluster headache, not intractable G44.029 Active 059985988 Problem Elevated liver enzymes R74.8 Active 588911992 Problem Family history of diabetes mellitus Z83.3 Active 388890322 Problem Bipolar 2 disorder F31.81 Active 16460832 Problem Depression with anxiety F41.8 Active 074890272 Problem Routine health maintenance Z00.00 Active 220553732 Problem Allergic rhinitis J30.9 Active 00483305 Problem Substance abuse, daily use F19.10 Active 671892492 Problem History of hiatal hernia Z87.19 Active 409914639 ALLERGIES Unknown Allergies SOCIAL HISTORY No smoking Hx information available PLAN OF CARE VITAL SIGNS MEDICATIONS Medication Instructions Dosage Frequency Start Date End Date Duration Status Xanax 1 MG Orally 4 times a day MUST LAST 4 WEEKS 1 tablet 28 days Active RESULTS No Results PROCEDURES No Known procedures IMMUNIZATIONS No Known Immunizations
--- OUTSIDE RECORDS SUMMARY | 2019-01-18 21:32 | XMS REPORT ---
Author Author BOGDAN FINK Organization [employer] Address Unknown Phone Unavailable Care Team Providers Care Senior Systems Analyst Name Role Phone BOGDAN FINK CP Unavailable Allergies, Adverse Reactions, Alerts Substance Reaction Event Type iodine/seafood Info Not Available Non Drug Allergy Problems Problem Type Condition Code Onset Dates Condition Status Assessment Bipolar 2 disorder F31.81 Active Assessment Routine health maintenance Z00.00 Active Assessment Depression with anxiety F41.8 Active Problem Depression with anxiety F41.8 Active Problem Bipolar 2 disorder F31.81 Active Problem Routine health maintenance Z00.00 Active Problem Family history of diabetes mellitus Z83.3 Active Problem Substance abuse, daily use F19.10 Active Problem Obesity (BMI 35.0-39.9 without comorbidity) E66.01 Active Problem Allergic rhinitis J30.9 Active Assessment History of hysterectomy Z90.710 Active Assessment Substance abuse, daily use F19.10 Active Assessment Family history of diabetes mellitus Z83.3 Active Assessment History of cluster headache Z86.69 Active Assessment Allergic rhinitis J30.9 Active Assessment GERD (gastroesophageal reflux disease) K21.9 Active Assessment Obesity (BMI 35.0-39.9 without comorbidity) E66.01 Active Medications Medication Code System Code Instructions Start Date End Date Status Dosage lipitor NDC 0 20 mg Oral Once a day 1 tablet protonix NDC 0 Oral 1 tab Estradiol [facility] [address]-75 0.1 MG Transdermal once weekly 1 patch to skin Xanax [facility] [address]-26 1 MG Orally 4 times a day 1 tablet Vicoprofen [facility] [address]-40 7.5-200 MG Orally 4 times a day 1 tablet as needed Effexor NDC 0 100 MG by oral route Once a day 1 tablet Geodon [facility] [address]-79 80 MG Orally Once a day 1 tablet Claritin [facility] [address]-38 10 mg Orally Once a day 1 tablet Protonix [facility] [address]-39 20 mg Orally Once a day November 04, 2015 1 tablet Procedures Procedure Coding System Code Date No Charge CPT-4 22294 November 04, 2015 DRUG SCREEN NON TLC DEVICES CPT-4 71113 November 04, 2015 Office Visit, New Pt., Level 3 CPT-4 90517 November 04, 2015 Vital Signs Date/Time: November 04, 2015 Temperature 98.2 F Weight 174.4 lbs Height 5'1" in BMI 32.95 Index Blood Pressure Diastolic 86 mmHg Blood Pressure Systolic 130 mmHg Cardiac Monitoring Heart Rate 80 bpm Results Name Result Date Reference Range Unit Abnormality Flag URINE DRUG SCREEN (IN HOUSE) ----MDMA negative 20151104 ----TCA negative 20151104 ----BENZO POSITIVE [id number] ----OPIATE negative 20151104 ----THC negative 20151104 ----MTD negative 20151104 ----AMPH negative 20151104 ----BAR negative 20151104 ----PCP negative 20151104 ----MAMP negative 20151104 ----OXY negative 20151104 ----Lot # [id number] ----Exp date [id number] ----Control + [id number] ----COCAINE negative [id number] Summary Purpose [employer] Submission
--- OUTSIDE RECORDS SUMMARY | 2019-01-18 21:32 | XMS REPORT ---
Author Author KATIA MATHEWS Organization [facility] Address [address] [place] [address] Care Team Providers Care Building Energy Consultant Name Role Phone KATIA MATHEWS Unavailable PROBLEMS Type Condition ICD9-CM Code FLM31-LF Code Onset Dates Condition Status SNOMED Code Problem Nausea R11.0 Active 122564645 Problem Tobacco abuse counseling Z71.6 Active 721536421 Problem Tobacco abuse Z72.0 Active 028096539 Problem Primary insomnia F51.01 Active 4237646 Problem GERD (gastroesophageal reflux disease) K21.9 Active 021461757 Problem Chronic pain syndrome G89.4 Active 215850365 Problem Post menopausal syndrome N95.1 Active 965891013 Problem Obesity (BMI 30.0-34.9) E66.9 Active 838799578062731 Problem Chronic cluster headache, not intractable G44.029 Active 163165598 Problem Elevated liver enzymes R74.8 Active 036477873 Problem Family history of diabetes mellitus Z83.3 Active 854895359 Problem Bipolar 2 disorder F31.81 Active 12732806 Problem Depression with anxiety F41.8 Active 953702292 Problem Routine health maintenance Z00.00 Active 109491156 Problem Allergic rhinitis J30.9 Active 81549737 Problem Substance abuse, daily use F19.10 Active 270071093 Problem History of hiatal hernia Z87.19 Active 771547640 ALLERGIES Substance Reaction Event Type Date Status iodine/seafood Unknown Non Drug Allergy Aug, Active SOCIAL HISTORY Never Assessed PLAN OF CARE Activity Details Follow Up prn Reason: VITAL SIGNS Height 5'1" in 2016-08-16 Weight 168.0 lbs 2016-08-16 Temperature 97.6 degrees Fahrenheit 2016-08-16 Heart Rate 72 bpm 2016-08-16 Respiratory Rate 18 2016-08-16 BMI 31.74 kg/m2 2016-08-16 Blood pressure systolic 128 mmHg 2016-08-16 Blood pressure diastolic 72 mmHg 2016-08-16 MEDICATIONS Medication Instructions Dosage Frequency Start Date End Date Duration Status Aspir-Low 81 MG Orally Once a day 1 tablet 24h Active Ondansetron 4 MG DISSOLVE ONE TABLET BY MOUTH EVERY 8 HOURS NEEDED Active Protonix 20 mg Orally twice a day 1 tablets 12h Dec, Active Xanax 1 MG Orally 4 times a day MUST LAST 4 WEEKS 1 tablet Active Effexor XR 150 MG Orally Once a day 1 capsule with food 24h November, Active Claritin 10 mg Orally Once a day 1 tablet 24h Active Hydrocodone-Acetaminophen 7.5-325 MG Orally every 6 hrs 1 tablet as needed 6h Active Blood Glucose Test Strip One Touch Verio test blood sugar 12h November, Active Geodon 80 MG TAKE ONE TABLET BY MOUTH ONCE DAILY Active Estradiol 0.5 MG Orally Once a day 1 tablet every other day 24h Jun, Active RESULTS No Results PROCEDURES Procedure Date Ordered Result Body Site TORADOL (IM) 60 MG/2ML (UP TO 15 MG) Aug 16, 2016 THER/PROPH/DIAG INJ, SC/IM Aug 16, 2016 IMMUNIZATIONS Vaccine Route Administration Date Status TORADOL (IM) 60 MG/2ML (UP TO 15 MG) IM Intramuscular Aug 16, 2016 Administered MEDICAL (GENERAL) HISTORY Type Description Date Medical [...] attempt was at then was sent to [place] Hospitalization History C-diff Hospitalization History for bronchitis or pneumonia Hospitalization History for surgeries as well.
--- OUTSIDE RECORDS SUMMARY | 2019-01-18 21:32 | XMS REPORT ---
Author Author ALEKS BOGDAN Organization [facility] Address [address] [place] [address] Care Team Providers Care Millstone Cleaner Name Role Phone FINKBOGDAN Alfredo Unavailable PROBLEMS Type Condition ICD9-CM Code QQB29-NP Code Onset Dates Condition Status SNOMED Code Problem Nausea R11.0 Active 736503861 Problem Tobacco abuse counseling Z71.6 Active 696666639 Problem Tobacco abuse Z72.0 Active 296690221 Problem Primary insomnia F51.01 Active 5015764 Problem GERD (gastroesophageal reflux disease) K21.9 Active 492070523 Problem Chronic pain syndrome G89.4 Active 091149706 Problem Post menopausal syndrome N95.1 Active 570252835 Problem Obesity (BMI 30.0-34.9) E66.9 Active 156169542501645 Problem Chronic cluster headache, not intractable G44.029 Active 680246807 Problem Elevated liver enzymes R74.8 Active 741384964 Problem Family history of diabetes mellitus Z83.3 Active 575498534 Problem Bipolar 2 disorder F31.81 Active 85662132 Problem Depression with anxiety F41.8 Active 876377056 Problem Routine health maintenance Z00.00 Active 088986307 Problem Allergic rhinitis J30.9 Active 96105673 Problem Substance abuse, daily use F19.10 Active 432085570 Problem History of hiatal hernia Z87.19 Active 466406565 ALLERGIES No Information ENCOUNTERS Encounter Location Date Diagnosis [facility] [address] [facility] [id number] [address] Oct, [facility] [address], [place] [address] 06 Aug, 2017 [facility] [id number], [place] [address] Jun, Chronic cluster headache, not intractable G44.029 [facility] [address], [place] [address] Apr, Primary insomnia F51.01 and Violation of controlled substance agreement Z91.14 [place] [address] [place] [id number] [place] [address] Mar, [place] [address] [id number] [place] [address] Feb, [place] [address] [place] [address] [id number] [place] [address] Feb, Depression with anxiety F41.8 ; Bipolar 2 disorder F31.81 ; Allergic rhinitis J30.9 ; Tobacco abuse Z72.0 ; Post menopausal syndrome N95.1 ; Chronic pain syndrome G89.4 ; Obesity (BMI 30.0-34.9) E66.9 ; GERD (gastroesophageal reflux disease) K21.9 ; Primary insomnia F51.01 ; Long-term use of high-risk medication Z79.899 and Controlled substance agreement signed Z79.899 [place] [address] [place] [address] Jan, [place] [id number] [place] [address] Jan, Chronic pain syndrome G89.4 and Depression with anxiety F41.8 [place] [address] [address] Dec, Chronic pain syndrome G89.4 and Depression with anxiety F41.8 [place] [address] [place] [address] November, Chronic pain syndrome G89.4 and Depression with anxiety F41.8 [place] [address] [place] [address] [id number] [place] [address] November, Abnormal serum enzyme level, unspecified R74.9 [place] [address], [place] [address] November, Family history of diabetes mellitus Z83.3 [place] [address] [place] [address] 04 Nov, 2016 Depression with anxiety F41.8 ; Bipolar 2 disorder F31.81 ; Allergic rhinitis J30.9 ; Nausea R11.0 ; Obesity (BMI 30.0-34.9) E66.9 ; Substance abuse, daily use F19.10 ; Elevated liver enzymes R74.8 ; History of hiatal hernia Z87.19 ; Post menopausal syndrome N95.1 ; Chronic pain syndrome G89.4 and Routine health maintenance Z00.00 [place] [address] [address] Oct, Chronic pain syndrome G89.4 and Depression with anxiety F41.8 [place] [address] [place] [address] [id number] [place] [address] Oct, Family history of diabetes mellitus Z83.3 [place] [address] [address] Sep, [place] [address] [address] Sep, Chronic pain syndrome G89.4 and Depression with anxiety F41.8 [place] [address] [place] [address] [id number] [place] [address] Sep, Depression with anxiety F41.8 [place] [address] [address] [id number] [place] [address] Aug, Chronic pain syndrome G89.4 [facility] [id number] [place] [address] Aug, Chronic cluster headache, not intractable G44.029 [place] [address] [id number] [place] [address] 03 Aug, 2016 Depression with anxiety F41.8 ; Bipolar 2 disorder F31.81 ; Obesity (BMI 35.0-39.9 without comorbidity) E66.01 ; Allergic rhinitis J30.9 ; Substance abuse, daily use F19.10 ; Nausea R11.0 ; Tobacco abuse Z72.0 ; Chronic pain syndrome G89.4 ; Hiatal hernia K44.9 and Post menopausal syndrome N95.1 [place] [address] [address] Aug, [place] [address] [address] Jul, Chronic pain syndrome G89.4 [place] [address] [address] Jul, [place] [address] [address] Jun, Depression with anxiety F41.8 ; Bipolar 2 disorder F31.81 ; Obesity (BMI 35.0-39.9 without comorbidity) E66.01 ; Post menopausal syndrome N95.1 and Chronic pain syndrome G89.4 [facility] [address] [address] Jun, Bronchitis J40 [place] [address] [address] Jun, [place] [address] [address] May, [place] [address] [place] [address] [id number] [place] [address] 08 May, 2016 Depression with anxiety F41.8 ; Bipolar 2 disorder F31.81 ; Obesity (BMI 35.0-39.9 without comorbidity) E66.01 ; Tobacco abuse Z72.0 and Tobacco abuse counseling Z71.6 [place] [address] [address] [id number] [place] [address] May, [place] [address] [address] Apr, [facility] [address] [address] Apr, Abrasion, right great toe, initial encounter S90.411A and Local infection of the skin and subcutaneous tissue, unspecified L08.9 [place] [address] [address] Apr, [place] [address] [place] [address] [id number] [place] [address] Mar, Depression with anxiety F41.8 ; Bipolar 2 disorder F31.81 ; Obesity (BMI 35.0-39.9 without comorbidity) E66.01 ; Substance abuse, daily use F19.10 ; Elevated liver enzymes R74.8 ; GERD (gastroesophageal reflux disease) K21.9 and Allergic rhinitis J30.9 [place] [address] [address] Mar, [place] [address] [address] Mar, [place] [address] [address] Feb, Depression with anxiety F41.8 ; Bipolar 2 disorder F31.81 ; Obesity (BMI 35.0-39.9 without comorbidity) E66.01 ; Substance abuse, daily use F19.10 ; Nausea R11.0 and History of hiatal hernia Z87.19 [place] [address] [address] [id number] [place] [address] Feb, [place] [address] [address] Feb, Bipolar II disorder F31.81 and Generalized anxiety disorder F41.1 [place] [id number] [place] [address] Jan, [place] [address] [address] Dec, [place] [address] [address] [id number] [place] [address] Dec, Bipolar II disorder F31.81 ; Nausea R11.0 and History of hiatal hernia Z87.19 [place] [address] [place] [address] [id number] [place] [address] 27 Nov, 2015 Bipolar II disorder F31.81 and Generalized anxiety disorder F41.1 [place] [address] [address] [id number] [place] [address] November, Family history of diabetes mellitus Z83.3 [place] [address] [address] November, [place] [address] [address] November, Abnormal serum enzyme level, unspecified R74.9 [place] [address] [id number] [place] [address] November, Routine health maintenance Z00.00 ; Depression with anxiety F41.8 ; Obesity (BMI 35.0-39.9 without comorbidity) E66.01 ; Family history of diabetes mellitus Z83.3 ; Bipolar 2 disorder F31.81 ; Allergic rhinitis J30.9 ; Substance abuse, daily use F19.10 ; GERD (gastroesophageal reflux disease) K21.9 ; History of cluster headache Z86.69 and History of hysterectomy Z90.710 [place] [address] [place] [address] November, [place] [address] [address] [id number] [place] [address] November, [place] [id number] [place] [address] Oct, Routine health maintenance Z00.00 ; Depression with anxiety F41.8 ; Bipolar 2 disorder F31.81 ; Obesity (BMI 35.0-39.9 without comorbidity) E66.01 ; Allergic rhinitis J30.9 ; Family history of diabetes mellitus Z83.3 ; Substance abuse, daily use F19.10 ; GERD (gastroesophageal reflux disease) K21.9 ; History of cluster headache Z86.69 and History of hysterectomy Z90.710 [place] [address] [facility] [id number] [place] [id number] Sep, Dental examination Z01.20 IMMUNIZATIONS No Known Immunizations SOCIAL HISTORY Never Assessed REASON FOR VISIT Medication refill request PLAN OF CARE VITAL SIGNS MEDICATIONS Medication Instructions Dosage Frequency Start Date End Date Duration Status Ondansetron 4 MG Orally every 8 hours, PRN DISSOLVE ONE TABLET BY MOUTH EVERY 8 HOURS NEEDED 20 Active RESULTS No Results PROCEDURES No Known [...] attempt was at then was sent to [facility] Hospitalization History C-diff Hospitalization History for bronchitis or pneumonia Hospitalization History for surgeries as well.
--- OUTSIDE RECORDS SUMMARY | 2019-01-18 21:32 | XMS REPORT ---
Author Author BOGDAN FINK Organization [employer] Address Unknown Phone Unavailable Care Team Providers Care Sprinkler Fitter Apprentice Name Role Phone BOGDAN FINK CP Unavailable [...] Problem Bipolar 2 disorder F31.81 Active Assessment Substance abuse, daily use F19.10 Active Assessment Obesity (BMI 35.0-39.9 without comorbidity) E66.01 Active Assessment History of hiatal hernia Z87.19 Active Assessment Bipolar 2 disorder F31.81 Active Assessment Nausea R11.0 Active Assessment Depression with anxiety F41.8 Active Medications Medication Code System Code Instructions Start Date End Date Status Dosage Effexor XR [facility] [address]-96 150 MG Orally Once a day November 18, 2015 1 capsule with food Ondansetron [facility] [address]-80 4 MG Orally every 8 hrs PRN December 08, 2015 1 tablet on the tongue and allow to dissolve Geodon [facility] [address]-08 80 MG Orally Once a day 1 tablet Aspir-Low [facility] [address]-49 81 MG Orally Once a day 1 tablet Protonix [facility] [address]-10 20 mg Orally twice a day December 08, 2015 1 tablets Claritin [facility] [address]-56 10 mg Orally Once a day 1 tablet Vicoprofen [facility] [address]-61 7.5-200 MG Orally 4 times a day MUST LAST 4 WEEKS 1 tablet as needed Xanax [facility] [address]-63 1 MG Orally 4 times a day MUST LAST 4 WEEKS 1 tablet Blood Glucose Test Strip [facility] 0 One Touch Verio 2 times a day November 24, 2015 test blood sugar Estradiol [facility] [address]-71 1 MG Orally Once a day November 10, 2015 1 tablet Procedures Procedure Coding System Code Date Office Visit, Est Pt., Level 3 CPT-4 25606 Feb 10, 2016 Vital Signs Date/Time: Feb 10, 2016 Cardiac Monitoring Heart Rate 70 bpm Weight 171.0 lbs Height 5'1" in BMI 32.31 Index Blood Pressure Diastolic 70 mmHg Blood Pressure Systolic 126 mmHg Results No Known Results Summary Purpose [employer] Submission
--- OUTSIDE RECORDS SUMMARY | 2019-01-18 21:33 | XMS REPORT ---
Author Author BOGDAN FINK Organization [employer] Address Unknown Phone Unavailable Care Team Providers Care Cinetechnician Name Role Phone BOGDAN FINK CP Unavailable Allergies, Adverse Reactions, Alerts Substance Reaction Event Type iodine/seafood Info Not Available Non Drug Allergy Problems Problem Type Condition Code Onset Dates Condition Status Problem Family history of diabetes mellitus Z83.3 Active Problem Obesity (BMI 35.0-39.9 without comorbidity) E66.01 Active Problem Allergic rhinitis J30.9 Active Problem Tobacco abuse counseling Z71.6 Active Problem Nausea R11.0 Active Problem Tobacco abuse Z72.0 Active Problem Depression with anxiety F41.8 Active Problem Bipolar 2 disorder F31.81 Active Problem History of hiatal hernia Z87.19 Active Problem Routine health maintenance Z00.00 Active Assessment Tobacco abuse counseling Z71.6 Active Assessment Bipolar 2 disorder F31.81 Active Assessment Depression with anxiety F41.8 Active Assessment Tobacco abuse Z72.0 Active Problem Elevated liver enzymes R74.8 Active Assessment Obesity (BMI 35.0-39.9 without comorbidity) E66.01 Active Problem Substance abuse, daily use F19.10 Active Medications Medication Code System Code Instructions Start Date End Date Status Dosage Chantix [facility] [address]-80 1 MG Orally Twice a day May 15, 2016 Jun 14, 2016 take 1/2 tab days 1-3, then 1/2 tablet bid day 4-7 then one tablet daily Protonix [facility] [address]-35 20 mg Orally twice a day December 08, 2015 1 tablets Vicoprofen [facility] [address]-24 7.5-200 MG Orally 4 times a day MUST LAST 4 WEEKS May 17, 2016 1 tablet as needed Aspir-Low [facility] [address]-68 81 MG Orally Once a day 1 tablet Estradiol [facility] [address]-14 1 MG Orally Once a day November 10, 2015 1 tablet Geodon [facility] 10988257728 80 MG Orally Once a day 1 tablet Ondansetron [facility] [address]-75 4 MG Orally every 8 hrs PRN December 08, 2015 1 tablet on the tongue and allow to dissolve Xanax [facility] [address]-58 1 MG Orally 4 times a day MUST LAST 4 WEEKS 1 tablet Blood Glucose Test Strip [facility] 0 One Touch Verio 2 times a day November 24, 2015 test blood sugar Effexor XR [facility] [address]-42 150 MG Orally Once a day November 18, 2015 1 capsule with food Claritin [facility] [address]-28 10 mg Orally Once a day 1 tablet Procedures Procedure Coding System Code Date Office Visit, Est Pt., Level 3 CPT-4 10474 May 15, 2016 Vital Signs Date/Time: May 15, 2016 Cardiac Monitoring Heart Rate 84 bpm Weight 173.2 lbs Height 5'1" in BMI 32.72 Index Blood Pressure Diastolic 83 mmHg Blood Pressure Systolic 127 mmHg Results No Known Results Summary Purpose [employer] Submission
--- OUTSIDE RECORDS SUMMARY | 2019-01-18 21:33 | XMS REPORT ---
Author Author BOGDAN FINK Organization [facility] Address [address] [place] [address] Care Team Providers Care Community Administrator Name Role Phone ALEKS BOGDAN Unavailable PROBLEMS Type Condition ICD9-CM Code FEW40-QE Code Onset Dates Condition Status SNOMED Code Problem Nausea R11.0 Active 257126489 Problem Tobacco abuse counseling Z71.6 Active 796342622 Problem Tobacco abuse Z72.0 Active 101128538 Problem Primary insomnia F51.01 Active 4932439 Problem GERD (gastroesophageal reflux disease) K21.9 Active 459013131 Problem Chronic pain syndrome G89.4 Active 468679754 Problem Post menopausal syndrome N95.1 Active 638104084 Problem Obesity (BMI 30.0-34.9) E66.9 Active 120432617123862 Problem Chronic cluster headache, not intractable G44.029 Active 818994657 Problem Elevated liver enzymes R74.8 Active 594547580 Problem Family history of diabetes mellitus Z83.3 Active 971119377 Problem Bipolar 2 disorder F31.81 Active 31536417 Problem Depression with anxiety F41.8 Active 626441374 Problem Routine health maintenance Z00.00 Active 838680400 Problem Allergic rhinitis J30.9 Active 43386114 Problem Substance abuse, daily use F19.10 Active 847351169 Problem History of hiatal hernia Z87.19 Active 958646881 ALLERGIES No Information SOCIAL HISTORY Never Assessed PLAN OF CARE VITAL SIGNS MEDICATIONS Medication Instructions Dosage Frequency Start Date End Date Duration Status Fish Oil 1000 MG Orally 2 times a day 1 capsule 12h November, 30 day(s) Active RESULTS No Results PROCEDURES No Known [...]
--- OUTSIDE RECORDS SUMMARY | 2019-01-18 21:33 | XMS REPORT ---
Author Author BOGDAN FINK Organization [facility] Address [address] [place] [address] Care Team Providers Care Patternmaker Metal Bench Name Role Phone FINKREED AlfredoELE Unavailable PROBLEMS Type Condition ICD9-CM Code CYK17-QL Code Onset Dates Condition Status SNOMED Code Problem Nausea R11.0 Active 843239947 Problem Tobacco abuse counseling Z71.6 Active 481508825 Problem Tobacco abuse Z72.0 Active 253724718 Problem Primary insomnia F51.01 Active 1132411 Problem GERD (gastroesophageal reflux disease) K21.9 Active 846149553 Problem Chronic pain syndrome G89.4 Active 345668346 Problem Post menopausal syndrome N95.1 Active 643516444 Problem Obesity (BMI 30.0-34.9) E66.9 Active 078975040712717 Problem Chronic cluster headache, not intractable G44.029 Active 364149190 Problem Elevated liver enzymes R74.8 Active 851057514 Problem Family history of diabetes mellitus Z83.3 Active 583154684 Problem Bipolar 2 disorder F31.81 Active 18340888 Problem Depression with anxiety F41.8 Active 593059267 Problem Routine health maintenance Z00.00 Active 823886414 Problem Allergic rhinitis J30.9 Active 29007535 Problem Substance abuse, daily use F19.10 Active 254639823 Problem History of hiatal hernia Z87.19 Active 220747252 ALLERGIES Substance Reaction Event Type Date Status iodine/seafood Unknown Non Drug Allergy Jun, Active ENCOUNTERS Encounter Location Date Diagnosis [facility] [address] [facility] [id number] [address] Oct, Bipolar 2 disorder F31.81 ; Depression with anxiety F41.8 ; Elevated liver enzymes R74.8 ; Tobacco abuse Z72.0 ; Chronic pain syndrome G89.4 ; GERD (gastroesophageal reflux disease) K21.9 ; Primary insomnia F51.01 ; Post menopausal syndrome N95.1 and Nausea R11.0 [facility] [id number] [place] [address] Aug, [facility] [id number] [place] [address] Jun, Chronic cluster headache, not intractable G44.029 [place] [id number] [place] [address] Apr, Primary insomnia F51.01 and Violation of controlled substance agreement Z91.14 [place] [id number] [place] [address] Mar, [place] [id number] [place] [address] Feb, [place] [id number] [place] [address] Feb, Depression with anxiety F41.8 ; Bipolar 2 disorder F31.81 ; Allergic rhinitis J30.9 ; Tobacco abuse Z72.0 ; Post menopausal syndrome N95.1 ; Chronic pain syndrome G89.4 ; Obesity (BMI 30.0-34.9) E66.9 ; GERD (gastroesophageal reflux disease) K21.9 ; Primary insomnia F51.01 ; Long-term use of high-risk medication Z79.899 and Controlled substance agreement signed Z79.899 [place] [id number] [place] [address] Jan, [place] [id number] [place] [phone] Jan, Chronic pain syndrome G89.4 and Depression with anxiety F41.8 [facility] [id number] [place] [phone] Dec, Chronic pain syndrome G89.4 and Depression with anxiety F41.8 [place] [id number] [place] [address] November, Chronic pain syndrome G89.4 and Depression with anxiety F41.8 [place] [id number] [place] [phone] November, Abnormal serum enzyme level, unspecified R74.9 [place] [id number] [place] [address] November, Family history of diabetes mellitus Z83.3 [place] [id number] [place] [address] November, Depression with anxiety F41.8 ; Bipolar 2 disorder F31.81 ; Allergic rhinitis J30.9 ; Nausea R11.0 ; Obesity (BMI 30.0-34.9) E66.9 ; Substance abuse, daily use F19.10 ; Elevated liver enzymes R74.8 ; History of hiatal hernia Z87.19 ; Post menopausal syndrome N95.1 ; Chronic pain syndrome G89.4 and Routine health maintenance Z00.00 [place] [address] [address] Oct, Chronic pain syndrome G89.4 and Depression with anxiety F41.8 [place] [id number] [place] [address] Oct, Family history of diabetes mellitus Z83.3 [place] [id number] [place] [address] Sep, [place] [id number] [place] [address] Sep, Chronic pain syndrome G89.4 and Depression with anxiety F41.8 [place] [id number] [place] [address] Sep, Depression with anxiety F41.8 [place] [id number] [place] [address] Aug, Chronic pain syndrome G89.4 [facility] [id number] [place] [address] Aug, Chronic cluster headache, not intractable G44.029 [facility] [id number] [place] [address] 03 Aug, 2016 Depression with anxiety F41.8 ; Bipolar 2 disorder F31.81 ; Obesity (BMI 35.0-39.9 without comorbidity) E66.01 ; Allergic rhinitis J30.9 ; Substance abuse, daily use F19.10 ; Nausea R11.0 ; Tobacco abuse Z72.0 ; Chronic pain syndrome G89.4 ; Hiatal hernia K44.9 and Post menopausal syndrome N95.1 [place] [id number] [place] [phone] Aug, [place] [address] [address] Jul, Chronic pain syndrome G89.4 [place] [id number] [place] [address] Jul, [place] [address] [address] Jun, Depression with anxiety F41.8 ; Bipolar 2 disorder F31.81 ; Obesity (BMI 35.0-39.9 without comorbidity) E66.01 ; Post menopausal syndrome N95.1 and Chronic pain syndrome G89.4 [facility] [id number] [place] [phone] 17 Jun, 2016 Bronchitis J40 [place] [id number] [place] [phone] 02 Jun, 2016 [place] [id number] [place] [address] May, [address] [address] May, Depression with anxiety F41.8 ; Bipolar 2 disorder F31.81 ; Obesity (BMI 35.0-39.9 without comorbidity) E66.01 ; Tobacco abuse Z72.0 and Tobacco abuse counseling Z71.6 [place] [address] [address] May, [facility] [id number] [place] [address] Apr, [facility] [id number] [place] [address] Apr, Abrasion, right great toe, initial encounter S90.411A and Local infection of the skin and subcutaneous tissue, unspecified L08.9 [facility] [id number] [place] [phone] Apr, [facility] [id number] [place] [address] Mar, Depression with anxiety F41.8 ; Bipolar 2 disorder F31.81 ; Obesity (BMI 35.0-39.9 without comorbidity) E66.01 ; Substance abuse, daily use F19.10 ; Elevated liver enzymes R74.8 ; GERD (gastroesophageal reflux disease) K21.9 and Allergic rhinitis J30.9 [facility] [id number] [place] [phone] Mar, [facility] [id number] [place] [address] Mar, [place] [id number] [place] [phone] Feb, Depression with anxiety F41.8 ; Bipolar 2 disorder F31.81 ; Obesity (BMI 35.0-39.9 without comorbidity) E66.01 ; Substance abuse, daily use F19.10 ; Nausea R11.0 and History of hiatal hernia Z87.19 [place] [id number] [place] [address] Feb, [place] [id number] [place] [address] Feb, Bipolar II disorder F31.81 and Generalized anxiety disorder F41.1 [place] [id number] [place] [address] Jan, [place] [id number] [place] [address] Dec, [place] [address] [address] Dec, Bipolar II disorder F31.81 ; Nausea R11.0 and History of hiatal hernia Z87.19 [place] [address] [address] November, Bipolar II disorder F31.81 and Generalized anxiety disorder F41.1 [place] [address] [address] November, Family history of diabetes mellitus Z83.3 [place] [address] [address] November, [place] [id number] [place] [address] November, Abnormal serum enzyme level, unspecified R74.9 [place] [id number] [place] [address] November, Routine health maintenance Z00.00 ; Depression with anxiety F41.8 ; Obesity (BMI 35.0-39.9 without comorbidity) E66.01 ; Family history of diabetes mellitus Z83.3 ; Bipolar 2 disorder F31.81 ; Allergic rhinitis J30.9 ; Substance abuse, daily use F19.10 ; GERD (gastroesophageal reflux disease) K21.9 ; History of cluster headache Z86.69 and History of hysterectomy Z90.710 [place] [address] [place] [address] November, [place] [id number] [place] [address] November, [place] [id number] [place] [address] Oct, Routine health maintenance Z00.00 ; Depression with anxiety F41.8 ; Bipolar 2 disorder F31.81 ; Obesity (BMI 35.0-39.9 without comorbidity) E66.01 ; Allergic rhinitis J30.9 ; Family history of diabetes mellitus Z83.3 ; Substance abuse, daily use F19.10 ; GERD (gastroesophageal reflux disease) K21.9 ; History of cluster headache Z86.69 and History of hysterectomy Z90.710 [facility] [address] [facility] [id number] [place] [id number] Sep, Dental examination Z01.20 IMMUNIZATIONS Vaccine Route Administration Date Status PHENERGAN (IM) 25 MG (25 MG/ML) IM Intramuscular Jun 17, 2017 Administered TORADOL (IM) 60 MG/2ML (UP TO 15 MG) IM Intramuscular Jun 17, 2017 Administered SOCIAL HISTORY Never Assessed REASON FOR VISIT headache with vomiting x 1 day maría colbert PLAN OF CARE Activity Details Follow Up prn Reason: VITAL SIGNS Height 5'1" in 2017-06-17 Weight 179.4 lbs 2017-06-17 Temperature 98.5 degrees Fahrenheit 2017-06-17 Heart Rate 88 bpm 2017-06-17 Respiratory Rate 20 2017-06-17 BMI 33.89 kg/m2 2017-06-17 Blood pressure systolic 110 mmHg 2017-06-17 Blood pressure diastolic 64 mmHg 2017-06-17 MEDICATIONS Medication Instructions Dosage Frequency Start Date End Date Duration Status Melatonin 10 MG Orally Once a day 1 tablet at bedtime as needed with food 24h Active Fish Oil 1000 MG Orally 2 times a day 1 capsule 12h November, 30 day(s) Active Multivitamin Women - Active Ondansetron 4 MG Orally every 8 hours, PRN DISSOLVE ONE TABLET BY MOUTH EVERY 8 HOURS NEEDED 20 Active Geodon 80 MG Orally Once a day TAKE ONE TABLET BY MOUTH ONCE DAILY 24h 90 days Active Rozerem 8 MG Orally Once a day 1 tablet at bedtime as needed 24h Apr, 30 days Active Aspir-Low 81 MG Orally Once a day 1 tablet 24h Active Estradiol 0.5 MG Orally every other day 1 tablet every other day Jun, 90 days Active Effexor XR 150 MG Orally Once a day TAKE ONE CAPSULE BY MOUTH ONCE DAILY WITH FOOD 24h 90 days Active Blood Glucose Test Strip one touch ultra mini test blood sugar 12h November, 25 days Active Claritin 10 mg Orally Once a day 1 tablet 24h 90 days Active Protonix 40 mg Orally Once a day 1 tablet 24h November, 90 days Active RESULTS No Results PROCEDURES Procedure Date Ordered Result Body Site TORADOL (IM) 60 MG/2ML (UP TO 15 MG) Jun 17, 2017 PHENERGAN (IM) 25 MG (25 MG/ML) Jun 17, 2017 THER/PROPH/DIAG INJ, SC/IM Jun 17, 2017 INSTRUCTIONS MEDICATIONS ADMINISTERED No Known Medications [...] attempt was at then was sent to [facility] Hospitalization History C-diff Hospitalization History for bronchitis or pneumonia Hospitalization History for surgeries as well.
--- OUTSIDE RECORDS SUMMARY | 2019-01-18 21:33 | XMS REPORT ---
Author Author BOGDAN FINK Organization [facility] Address [address] [place] [address] Care Team Providers Care Diagnostic Technologist Name Role Phone BOGDAN FINK Unavailable PROBLEMS Type Condition ICD9-CM Code INE45-FE Code Onset Dates Condition Status SNOMED Code Problem Nausea R11.0 Active 375691664 Problem Tobacco abuse counseling Z71.6 Active 363515222 Problem Tobacco abuse Z72.0 Active 351376257 Problem Primary insomnia F51.01 Active 0645995 Problem GERD (gastroesophageal reflux disease) K21.9 Active 710434270 Problem Chronic pain syndrome G89.4 Active 812043280 Problem Post menopausal syndrome N95.1 Active 370797319 Problem Obesity (BMI 30.0-34.9) E66.9 Active 702965645786829 Problem Chronic cluster headache, not intractable G44.029 Active 025495883 Problem Elevated liver enzymes R74.8 Active 698666359 Problem Family history of diabetes mellitus Z83.3 Active 890379472 Problem Bipolar 2 disorder F31.81 Active 14934325 Problem Depression with anxiety F41.8 Active 499633809 Problem Routine health maintenance Z00.00 Active 590636278 Problem Allergic rhinitis J30.9 Active 06640789 Problem Substance abuse, daily use F19.10 Active 612073527 Problem History of hiatal hernia Z87.19 Active 472144485 ALLERGIES Substance Reaction Event Type Date Status iodine/seafood Unknown Non Drug Allergy Aug, Active SOCIAL HISTORY Never Assessed PLAN OF CARE Activity Details Follow Up 3 Months Reason:[facility]NS Height 5'1" in 2016-08-10 Weight 163.0 lbs 2016-08-10 Temperature 97.8 degrees Fahrenheit 2016-08-10 Heart Rate 70 bpm 2016-08-10 Respiratory Rate 18 2016-08-10 BMI 30.80 kg/m2 2016-08-10 Blood pressure systolic 126 mmHg 2016-08-10 Blood pressure diastolic 78 mmHg 2016-08-10 MEDICATIONS Medication Instructions Dosage Frequency Start Date End Date Duration Status Aspir-Low 81 MG Orally Once a day 1 tablet 24h Active Blood Glucose Test Strip One Touch Verio test blood sugar 12h November, Active Claritin 10 mg Orally Once a day 1 tablet 24h Active Xanax 1 MG Orally 4 times a day MUST LAST 4 WEEKS 1 tablet Active Effexor XR 150 MG Orally Once a day 1 capsule with food 24h November, Active Protonix 20 mg Orally twice a day 1 tablets 12h Dec, Active Ondansetron 4 MG DISSOLVE ONE TABLET BY MOUTH EVERY 8 HOURS NEEDED Active Promethazine-Codeine 6.25-10 MG/5ML Orally every 6 hrs 5 ml as needed 6h Jun, Active Geodon 80 MG TAKE ONE TABLET BY MOUTH ONCE DAILY Active Hydrocodone-Acetaminophen 7.5-325 MG Orally every 6 hrs 1 tablet as needed 6h Active Estradiol 0.5 MG Orally Once a day 1 tablet every other day 24h Jun, Active RESULTS No Results PROCEDURES No Known [...]
--- OUTSIDE RECORDS SUMMARY | 2019-01-18 21:33 | XMS REPORT ---
Author Author BOGDAN FINK Organization [employer] Address Unknown Phone Unavailable Care Team Providers Care Passenger Solicitor Name Role Phone BOGDAN FINK CP Unavailable [...] Problem Bipolar 2 disorder F31.81 Active Medications No Known Medications Results No Known Results Summary Purpose [employer] Submission
--- OUTSIDE RECORDS SUMMARY | 2019-01-18 21:33 | XMS REPORT ---
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 Name Role Phone Sarah DESTINEE Unavailable PROBLEMS Type Condition ICD9-CM Code WSY56-DO Code Onset Dates Condition Status SNOMED Code Problem Nausea R11.0 Active 008746060 Problem Tobacco abuse counseling Z71.6 Active 526198190 Problem Tobacco abuse Z72.0 Active 850581938 Problem Primary insomnia F51.01 Active 9752522 Problem GERD (gastroesophageal reflux disease) K21.9 Active 261283741 Problem Chronic pain syndrome G89.4 Active 039889572 Problem Post menopausal syndrome N95.1 Active 753799070 Problem Obesity (BMI 30.0-34.9) E66.9 Active 708891883463366 Problem Chronic cluster headache, not intractable G44.029 Active 422654732 Problem Elevated liver enzymes R74.8 Active 499876537 Problem Family history of diabetes mellitus Z83.3 Active 283885940 Problem Bipolar 2 disorder F31.81 Active 10314643 Problem Depression with anxiety F41.8 Active 367306622 Problem Routine health maintenance Z00.00 Active 994450156 Problem Allergic rhinitis J30.9 Active 36992220 Problem Substance abuse, daily use F19.10 Active 713883111 Problem History of hiatal hernia Z87.19 Active 408804461 ALLERGIES No Information ENCOUNTERS Encounter Location Date Diagnosis [facility] [id number] [address] Oct, [facility] [address] [address] Aug, [facility] [id number] [address] Jun, Chronic cluster headache, not intractable G44.029 [address] [address] 05 Apr, 2017 Primary insomnia F51.01 and Violation of controlled substance agreement Z91.14 [place] [address] [place] [address] Mar, [place] [id number] [place] [address] Feb, [place] [id number] [place] [address] Feb, Depression with anxiety F41.8 ; Bipolar 2 disorder F31.81 ; Allergic rhinitis J30.9 ; Tobacco abuse Z72.0 ; Post menopausal syndrome N95.1 ; Chronic pain syndrome G89.4 ; Obesity (BMI 30.0-34.9) E66.9 ; GERD (gastroesophageal reflux disease) K21.9 ; Primary insomnia F51.01 ; Long-term use of high-risk medication Z79.899 and Controlled substance agreement signed Z79.899 [address] [address] [place] [address] Jan, [place] [id number] [place] [address] Jan, Chronic pain syndrome G89.4 and Depression with anxiety F41.8 [place] [id number] [place] [address] Dec, Chronic pain syndrome G89.4 and Depression with anxiety F41.8 [place] [address] [place] [address] November, Chronic pain syndrome G89.4 and Depression with anxiety F41.8 [place] [id number] [place] [address] November, Abnormal serum enzyme level, unspecified R74.9 [place] [address] [place] [address] November, Family history of diabetes mellitus Z83.3 [place] [address] [place] [address] November, Depression with anxiety F41.8 ; Bipolar 2 disorder F31.81 ; Allergic rhinitis J30.9 ; Nausea R11.0 ; Obesity (BMI 30.0-34.9) E66.9 ; Substance abuse, daily use F19.10 ; Elevated liver enzymes R74.8 ; History of hiatal hernia Z87.19 ; Post menopausal syndrome N95.1 ; Chronic pain syndrome G89.4 and Routine health maintenance Z00.00 [place] [address] [address] Oct, Chronic pain syndrome G89.4 and Depression with anxiety F41.8 [place] [id number] [place] [address] Oct, Family history of diabetes mellitus Z83.3 [place] [id number] [place] [address] Sep, [place] [id number] [place] [address] Sep, Chronic pain syndrome G89.4 and Depression with anxiety F41.8 [place] [id number] [place] [address] Sep, Depression with anxiety F41.8 [place] [id number] [place] [address] Aug, Chronic pain syndrome G89.4 [facility] [id number] [place] [address] Aug, Chronic cluster headache, not intractable G44.029 [address] [id number] [place] [address] 03 Aug, 2016 Depression with anxiety F41.8 ; Bipolar 2 disorder F31.81 ; Obesity (BMI 35.0-39.9 without comorbidity) E66.01 ; Allergic rhinitis J30.9 ; Substance abuse, daily use F19.10 ; Nausea R11.0 ; Tobacco abuse Z72.0 ; Chronic pain syndrome G89.4 ; Hiatal hernia K44.9 and Post menopausal syndrome N95.1 [address] [address] [address] Aug, [place] [address] [address] Jul, Chronic pain syndrome G89.4 [place] [address] [address] Jul, [place] [address] [address] Jun, Depression with anxiety F41.8 ; Bipolar 2 disorder F31.81 ; Obesity (BMI 35.0-39.9 without comorbidity) E66.01 ; Post menopausal syndrome N95.1 and Chronic pain syndrome G89.4 [facility] [id number] [place] [address] Jun, Bronchitis J40 [place] [address] [address] Jun, [place] [address] [address] May, [place] [id number] [place] [address] 08 May, 2016 Depression with anxiety F41.8 ; Bipolar 2 disorder F31.81 ; Obesity (BMI 35.0-39.9 without comorbidity) E66.01 ; Tobacco abuse Z72.0 and Tobacco abuse counseling Z71.6 [address] [address] [address] May, [place] [id number] [place] [address] 13 Apr, 2016 [facility] [address] [address] Apr, Abrasion, right great toe, initial encounter S90.411A and Local infection of the skin and subcutaneous tissue, unspecified L08.9 [place] [id number] [place] [address] Apr, [place] [address] [address] Mar, Depression with anxiety F41.8 ; Bipolar 2 disorder F31.81 ; Obesity (BMI 35.0-39.9 without comorbidity) E66.01 ; Substance abuse, daily use F19.10 ; Elevated liver enzymes R74.8 ; GERD (gastroesophageal reflux disease) K21.9 and Allergic rhinitis J30.9 [place] [id number] [place] [address] Mar, [address] [address] [address] Mar, [place] [address] [address] Feb, Depression with anxiety F41.8 ; Bipolar 2 disorder F31.81 ; Obesity (BMI 35.0-39.9 without comorbidity) E66.01 ; Substance abuse, daily use F19.10 ; Nausea R11.0 and History of hiatal hernia Z87.19 [place] [id number] [place] [address] Feb, [place] [id number] [place] [address] Feb, Bipolar II disorder F31.81 and Generalized anxiety disorder F41.1 [place] [address] [address] Jan, [place] [id number] [place] [address] Dec, [place] [address] [address] Dec, Bipolar II disorder F31.81 ; Nausea R11.0 and History of hiatal hernia Z87.19 [place] [id number] [place] [address] November, Bipolar II disorder F31.81 and Generalized anxiety disorder F41.1 [place] [id number] [place] [address] November, Family history of diabetes mellitus Z83.3 [place] [address] [address] November, [place] [address] [address] November, Abnormal serum enzyme level, unspecified R74.9 [place] [id number] [place] [address] November, Routine health maintenance Z00.00 ; Depression with anxiety F41.8 ; Obesity (BMI 35.0-39.9 without comorbidity) E66.01 ; Family history of diabetes mellitus Z83.3 ; Bipolar 2 disorder F31.81 ; Allergic rhinitis J30.9 ; Substance abuse, daily use F19.10 ; GERD (gastroesophageal reflux disease) K21.9 ; History of cluster headache Z86.69 and History of hysterectomy Z90.710 [place] [id number] [place] [address] November, [place] [id number] [place] [address] November, [place] [id number] [place] [address] Oct, Routine health maintenance Z00.00 ; Depression with anxiety F41.8 ; Bipolar 2 disorder F31.81 ; Obesity (BMI 35.0-39.9 without comorbidity) E66.01 ; Allergic rhinitis J30.9 ; Family history of diabetes mellitus Z83.3 ; Substance abuse, daily use F19.10 ; GERD (gastroesophageal reflux disease) K21.9 ; History of cluster headache Z86.69 and History of hysterectomy Z90.710 [facility] [address] [facility] [id number] [place] [id number] Sep, Dental examination Z01.20 IMMUNIZATIONS No Known Immunizations SOCIAL HISTORY Never Assessed REASON FOR VISIT Controlled Med Refill 01/25 PLAN OF CARE VITAL SIGNS MEDICATIONS Medication Instructions Dosage Frequency Start Date End Date Duration Status Xanax 1 MG Orally 4 times a day MUST LAST 4 WEEKS 1 tablet 28 days Active Hydrocodone-Acetaminophen 7.5-325 MG Orally every 6 hrs 1 tablet as needed 6h Jan, 28 days Active RESULTS No Results PROCEDURES [...] attempt was at then was sent to [place] Hospitalization History C-diff Hospitalization History for bronchitis or pneumonia Hospitalization History for surgeries as well.
--- OUTSIDE RECORDS SUMMARY | 2019-01-18 21:34 | XMS REPORT ---
Author Author BOGDAN FINK Organization [facility] Address [address] [place] [address] Care Team Providers Care Peoplesoft Consultant Name Role Phone BOGDAN FINK Unavailable PROBLEMS Type Condition ICD9-CM Code [id number]-UA Code Onset Dates Condition Status SNOMED Code Problem Substance abuse, daily use F19.10 Active 182081135 Problem Allergic rhinitis J30.9 Active 71536707 Problem Family history of diabetes mellitus Z83.3 Active 146764546 Problem Elevated liver enzymes R74.8 Active 472808779 Problem Nausea R11.0 Active 769052495 Problem History of hiatal hernia Z87.19 Active 180494817 Problem Bipolar 2 disorder F31.81 Active 88705080 Problem Obesity (BMI 35.0-39.9 without comorbidity) E66.01 Active 667243952 Problem Routine health maintenance Z00.00 Active 919563934 Problem Depression with anxiety F41.8 Active 023190519 ALLERGIES Unknown Allergies SOCIAL HISTORY No smoking Hx information available PLAN OF CARE VITAL SIGNS MEDICATIONS Medication Instructions Dosage Frequency Start Date End Date Duration Status Xanax 1 MG Orally 4 times a day MUST LAST 4 WEEKS 1 tablet Active RESULTS No Results PROCEDURES No Known procedures IMMUNIZATIONS No Known Immunizations
--- OUTSIDE RECORDS SUMMARY | 2019-01-18 21:34 | XMS REPORT ---
Author Author BOGDAN FINK Organization [facility] Address [address] [place] [address] Care Team Providers Care Pump House Technician Name Role Phone FINKREED AlfredoELE Unavailable PROBLEMS Type Condition ICD9-CM Code NMN79-GT Code Onset Dates Condition Status SNOMED Code Problem Nausea R11.0 Active 257852147 Problem Tobacco abuse counseling Z71.6 Active 740358264 Problem Tobacco abuse Z72.0 Active 662321451 Problem Primary insomnia F51.01 Active 2566680 Problem GERD (gastroesophageal reflux disease) K21.9 Active 799303111 Problem Chronic pain syndrome G89.4 Active 520610389 Problem Post menopausal syndrome N95.1 Active 016955742 Problem Obesity (BMI 30.0-34.9) E66.9 Active 113837382027818 Problem Chronic cluster headache, not intractable G44.029 Active 990845619 Problem Elevated liver enzymes R74.8 Active 640652301 Problem Family history of diabetes mellitus Z83.3 Active 199095170 Problem Bipolar 2 disorder F31.81 Active 07644137 Problem Depression with anxiety F41.8 Active 628385988 Problem Routine health maintenance Z00.00 Active 946196621 Problem Allergic rhinitis J30.9 Active 91141836 Problem Substance abuse, daily use F19.10 Active 038656077 Problem History of hiatal hernia Z87.19 Active 484636867 ALLERGIES No Information SOCIAL HISTORY Never Assessed PLAN OF CARE VITAL SIGNS MEDICATIONS Medication Instructions Dosage Frequency Start Date End Date Duration Status Xanax 1 MG Orally 4 times a day MUST LAST 4 WEEKS 1 tablet 28 days Active Hydrocodone-Acetaminophen 7.5-325 MG Orally every 6 hrs 1 tablet as needed 6h November, 28 days Active RESULTS No Results PROCEDURES [...] attempt was at then was sent to [place] Hospitalization History C-diff Hospitalization History for bronchitis or pneumonia Hospitalization History for surgeries as well.
--- OUTSIDE RECORDS SUMMARY | 2019-01-18 21:34 | XMS REPORT ---
Author Author ALEKS BOGDAN Organization [facility] Address [address] [place] [address] Care Team Providers Care Copying Machine Mechanic Name Role Phone FINKBOGDAN Alfredo Unavailable PROBLEMS Type Condition ICD9-CM Code IUB96-VP Code Onset Dates Condition Status SNOMED Code Problem Nausea R11.0 Active 091977028 Problem Tobacco abuse Z72.0 Active 861504097 Problem Tobacco abuse counseling Z71.6 Active 603177953 Problem GERD (gastroesophageal reflux disease) K21.9 Active 743763759 Problem Primary insomnia F51.01 Active 6263913 Problem Post menopausal syndrome N95.1 Active 952156120 Problem Chronic pain syndrome G89.4 Active 211444332 Problem Obesity (BMI 30.0-34.9) E66.9 Active 514218476431949 Problem Chronic cluster headache, not intractable G44.029 Active 191182905 Problem Elevated liver enzymes R74.8 Active 545926650 Problem Substance abuse, daily use F19.10 Active 481315343 Problem Bipolar 2 disorder F31.81 Active 41385227 Problem Depression with anxiety F41.8 Active 910542826 Problem Family history of diabetes mellitus Z83.3 Active 194725862 Problem Routine health maintenance Z00.00 Active 823937536 Problem Allergic rhinitis J30.9 Active 84368588 Problem History of hiatal hernia Z87.19 Active 614644273 ALLERGIES Unknown Allergies SOCIAL HISTORY No smoking Hx information available PLAN OF CARE VITAL SIGNS MEDICATIONS Medication Instructions Dosage Frequency Start Date End Date Duration Status Xanax 1 MG Orally 4 times a day MUST LAST 4 WEEKS 1 tablet 28 days Active RESULTS No Results PROCEDURES No Known procedures IMMUNIZATIONS No Known Immunizations
--- OUTSIDE RECORDS SUMMARY | 2019-01-18 21:34 | XMS REPORT ---
Author Author BOGDAN FINK Organization [facility] Address [address] [place] [address] Care Team Providers Care Sap Technical Developer Name Role Phone ALEKSREEDBOGDAN Unavailable PROBLEMS Type Condition ICD9-CM Code VME83-AP Code Onset Dates Condition Status SNOMED Code Problem Nausea R11.0 Active 183823561 Problem Tobacco abuse counseling Z71.6 Active 737580834 Problem Tobacco abuse Z72.0 Active 314589664 Problem Primary insomnia F51.01 Active 6382556 Problem GERD (gastroesophageal reflux disease) K21.9 Active 654286833 Problem Chronic pain syndrome G89.4 Active 352911304 Problem Post menopausal syndrome N95.1 Active 200972151 Problem Obesity (BMI 30.0-34.9) E66.9 Active 854015954125492 Problem Chronic cluster headache, not intractable G44.029 Active 939792495 Problem Elevated liver enzymes R74.8 Active 552803509 Problem Family history of diabetes mellitus Z83.3 Active 114713023 Problem Bipolar 2 disorder F31.81 Active 95764192 Problem Depression with anxiety F41.8 Active 246551772 Problem Routine health maintenance Z00.00 Active 749375260 Problem Allergic rhinitis J30.9 Active 87996855 Problem Substance abuse, daily use F19.10 Active 928629461 Problem History of hiatal hernia Z87.19 Active 209295245 ALLERGIES No Information SOCIAL HISTORY Never Assessed PLAN OF CARE VITAL SIGNS MEDICATIONS Medication Instructions Dosage Frequency Start Date End Date Duration Status Xanax 1 MG Orally 4 times a day MUST LAST 4 WEEKS 1 tablet 28 days Active Hydrocodone-Acetaminophen 7.5-325 MG Orally every 6 hrs 1 tablet as needed 6h 28 days Active RESULTS No Results PROCEDURES [...] attempt was at then was sent to [place] Hospitalization History C-diff Hospitalization History for bronchitis or pneumonia Hospitalization History for surgeries as well.
--- OUTSIDE RECORDS SUMMARY | 2019-01-18 21:34 | XMS REPORT ---
Author Author ALEKS BOGDAN Organization [facility] Address [address] [place] [address] Care Team Providers Care Body Trimmer Name Role Phone FINKBOGDAN Alfredo Unavailable PROBLEMS Type Condition ICD9-CM Code XNV55-CU Code Onset Dates Condition Status SNOMED Code Problem Nausea R11.0 Active 745594668 Problem Tobacco abuse counseling Z71.6 Active 140482119 Problem Tobacco abuse Z72.0 Active 757208187 Problem Primary insomnia F51.01 Active 4028124 Problem GERD (gastroesophageal reflux disease) K21.9 Active 916516263 Problem Chronic pain syndrome G89.4 Active 783090295 Problem Post menopausal syndrome N95.1 Active 440885328 Problem Obesity (BMI 30.0-34.9) E66.9 Active [id number] Problem Chronic cluster headache, not intractable G44.029 Active 761360884 Problem Elevated liver enzymes R74.8 Active 469721245 Problem Family history of diabetes mellitus Z83.3 Active 155740126 Problem Bipolar 2 disorder F31.81 Active 19790019 Problem Depression with anxiety F41.8 Active 736242871 Problem Routine health maintenance Z00.00 Active 276075191 Problem Allergic rhinitis J30.9 Active 79391192 Problem Substance abuse, daily use F19.10 Active 271002896 Problem History of hiatal hernia Z87.19 Active [id number] ALLERGIES No Information ENCOUNTERS Encounter Location Date Diagnosis [facility] [address] [facility] [id number] [address] Oct, Bipolar 2 disorder F31.81 ; Depression with anxiety F41.8 ; Elevated liver enzymes R74.8 ; Tobacco abuse Z72.0 ; Chronic pain syndrome G89.4 ; GERD (gastroesophageal reflux disease) K21.9 ; Primary insomnia F51.01 ; Post menopausal syndrome N95.1 and Nausea R11.0 [facility] [id number] [address] Aug, [facility] [id number] [place] [address] Jun, Chronic cluster headache, not intractable G44.029 [facility] [id number] [place] [address] Apr, Primary insomnia F51.01 and Violation of controlled substance agreement Z91.14 [facility] [id number] [place] [address] Mar, [place] [address] [address] Feb, [facility] [id number] [place] [address] Feb, Depression with anxiety F41.8 ; Bipolar 2 disorder F31.81 ; Allergic rhinitis J30.9 ; Tobacco abuse Z72.0 ; Post menopausal syndrome N95.1 ; Chronic pain syndrome G89.4 ; Obesity (BMI 30.0-34.9) E66.9 ; GERD (gastroesophageal reflux disease) K21.9 ; Primary insomnia F51.01 ; Long-term use of high-risk medication Z79.899 and Controlled substance agreement signed Z79.899 [place] [id number] [place] [address] Jan, [facility] [id number] [place] [address] Jan, Chronic pain syndrome G89.4 and Depression with anxiety F41.8 [place] [id number] [place] [address] Dec, Chronic pain syndrome G89.4 and Depression with anxiety F41.8 [place] [id number] [place] [address] November, Chronic pain syndrome G89.4 and Depression with anxiety F41.8 [place] [address] [place] [address] November, Abnormal serum enzyme level, unspecified R74.9 [place] [address] [address] November, Family history of diabetes mellitus Z83.3 [place] [id number] [place] [address] November, Depression with anxiety F41.8 ; Bipolar 2 disorder F31.81 ; Allergic rhinitis J30.9 ; Nausea R11.0 ; Obesity (BMI 30.0-34.9) E66.9 ; Substance abuse, daily use F19.10 ; Elevated liver enzymes R74.8 ; History of hiatal hernia Z87.19 ; Post menopausal syndrome N95.1 ; Chronic pain syndrome G89.4 and Routine health maintenance Z00.00 [place] [address] [address] Oct, Chronic pain syndrome G89.4 and Depression with anxiety F41.8 [facility] [address] [address] Oct, Family history of diabetes mellitus Z83.3 [place] [address] [address] Sep, [place] [address] [address] Sep, Chronic pain syndrome G89.4 and Depression with anxiety F41.8 [facility] [id number] [place] [address] Sep, Depression with anxiety F41.8 [place] [id number] [place] [address] Aug, Chronic pain syndrome G89.4 [facility] [id number] [place] [address] Aug, Chronic cluster headache, not intractable G44.029 [place] [address] [place] [address] 03 Aug, 2016 Depression with anxiety F41.8 ; Bipolar 2 disorder F31.81 ; Obesity (BMI 35.0-39.9 without comorbidity) E66.01 ; Allergic rhinitis J30.9 ; Substance abuse, daily use F19.10 ; Nausea R11.0 ; Tobacco abuse Z72.0 ; Chronic pain syndrome G89.4 ; Hiatal hernia K44.9 and Post menopausal syndrome N95.1 [facility] [address] [address] Aug, [place] [address] [address] Jul, Chronic pain syndrome G89.4 [place] [address] [address] Jul, [place] [address] [address] Jun, Depression with anxiety F41.8 ; Bipolar 2 disorder F31.81 ; Obesity (BMI 35.0-39.9 without comorbidity) E66.01 ; Post menopausal syndrome N95.1 and Chronic pain syndrome G89.4 [facility] [id number] [place] [address] Jun, Bronchitis J40 [place] [id number] [place] [address] Jun, [place] [address] [address] May, [place] [address] [address] May, Depression with anxiety F41.8 ; Bipolar 2 disorder F31.81 ; Obesity (BMI 35.0-39.9 without comorbidity) E66.01 ; Tobacco abuse Z72.0 and Tobacco abuse counseling Z71.6 [facility] [address] [address] May, [facility] [address] [address] Apr, [facility] [id number] [place] [address] Apr, Abrasion, right great toe, initial encounter S90.411A and Local infection of the skin and subcutaneous tissue, unspecified L08.9 [facility] [id number] [place] [address] Apr, [facility] [id number] [place] [address] Mar, Depression with anxiety F41.8 ; Bipolar 2 disorder F31.81 ; Obesity (BMI 35.0-39.9 without comorbidity) E66.01 ; Substance abuse, daily use F19.10 ; Elevated liver enzymes R74.8 ; GERD (gastroesophageal reflux disease) K21.9 and Allergic rhinitis J30.9 [facility] [id number] [place] [address] Mar, [facility] [id number] [place] [address] Mar, [place] [id number] [place] [address] Feb, Depression with anxiety F41.8 ; Bipolar 2 disorder F31.81 ; Obesity (BMI 35.0-39.9 without comorbidity) E66.01 ; Substance abuse, daily use F19.10 ; Nausea R11.0 and History of hiatal hernia Z87.19 [facility] [address] [place] [address] Feb, [place] [id number] [place] [address] Feb, Bipolar II disorder F31.81 and Generalized anxiety disorder F41.1 [place] [id number] [place] [address] Jan, [place] [address] [address] Dec, [place] [id number] [place] [address] Dec, Bipolar II disorder F31.81 ; Nausea R11.0 and History of hiatal hernia Z87.19 [place] [id number] [place] [address] November, Bipolar II disorder F31.81 and Generalized anxiety disorder F41.1 [place] [id number] [place] [address] November, Family history of diabetes mellitus Z83.3 [place] [id number] [place] [address] November, [place] [id number] [place] [address] November, Abnormal serum enzyme level, unspecified R74.9 [place] [id number] [place] [address] November, Routine health maintenance Z00.00 ; Depression with anxiety F41.8 ; Obesity (BMI 35.0-39.9 without comorbidity) E66.01 ; Family history of diabetes mellitus Z83.3 ; Bipolar 2 disorder F31.81 ; Allergic rhinitis J30.9 ; Substance abuse, daily use F19.10 ; GERD (gastroesophageal reflux disease) K21.9 ; History of cluster headache Z86.69 and History of hysterectomy Z90.710 [place] [address] [place] [address] November, [place] [id number] [place] [address] November, [place] [address] [place] [address] Oct, Routine health maintenance Z00.00 ; Depression with anxiety F41.8 ; Bipolar 2 disorder F31.81 ; Obesity (BMI 35.0-39.9 without comorbidity) E66.01 ; Allergic rhinitis J30.9 ; Family history of diabetes mellitus Z83.3 ; Substance abuse, daily use F19.10 ; GERD (gastroesophageal reflux disease) K21.9 ; History of cluster headache Z86.69 and History of hysterectomy Z90.710 [facility] [address] [facility] [id number] [place] [id number] Sep, Dental examination Z01.20 IMMUNIZATIONS No Known Immunizations SOCIAL HISTORY Never Assessed REASON FOR VISIT Refill request PLAN OF CARE VITAL SIGNS MEDICATIONS No [...] attempt was at then was sent to [facility] Hospitalization History C-diff Hospitalization History for bronchitis or pneumonia Hospitalization History for surgeries as well.
--- OUTSIDE RECORDS SUMMARY | 2019-01-18 21:35 | XMS REPORT | Continuity of Care Document ---
Author Organization Unknown Address Unknown Allergies Active Description Code Type Severity Reaction Onset Reported/Identified Relationship to Patient Clinical Status Yes SEAFOOD SEAFOOD Mild N/A 10/23/2009 Medications There is no data. Problems Date Dx Coded Attending Type Code Diagnosis Diagnosed By 12/07/2010 Ot 783.1 ABNORMAL WEIGHT GAIN 12/07/2010 Ot 789.00 ABDOMINAL PAIN, UNSPECIFIED SITE 02/20/2011 Ot 784.0 HEADACHE 04/04/2011 Ot 780.52 INSOMNIA, UNSPECIFIED 07/12/2011 Ot 786.50 CHEST PAIN NOS 07/12/2011 Ot 786.52 PAINFUL RESPIRATION 04/03/2012 Ot 008.45 INTESTINAL INFECTION DUE TO CLOSTRIDIUM 04/03/2012 Ot 278.00 OBESITY, NOS 04/03/2012 Ot 300.00 ANXIETY STATE NOS 04/03/2012 Ot V85.25 BODY MASS INDEX 29.0-29.9, ADULT 09/23/2013 ISIDRO STROGN, PRIMO Valle Ot 379.91 PAIN IN OR AROUND EYE 09/23/2013 PRIMO FELIX MD Ot 918.1 SUPERFICIAL INJ CORNEA 09/23/2013 PRIMO FELIX MD Ot E000.8 OTHER EXTERNAL CAUSE STATUS 09/23/2013 PRIMO FELIX MD Ot E849.0 ACCIDENT IN HOME 09/23/2013 PRIMO FELIX MD Ot E928.8 ACCIDENT NEC 05/02/2014 RUT PINEDA REST ROOM MAID Ot 466.0 ACUTE BRONCHITIS 05/02/2014 RUT PINEDA REST ROOM MAID Ot 786.2 COUGH 05/28/2014 BRITTNEY STRONG, KOFFI Carrillo Ot 790.5 09/22/2014 BRITTNEY STRONG, KOFFI Carrillo Ot 296.80 BIPOLAR DISORDER, UNSPECIFIED 09/22/2014 BRITTNEY STRONG, KOFFI Carrillo Ot 965.00 POISONING-OPIUM NOS 09/22/2014 BRITTNEY STRONG, KOFFI Carrillo Ot 969.03 POISONING BY SELECTIVE SEROTONIN REUPTAK 09/22/2014 BRITTNEY STRONG, KOFFI Carrillo Ot 969.4 POIS-BENZODIAZEPINE SORIA 09/22/2014 KOFFI LUGO MD Ot E950.0 SUICIDE-ANALGESICS 09/22/2014 KOFFI LUGO MD Ot E950.3 SUICIDE-PSYCHOTROPIC AGT 09/22/2014 KOFFI LUGO MD Ot V03.82 PROPHYLACTIC VACC AGAINST STREPTOCOCCUS 11/10/2014 KOFFI LUGO MD Ot 296.80 11/10/2014 KOFFI LUGO MD Ot 965.00 11/10/2014 KOFFI LUGO MD Ot 969.03 11/10/2014 KOFFI LUGO MD Ot 969.4 11/10/2014 KOFFI LUGO MD Ot E950.0 11/10/2014 KOFFI LUGO MD Ot E950.3 11/10/2014 KOFFI LUGO MD Ot V03.82 11/27/2014 RUT PINEDA APRN Ot 719.45 JOINT PAIN-PELVIS 12/29/2014 Ot 611.71 12/29/2014 Ot 562.10 12/29/2014 Ot 789.00 12/29/2014 Ot 790.6 12/29/2014 Ot 272.4 12/29/2014 Ot 446.5 12/29/2014 Ot 784.0 12/29/2014 Ot 790.6 12/29/2014 Ot 562.10 12/29/2014 Ot 753.8 12/29/2014 Ot 788.1 12/29/2014 Ot V88.01 12/29/2014 KOFFI LUGO MD Ot 625.9 12/29/2014 KOFFI LUGO MD Ot 787.03 12/29/2014 KOFFI LUGO MD Ot 790.5 01/03/2015 Ot 611.71 01/03/2015 Ot 562.10 01/03/2015 Ot 789.00 01/03/2015 Ot 790.6 01/03/2015 Ot 272.4 01/03/2015 Ot 446.5 01/03/2015 Ot 784.0 01/03/2015 Ot 790.6 01/03/2015 Ot 562.10 01/03/2015 Ot 753.8 01/03/2015 Ot 788.1 01/03/2015 Ot V88.01 01/03/2015 KOFFI LUGO MD Ot 625.9 01/03/2015 KOFFI LUGO MD Ot 787.03 01/03/2015 KOFFI LUGO MD Ot 790.5 01/03/2015 BRITTNEY STRONG, KOFFI Carrillo Ot 780.60 01/03/2015 BRITTNEY STRONG, KOFFI Carrillo Ot 787.01 01/03/2015 Ot 611.71 01/03/2015 Ot 562.10 01/03/2015 Ot 789.00 01/03/2015 Ot 790.6 01/03/2015 Ot 272.4 01/03/2015 Ot 446.5 01/03/2015 Ot 784.0 01/03/2015 Ot 790.6 01/03/2015 Ot 562.10 01/03/2015 Ot 753.8 01/03/2015 Ot 788.1 01/03/2015 Ot V88.01 01/03/2015 BRITTNEY STRONG, KOFFI Carrillo Ot 625.9 01/03/2015 BRITTNEY STRONG, KOFFI Carrillo Ot 787.03 01/03/2015 BRITTNEY STRONG, KOFFI Carrillo Ot 790.5 01/03/2015 BIRTTNEY STRONG, KOFFI Carrillo Ot 780.60 01/03/2015 BRITTNEY STRONG, KOFFI Carrilol Ot 787.01 01/03/2015 AAKASH STRONG, ABBEY Townsend Ot 787.01 NAUSEA WITH VOMITING 01/03/2015 AAKASH STRONG, ABBEY Townsend Ot 787.91 DIARRHEA 01/14/2015 BRITTNEY STRONG, KOFFI Carrillo Ot 780.60 01/14/2015 KOFFI LUGO MD Ot 787.01 02/15/2015 ABBEY FINN MD Ot 558.9 NONINF GASTROENTERIT NEC 02/15/2015 ABBEY FINN MD Ot 787.03 VOMITING ALONE 02/15/2015 ABBEY FINN MD Ot 790.5 ABN SERUM ENZY LEVEL NEC 02/23/2015 Ot 611.71 02/23/2015 Ot 562.10 02/23/2015 Ot 789.00 02/23/2015 Ot 790.6 02/23/2015 Ot 272.4 02/23/2015 Ot 446.5 02/23/2015 Ot 784.0 02/23/2015 Ot 790.6 02/23/2015 Ot 562.10 02/23/2015 Ot 753.8 02/23/2015 Ot 788.1 02/23/2015 Ot V88.01 02/23/2015 BRITTNEY STRONG, KOFFI Carrillo Ot 625.9 02/23/2015 BRITTNEY STRONG, KOFFI Carrillo Ot 787.03 02/23/2015 BRITTNEY STRONG, KOFFI Carrillo Ot 790.5 02/23/2015 BRITTNEY STRONG, KOFFI Carrillo Ot 780.60 02/23/2015 BRITTNEY STRONG, KOFFI Carrillo Ot 787.01 02/23/2015 KEITH SHANE Ot 112.2 CANDIDIAS UROGENITAL NEC 02/23/2015 KEITH SHANE Ot 787.01 NAUSEA WITH VOMITING 02/23/2015 KEITH SHANE Ot 787.91 DIARRHEA 03/09/2015 CLARENCE LOPEZ MD Ot 530.10 ESOPHAGITIS NOS 03/09/2015 CLARENCE LOPEZ MD Ot 535.50 UNSP GASTRITIS GASTRODUODENITIS W/O ME 03/09/2015 CLARENCE LOPEZ MD Ot 553.3 DIAPHRAGMATIC HERNIA 04/26/2015 Ot 562.10 04/26/2015 Ot 789.00 04/26/2015 Ot 790.6 04/26/2015 Ot 272.4 04/26/2015 Ot 446.5 04/26/2015 Ot 784.0 04/26/2015 Ot 790.6 04/26/2015 Ot 562.10 04/26/2015 Ot 753.8 04/26/2015 Ot 788.1 04/26/2015 Ot V88.01 04/26/2015 BRITTNEY STRONG, KOFFI Carrillo Ot 625.9 04/26/2015 BRITTNEY STRONG, KOFFI Carrillo Ot 787.03 04/26/2015 BRITTNEY STRONG, KOFFI Carrillo Ot 790.5 04/26/2015 BRITTNEY STRONG, KOFFI Carrillo Ot 780.60 04/26/2015 KOFFI LUGO MD Ot 787.01 04/26/2015 CLARENCE LOPEZ MD Ot V72.84 05/11/2015 Ot 562.10 05/11/2015 Ot 789.00 05/11/2015 Ot 790.6 05/11/2015 Ot 272.4 05/11/2015 Ot 446.5 05/11/2015 Ot 784.0 05/11/2015 Ot 790.6 05/11/2015 Ot 562.10 05/11/2015 Ot 753.8 05/11/2015 Ot 788.1 05/11/2015 Ot V88.01 05/11/2015 KOFFI LUGO MD Ot 625.9 05/11/2015 KOFFI LUGO MD Ot 787.03 05/11/2015 KOFFI LUGO MD Ot 790.5 05/11/2015 KOFFI LUGO MD Ot 780.60 05/11/2015 KOFFI LUGO MD Ot 787.01 05/11/2015 CLARENCE LOPEZ MD Ot V72.84 11/10/2015 SHENA MARTINES MD Ot F17.210 NICOTINE DEPENDENCE, CIGARETTES, UNCOMPL 11/10/2015 SHENA MARTINES MD Ot R20.0 ANESTHESIA OF SKIN 11/10/2015 SHENA MARTINES MD Ot R20.2 PARESTHESIA OF SKIN 11/10/2015 Ot 562.10 DIVERTICULOSIS COLON (W/O MENT OF HEMORR 11/10/2015 Ot 789.00 ABDOMINAL PAIN, UNSPECIFIED SITE 11/10/2015 Ot 790.6 ABN BLOOD CHEMISTRY NEC 11/10/2015 Ot 272.4 HYPERLIPIDEMIA NEC/NOS 11/10/2015 Ot 446.5 GIANT CELL ARTERITIS 11/10/2015 Ot 784.0 HEADACHE 11/10/2015 Ot 790.6 ABN BLOOD CHEMISTRY NEC 11/10/2015 Ot 562.10 DIVERTICULOSIS COLON (W/O MENT OF HEMORR 11/10/2015 Ot 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 11/10/2015 Ot 788.1 DYSURIA 11/10/2015 Ot V88.01 ACQUIRED ABSENCE OF BOTH CERVIX AND UTER 11/10/2015 KOFFI LUGO MD Ot 625.9 FEM GENITAL SYMPTOMS NOS 11/10/2015 KOFFI LUGO MD Ot 787.03 VOMITING ALONE 11/10/2015 KOFFI LUGO MD Ot 790.5 ABN SERUM ENZY LEVEL NEC 11/10/2015 KOFFI LUGO MD Ot 780.60 FEVER, UNSPECIFIED 11/10/2015 KOFFI LUGO MD Ot 787.01 NAUSEA WITH VOMITING 11/10/2015 JESSICA STRONG, CLARENCE Ot V72.84 EXAM PRE-OPERATIVE NOS 11/11/2015 Ot 562.10 DIVERTICULOSIS COLON (W/O MENT OF HEMORR 11/11/2015 Ot 789.00 ABDOMINAL PAIN, UNSPECIFIED SITE 11/11/2015 Ot 790.6 ABN BLOOD CHEMISTRY NEC 11/11/2015 Ot 272.4 HYPERLIPIDEMIA NEC/NOS 11/11/2015 Ot 446.5 GIANT CELL ARTERITIS 11/11/2015 Ot 784.0 HEADACHE 11/11/2015 Ot 790.6 ABN BLOOD CHEMISTRY NEC 11/11/2015 Ot 562.10 DIVERTICULOSIS COLON (W/O MENT OF HEMORR 11/11/2015 Ot 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 11/11/2015 Ot 788.1 DYSURIA 11/11/2015 Ot V88.01 ACQUIRED ABSENCE OF BOTH CERVIX AND UTER 11/11/2015 KOFFI LUGO MD Ot 625.9 FEM GENITAL SYMPTOMS NOS 11/11/2015 KOFFI LUGO MD Ot 787.03 VOMITING ALONE 11/11/2015 KOFFI LUGO MD Ot 790.5 ABN SERUM ENZY LEVEL NEC 11/11/2015 KOFFI LUGO MD Ot 780.60 FEVER, UNSPECIFIED 11/11/2015 KOFFI LUGO MD Ot 787.01 NAUSEA WITH VOMITING 11/11/2015 JESSICA STRONG, CLARENCE Ot V72.84 EXAM PRE-OPERATIVE NOS 11/11/2015 JCARLOS FORRESTER DO Ot F41.9 ANXIETY DISORDER, UNSPECIFIED 11/11/2015 JCARLOS FORRESTER DO Ot R06.4 HYPERVENTILATION 11/11/2015 JCARLOS FORRESTER DO Ot R07.89 OTHER CHEST PAIN 11/11/2015 JCARLOS FORRESTER DO Ot Z87.891 PERSONAL HISTORY OF NICOTINE DEPENDENCE 11/11/2015 SHENA MARTINES MD Ot F17.210 NICOTINE DEPENDENCE, CIGARETTES, UNCOMPL 11/11/2015 SHENA MARTINES MD Ot R20.0 ANESTHESIA OF SKIN 11/11/2015 SHENA MARTINES MD Ot R20.2 PARESTHESIA OF SKIN 11/13/2015 JCARLOS FORRESTER DO Ot F41.9 ANXIETY DISORDER, UNSPECIFIED 11/13/2015 JCARLOS FORRESTER DO Ot R06.4 HYPERVENTILATION 11/13/2015 JCARLOS FORRESTER DO Ot R07.89 OTHER CHEST PAIN 11/13/2015 JCARLOS FORRESTER DO Ot Z87.891 PERSONAL HISTORY OF NICOTINE DEPENDENCE 11/13/2015 JCARLOS FORRESTER DO Ot F41.9 ANXIETY DISORDER, UNSPECIFIED 11/13/2015 JCARLOS FORRESTER DO Ot R06.4 HYPERVENTILATION 11/13/2015 JCARLOS FORRESTER DO Ot R07.89 OTHER CHEST PAIN 11/13/2015 JCARLOS FORRESTER DO Ot Z87.891 PERSONAL HISTORY OF NICOTINE DEPENDENCE 11/30/2015 JCARLOS FORRESTER DO Ot F41.9 ANXIETY DISORDER, UNSPECIFIED 11/30/2015 JCARLOS FORRESTER DO Ot R06.4 HYPERVENTILATION 11/30/2015 JCARLOS FORRESTER DO Ot R07.89 OTHER CHEST PAIN 11/30/2015 JCARLOS FORRESTER DO Ot Z87.891 PERSONAL HISTORY OF NICOTINE DEPENDENCE 09/17/2016 Ot 272.4 HYPERLIPIDEMIA NEC/NOS 09/17/2016 Ot 446.5 GIANT CELL ARTERITIS 09/17/2016 Ot 784.0 HEADACHE 09/17/2016 Ot 790.6 ABN BLOOD CHEMISTRY NEC 09/17/2016 Ot 562.10 DIVERTICULOSIS COLON (W/O MENT OF HEMORR 09/17/2016 Ot 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 09/17/2016 Ot 788.1 DYSURIA 09/17/2016 Ot V88.01 ACQUIRED ABSENCE OF BOTH CERVIX AND UTER 09/17/2016 BRITTNEY STRONG, KOFFI Carrillo Ot 625.9 FEM GENITAL SYMPTOMS NOS 09/17/2016 BRITTNEY STRONG, KOFFI Carrillo Ot 787.03 VOMITING ALONE 09/17/2016 BRITTNEY STRONG, KOFFI Carrillo Ot 790.5 ABN SERUM ENZY LEVEL NEC 09/17/2016 BRITTNEY STRONG, KOFFI Carrillo Ot 780.60 FEVER, UNSPECIFIED 09/17/2016 BRITTNEY STRONG, KOFFI Carrillo Ot 787.01 NAUSEA WITH VOMITING 09/17/2016 JESSICA STRONG, CLARENCE Ot V72.84 EXAM PRE-OPERATIVE NOS 09/18/2016 KADEN CONLEY Ot F17.210 NICOTINE DEPENDENCE, CIGARETTES, UNCOMPL 09/18/2016 KADEN CONLEY Ot R11.2 NAUSEA WITH VOMITING, UNSPECIFIED 09/18/2016 KADEN CONLEY Ot R51 HEADACHE 09/18/2016 KADEN CONLEY Ot Z79.899 OTHER RETIREMENT (CURRENT) DRUG THERAPY 09/18/2016 Ot 272.4 HYPERLIPIDEMIA NEC/NOS 09/18/2016 Ot 446.5 GIANT CELL ARTERITIS 09/18/2016 Ot 784.0 HEADACHE 09/18/2016 Ot 790.6 ABN BLOOD CHEMISTRY NEC 09/18/2016 Ot 562.10 DIVERTICULOSIS COLON (W/O MENT OF HEMORR 09/18/2016 Ot 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 09/18/2016 Ot 788.1 DYSURIA 09/18/2016 Ot V88.01 ACQUIRED ABSENCE OF BOTH CERVIX AND UTER 09/18/2016 KOFFI LUGO MD Ot 625.9 FEM GENITAL SYMPTOMS NOS 09/18/2016 KOFFI LUGO MD Ot 787.03 VOMITING ALONE 09/18/2016 KOFFI LUGO MD Ot 790.5 ABN SERUM ENZY LEVEL NEC 09/18/2016 KOFFI LUGO MD Ot 780.60 FEVER, UNSPECIFIED 09/18/2016 KOFFI LUGO MD Ot 787.01 NAUSEA WITH VOMITING 09/18/2016 JESSICA STRONG, [facility] Ot V72.84 EXAM PRE-OPERATIVE NOS 09/18/2016 YAEL, KADEN MORTGAGE PROCESSING CLERK Ot F17.210 NICOTINE DEPENDENCE, CIGARETTES, UNCOMPL 09/18/2016 YAEL, KADEN MORTGAGE PROCESSING CLERK Ot R11.2 NAUSEA WITH VOMITING, UNSPECIFIED 09/18/2016 YAEL, KADEN MORTGAGE PROCESSING CLERK Ot R51 HEADACHE 09/18/2016 YAEL, KADEN MORTGAGE PROCESSING CLERK Ot Z79.899 OTHER RETIREMENT (CURRENT) DRUG THERAPY 09/23/2016 YAEL, KADEN MORTGAGE PROCESSING CLERK Ot F17.210 NICOTINE DEPENDENCE, CIGARETTES, UNCOMPL 09/23/2016 YAEL, KADEN MORTGAGE PROCESSING CLERK Ot R11.2 NAUSEA WITH VOMITING, UNSPECIFIED 09/23/2016 YAEL, KADEN MORTGAGE PROCESSING CLERK Ot R51 HEADACHE 09/23/2016 YAEL, KADEN MORTGAGE PROCESSING CLERK Ot Z79.899 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) DRUG THERAPY 11/26/2016 Ot 272.4 HYPERLIPIDEMIA NEC/NOS 11/26/2016 Ot 446.5 GIANT CELL ARTERITIS 11/26/2016 Ot 784.0 HEADACHE 11/26/2016 Ot 790.6 ABN BLOOD CHEMISTRY NEC 11/26/2016 Ot 562.10 DIVERTICULOSIS COLON (W/O MENT OF HEMORR 11/26/2016 Ot 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 11/26/2016 Ot 788.1 DYSURIA 11/26/2016 Ot V88.01 ACQUIRED ABSENCE OF BOTH CERVIX AND UTER 11/26/2016 KOFFI LUGO MD Ot 625.9 FEM GENITAL SYMPTOMS NOS 11/26/2016 KOFFI LUGO MD Ot 787.03 VOMITING ALONE 11/26/2016 KOFFI LUGO MD Ot 790.5 ABN SERUM ENZY LEVEL NEC 11/26/2016 KOFFI LUGO MD Ot 780.60 FEVER, UNSPECIFIED 11/26/2016 KOFFI LUGO MD Ot 787.01 NAUSEA WITH VOMITING 11/26/2016 CLARENCE LOPEZ MD, Ot V72.84 EXAM PRE-OPERATIVE NOS 11/27/2016 CLARENCE LOPEZ MD Ot 530.10 ESOPHAGITIS NOS 11/27/2016 CLARENCE LOPEZ MD Ot 535.50 UNSP GASTRITIS GASTRODUODENITIS W/O ME 11/27/2016 CLARENCE LOPEZ MD, Ot 553.3 DIAPHRAGMATIC HERNIA Procedures There is no data. Results Test Result Range Complete blood count (CBC) with automated white blood cell (WBC) differential - 09/17/16 22:20 Blood leukocytes automated count (number/volume) 9.6 10*3/uL 4.3-11.0 Blood erythrocytes automated count (number/volume) 4.53 10*6/uL 4.35-5.85 Venous blood hemoglobin measurement (mass/volume) 13.4 g/dL 11.5-16.0 Blood hematocrit (volume fraction) 39 % 35-52 Automated erythrocyte mean corpuscular volume 85 [foz_us] 80-99 Automated erythrocyte mean corpuscular hemoglobin (mass per erythrocyte) 30 pg 25-34 Automated erythrocyte mean corpuscular hemoglobin concentration measurement (mass/volume) 35 g/dL 32-36 Automated erythrocyte distribution width ratio 12.4 % 10.0- 14.5 Automated blood platelet count (count/volume) 335 10*3/uL 130-400 Automated blood platelet mean volume measurement 10.7 [foz_us] 7.4-10.4 Automated blood neutrophils/100 leukocytes 56 % 42-75 Automated blood lymphocytes/100 leukocytes 37 % 12-44 Blood monocytes/100 leukocytes 5 % 0-12 Automated blood eosinophils/100 leukocytes 1 % 0-10 Automated blood basophils/100 leukocytes 0 % 0-10 Blood neutrophils automated count (number/volume) 5.4 10*3 1.8-7.8 Blood lymphocytes automated count (number/volume) 3.6 10*3 1.0-4.0 Blood monocytes automated count (number/volume) 0.5 10*3 0.0- 1.0 Automated eosinophil count 0.1 10*3/uL 0.0-0.3 Automated blood basophil count (count/volume) 0.0 10*3/uL 0.0-0.1 Erythrocyte sedimentation rate by westergren method - 09/17/16 22:20 Erythrocyte sedimentation rate by westergren method 22 mm 0-20 Comprehensive metabolic panel - 09/17/16 22:20 Serum or plasma sodium measurement (moles/volume) 140 mmol/L 135-145 Serum or plasma potassium measurement (moles/volume) 3.5 mmol/L 3.6-5.0 Serum or plasma chloride measurement (moles/volume) 108 mmol/L 98-107 Carbon dioxide 18 mmol/L 21-32 Serum or plasma anion gap determination (moles/volume) 14 mmol/L 5-14 Serum or plasma urea nitrogen measurement (mass/volume) 6 mg/dL 7-18 Serum or plasma creatinine measurement (mass/volume) 0.82 mg/dL 0.60-1.30 Serum or plasma urea nitrogen/creatinine mass ratio 7 NRG Serum or plasma creatinine measurement with calculation of estimated glomerular filtration rate > NRG Serum or plasma glucose measurement (mass/volume) 118 mg/dL 70-105 Serum or plasma calcium measurement (mass/volume) 9.4 mg/dL 8.5-10.1 Serum or plasma total bilirubin measurement (mass/volume) 0.3 mg/dL 0.1-1.0 Serum or plasma alkaline phosphatase measurement (enzymatic activity/volume) 136 U/L 40-136 Serum or plasma aspartate aminotransferase measurement (enzymatic activity/volume) 22 U/L 5-34 Serum or plasma alanine aminotransferase measurement (enzymatic activity/volume) 39 U/L 0-55 Serum or plasma protein measurement (mass/volume) 6.8 g/dL 6.4-8.2 Serum or plasma albumin measurement (mass/volume) 4.4 g/dL 3.2-4.5 Complete urinalysis with reflex to culture - 09/17/16 23:40 Urine color determination YELLOW NRG Urine clarity determination CLEAR NRG Urine pH measurement by test strip 6.5 5-9 Specific gravity of urine by test strip 1.005 1.016-1.022 Urine protein assay by test strip, semi-quantitative NEGATIVE NEGATIVE Urine glucose detection by automated test strip NEGATIVE NEGATIVE Erythrocytes detection in urine sediment by light microscopy NEGATIVE NEGATIVE Urine ketones detection by automated test strip NEGATIVE NEGATIVE Urine nitrite detection by test strip NEGATIVE NEGATIVE Urine total bilirubin detection by test strip NEGATIVE NEGATIVE Urine urobilinogen measurement by automated test strip (mass/volume) NORMAL NORMAL Urine leukocyte esterase detection by dipstick NEGATIVE NEGATIVE Automated urine sediment erythrocyte count by microscopy (number/high power field) NONE NRG Automated urine sediment leukocyte count by microscopy (number/high power field) NONE NRG Bacteria detection in urine sediment by light microscopy NONE NRG Squamous epithelial cells detection in urine sediment by light microscopy 0-2 NRG Crystals detection in urine sediment by light microscopy NONE NRG Casts detection in urine sediment by light microscopy NONE NRG Mucus detection in urine sediment by light microscopy NEGATIVE NRG Complete urinalysis with reflex to culture NO NRG VITAMIN D, 25-H - 02/14/18 09:56 VITAMIN D,25-OH,TOTAL,IA 23 ng/mL 30-100 PDM - PAIN MGMT (PROFILE 3 WITH CONFIRMATION) - 02/14/18 09:56 Creatinine 77.6 mg/dL > or=20.0 pH 7.12 4.5 - 9.0 Oxidant NEGATIVE mcg/mL <200 Amphetamines NEGATIVE ng/mL <500 medMATCH Amphetamines CONSISTENT NRG Benzodiazepines NEGATIVE ng/mL <100 medMATCH Benzodiazepines CONSISTENT NRG Marijuana Metabolite NEGATIVE ng/mL <20 medMATCH Marijuana Metab CONSISTENT NRG Cocaine Metabolite NEGATIVE ng/mL <150 medMATCH Cocaine Metab CONSISTENT NRG Opiates NEGATIVE ng/mL <100 medMATCH Opiates CONSISTENT NRG Oxycodone NEGATIVE ng/mL <100 medMATCH Oxycodone CONSISTENT NRG COMMENT NRG FOLATE (FOLIC ACID) - 02/14/18 10:01 FOLATE, SERUM 18.8 ng/mL NRG VITAMIN B12 - 02/14/18 10:01 VITAMIN B12 1462 pg/mL 200-1100 INSULIN LEVEL - 05/12/18 10:22 INSULIN 12.2 uIU/mL 2.0-19.6 Encounters ACCT No. Visit Date/Time Discharge Status Pt. Type Provider Facility Loc./Unit Complaint [id number] 11/27/2018 13:20:00 11/27/2018 23:59:59 CLS Outpatient [facility] [id number] 05/12/2018 10:00:00 Document Registration [id number] 02/14/2018 09:40:00 Document Registration [id number] 09/17/2016 20:30:00 09/18/2016 00:12:00 DIS Emergency KADEN CONLEY [facility] ER N,V,D,FEVER [id number] 11/11/2015 00:09:00 11/11/2015 03:10:00 DIS Emergency JCARLOS FORRESTER DO [facility] ER CP [id number] 11/10/2015 10:03:00 11/10/2015 13:54:00 DIS Emergency SHENA MARTINES MD [facility] ER NUMBNESS [id number] 03/09/2015 07:51:00 03/09/2015 11:00:00 DIS Outpatient CLARENCE LOPEZ MD [facility] NAUSEA; VOMITING [id number] 03/03/2015 06:18:00 03/03/2015 23:59:59 CLS Outpatient CLARENCE LOPEZ MD [facility] PREOP NAUSEA;VOMITING [id number] 02/23/2015 11:50:00 02/23/2015 15:34:00 DIS Emergency KEITH SHANE [facility] ER VOMITING [id number] 02/15/2015 13:36:00 02/15/2015 16:25:00 DIS Emergency ABBEY FINN MD [facility] ER VOMITING/DIARRHEA [id number] 01/03/2015 14:23:00 01/03/2015 17:40:00 DIS Emergency ABBEY FINN MD [facility] ER VOMITING/NAUSEA [id number] 12/29/2014 09:09:00 12/29/2014 23:59:59 CLS Outpatient KOFFI LUGO MD [facility] RAD FEVER,NAUSEA,VOMITTING [id number] 11/27/2014 11:35:00 11/27/2014 13:20:00 DIS Emergency RUT PINEDA APRN [facility] ER UNABLE TO STAND-R HIP LEG [id number] 09/21/2014 16:45:00 09/22/2014 14:00:00 DIS Inpatient KOFFI LUGO MD [facility] 4TH INTENTIONAL DRUG OVERDOSE [id number] 05/10/2014 10:29:00 05/10/2014 23:59:59 CLS Outpatient KOFFI LUGO MD [facility] RAD ELEVATED LIVER ENZYMES [id number] 05/02/2014 17:01:00 05/02/2014 18:20:00 DIS Emergency RUT PINEDA REST ROOM MAID [facility] ER COUGH/FEVER [id number] 03/01/2014 13:15:00 03/01/2014 23:59:59 CLS Outpatient KOFFI LUGO MD [facility] RAD ABD/PELVIC PAIN,VOMITTING [id number] 09/23/2013 04:21:00 09/23/2013 04:43:00 DIS Emergency PRIMO FELIX MD [facility] ER RT EYE PAIN [id number] 12/29/2014 09:09:00 Document Registration [id number] 12/29/2014 09:09:00 Document Registration [id number] 12/29/2014 09:09:00 Document Registration [id number] 12/29/2014 09:09:00 Document Registration [id number] 12/29/2014 09:09:00 Document Registration [id number] 12/29/2014 09:09:00 Document Registration [id number] 12/29/2014 09:09:00 Document Registration [id number] 12/29/2014 09:09:00 Document Registration [id number] 03/31/2012 11:24:00 Document Registration [id number] 10/09/2011 08:12:00 Document Registration [id number] 07/12/2011 12:29:00 Document Registration
[2019-01-18] MEDS ORDERED: LORazepam INJ 2 MG/ML (ATIVAN) VIAL IVP PRN (21:45)
[2019-01-18 21:47] LABS: ALANINE AMINOTRANSFERASE 46 U/L (0-55); ALKALINE PHOSPHATASE 153 U/L (40-136); BILIRUBIN,TOTAL 0.3 MG/DL (0.1-1.0); BUN/CREATININE RATIO 14; CALCIUM 10.7 MG/DL (8.5-10.1); CARBON DIOXIDE 21 MMOL/L (21-32); CHLORIDE 105 MMOL/L (98-107); CREATININE SERUM 0.86 MG/DL (0.60-1.30); GFR ESTIMATED > 60; GLUCOSE 85 MG/DL (70-105); POTASSIUM 3.8 MMOL/L (3.6-5.0); SODIUM 140 MMOL/L (135-145); TOTAL PROTEIN 8.3 GM/DL (6.4-8.2)
[2019-01-18] MEDS ORDERED: KETOROLAC 30 MG/ML VIAL IVP STA (22:50)
[2019-01-18] MEDS ORDERED: CYCLOBENZAPRINE 10 MG (FLEXERIL) TAB PO STA (23:18)
[2019-01-18] MEDS ORDERED: HYDR-34 PO (23:25)
[2019-01-18] MEDS ORDERED: CYCL10TA9 PO (23:25)
[2019-01-18] MEDS ORDERED: RX-HYDROCODONE/APAP 5/325 MG #4 TAB PK PO PRN (23:30)
[2019-01-18 23:39] VITALS: BP 110/79
--- NOTE | 2019-01-19 06:52 | Diagnostic Imaging Report ---
PROCEDURE: CT angiography of the chest with contrast. TECHNIQUE: Multiple contiguous axial images were obtained through the chest after uneventful bolus administration of intravenous contrast. 2D reconstructed CTA MIP acquisitions were also performed. Auto Exposure Controls were utilized during the CT exam to meet ALARA standards for radiation dose reduction. DATE: January 18, 2019. COMPARISON: Chest radiographs November 11, 2015. CT chest November 11, 2015. INDICATION: 39-year-old female, left-sided chest pain. FINDINGS: There is no identified pulmonary nodule or lung mass. There is some respiratory motion artifact. There is no focal airspace consolidation. There is no pneumothorax. There is no pleural effusion. The heart is not enlarged. There is no identified pericardial effusion. There is no identified central pulmonary embolus. The main pulmonary artery is grossly unremarkable in caliber. There is no identified abnormally enlarged mediastinal, hilar, or axillary lymph node which meets CT size criteria for adenopathy. The patient is status post cholecystectomy. Additional evaluation of the abdomen is unremarkable. There is a mildly displaced fracture of the left fifth rib on axial image 36. IMPRESSION: CT CHEST. 1. Mildly displaced fracture of the left fifth rib. 2. No identified pulmonary embolus or other acute cardiopulmonary abnormality. Dictated by: Dictated on workstation # [id number]
--- NOTE | 2019-01-19 07:48 | Diagnostic Imaging Report ---
EXAMINATION: Left shoulder radiographs, 2 views. COMPARISON: None. HISTORY: 39-year-old female, left-sided chest pain. FINDINGS: There is a very mildly displaced fracture of the left fifth rib. This is much better seen on same day CT chest. The acromioclavicular joint is normally aligned. There are no prominent acromioclavicular degenerative changes. There are limitations for assessment of humeral head positioning given the AP internal and external views obtained. There is no obvious glenohumeral joint dislocation. There is no additionally identified fracture. IMPRESSION: 1. Mildly displaced fracture of the left fifth rib much better seen on same day CT chest. 2. No additional identified acute bony abnormality at the level of the left shoulder. Dictated by: Dictated on workstation # [id number]
== END 2019-01-18 23:39 | disposition home or self-care (01) ==
LOC: EDUNIT# 21:18 → ER 21:19
DX: S22.32XA Fracture of one rib, left side, initial encounter for closed fracture (principal); E78.00 Pure hypercholesterolemia, unspecified; G43.909 Migraine, unspecified, not intractable, without status migrainosus; F41.9 Anxiety disorder, unspecified; F31.9 Bipolar disorder, unspecified; Z91.013 Allergy to seafood; Z90.49 Acquired absence of other specified parts of digestive tract; Z90.710 Acquired absence of both cervix and uterus; X58.XXXA Exposure to other specified factors, initial encounter
CPT/HCPCS: 36415; 71275; 73030; 80053; 84484; 85025; 85379; 93005; 96374; 96375; 96376

== ENCOUNTER 2020-02-10 11:56 | Emergency (ER) | payer OTHER ==
[~2020-02-10] VITALS: Ht 152 cm; Wt 86.0 kg
[2020-02-10 11:56] VITALS: BP 149/104
[~2020-02-10 11:56] MED LIST changes: +CYCL10TA9 PO; +HYDR-34 PO; -OMEP20CA12 PO; +OMEP20CA18 PO; -ONDA8TAB12 PO; +ONDA8TAB15 PO
[2020-02-10] MEDS ORDERED: PRD20T PO (12:12)
[2020-02-10] MEDS ORDERED: ACYC400T PO (12:12)
--- NOTE | 2020-02-10 12:12 | ED Neurological Problem ---
General Chief Complaint: Neurological Problems Stated Complaint: STROKE SYMPTOMS Source: patient Exam Limitations: no limitations History of Present Illness Date Seen by Provider: Feb 10, 2020 Time Seen by Provider: 12:07 Initial Comments To ER with reports of right-sided facial numbness. She first noticed this yesterday as a tingling sensation in the right side of her face. It was mild at first and as time went on progressing into today she now has inability to blink and close the right eye, food and water, out the corner of her mouth on the right side as she is unable to close that side. She denies any other symptoms or troubles. This does not affect her gait or her arms or legs. It is confined to the face. Starting 2-3 days ago she had some pain behind the right ear. Timing/Duration: 24 hours Severity: severe Associated Symptoms: No slurred speech, No vision changes Allergies and Home Medications Allergies Uncoded Allergies: SEAFOOD (Allergy, Mild, 10/23/09) Home Medications Alprazolam 1 Mg Tablet, 1 MG PO QID PRN for ANXIETY, (Reported) Ascorbic Acid 500 Mg Tablet, 500 MG PO DAILY, (Reported) Atorvastatin Calcium 20 Mg Tablet, 20 MG PO DAILY, (Reported) Cyclobenzaprine HCl 10 Mg Tablet, 10 MG PO Q8H PRN for SPASMS Prescribed by: YOLANDA COELHO on 01/18/192324 Estradiol 2 Mg Tablet, 1 MG PO DAILY, (Reported) TAKES 1/2 (2MG) TABLET Hydrocodone Bit/Acetaminophen 1 Tab Tablet, 1 TAB PO QID PRN for PAIN, (Reported) Hydrocodone Bit/Acetaminophen 1 Ea Tablet, 1 EACH PO Q6H Prescribed by: YOLANDA COELHO on 01/18/19 232 Ketorolac Tromethamine 10 Mg Tablet, 10 MG PO Q6H Prescribed by: JCARLOS FORRESTER on 11/11/15 0244 Loratadine 10 Mg Tablet, 10 MG PO DAILY, (Reported) Metoclopramide HCl 5 Mg Tablet, 5 MG PO QID PRN for NAUSEA/VOMITING Prescribed by: KEITH CORNEJO on 02/23/15 1455 Multivitamin 1 Each Tablet, 1 TAB PO DAILY, (Reported) Omeprazole 20 Mg Capsule.dr, 20 MG PO BID, (Reported) Ondansetron HCl 8 Mg Tablet, 8 MG PO QID PRN for NAUSEA, (Reported) Pantoprazole Sodium 40 Mg Tablet.dr, 40 MG PO DAILY Prescribed by: CLARENCE LOPEZ on 03/09/151006 Ranitidine HCl 300 Mg Tablet, 300 MG PO HS, (Reported) Sucralfate 1 Gm Tablet, 1 GM PO QID Prescribed by: CLARENCE LOPEZ on 03/09/151006 Venlafaxine HCl 150 Mg Cap.er.24h, 150 MG PO DAILY, (Reported) Patient Home Medication List Home Medication List Reviewed: Yes Review of Systems Review of Systems Constitutional: see HPI Eyes: See HPI, Other (unable to blink the right eye) Ears, Nose, Mouth, Throat: no symptoms reported Respiratory: no symptoms reported Cardiovascular: no symptoms reported Genitourinary: no symptoms reported Musculoskeletal: no symptoms reported Skin: no symptoms reported Psychiatric/Neurological: No Symptoms Reported Endocrine: No Symptoms Reported Hematologic/Lymphatic: No Symptoms Reported Past Rcybzbs-Nldntg-Tpvxrf Hx Patient Social History Type Used: Electronic/Vapor 2nd Hand Smoke Exposure: Yes Recent Foreign Travel: No Contact w/Someone Who Travel: No Recent Hopitalizations: Yes Immunizations Up To Date Date of Influenza Vaccine: Jun 07, 2013 Past Medical History Surgeries: Yes (LAPROSCOPY X 8 FOR ENDOMETRIOSIS; HYST/BSO, WISDOM TEETH) Abdominal, Appendectomy, Gallbladder, Hysterectomy, Oophorectomy Respiratory: No Cardiac: Yes High Cholesterol Neurological: Yes Headaches /Migraines Reproductive Disorders: Yes Female Reproductive Disorders: Endometriosis [employer] K[employer] History: Hysterectomy Gastrointestinal: No Hiatal Hernia Musculoskeletal: No Endocrine: No Cancer: No Psychosocial: Yes ("SEVERE ANXIETY" PER PT) Anxiety, Suicide Attempts, Bipolar, Depression Integumentary: No Blood Disorders: No Family Medical History Cancer, Diabetes Physical Exam Vital Signs Capillary Refill : Height, Weight, BMI Height: 5'1.00" Weight: 190lbs. 3.0oz. [id number]; 33.06 BMI Method:Stated General Appearance: WD/WN, no apparent distress HEENT: PERRL/EOMI, normal ENT inspection, other (complete paresis of the right side of the face. Unable to wrinkle her forehead on the right side or raise the right eyebrow, unable to blink her right eye closed. No arm drift or other neurologic symptoms, this is a seventh cranial nerve palsy) Respiratory: no respiratory distress, no accessory muscle use Cardiovascular: regular rate, rhythm, no murmur Gastrointestinal: normal bowel sounds, non tender, soft Neurologic/Psychiatric: alert, normal mood/affect, oriented x 3 Crainal Nerves: normal hearing, normal speech, PERRL, facial asymmetry, facial droop, facial paresthesias, facial weakness Skin: normal color, warm/dry Departure Impression Primary Impression: Villafuerte's palsy Disposition: 01 HOME, SELF-CARE Condition: Stable Departure-Patient Inst. Decision time for Depature: 12:09 Referrals: [facility] (PCP/Family) Primary Care Physician Patient Instructions: Villafuerte's Palsy (DC) Add. Discharge Instructions: 1. You need to get some Visine eyedrops to keep the right eye moist. You may want to tape the eye shut during sleep as you will have difficulty keeping it closed and this could lead to scratches or abrasions on the cornea. The most helpful thing to do is steroids and antivirals. These have been sent to [facility]. Get these started as soon as you leave here. All discharge instructions reviewed with patient and/or family. Voiced understanding. Scripts Acyclovir (Acyclovir) 400 Mg Tablet 400 MG PO 5XD, #35 TAB Prov: RUT PINEDA APRN 02/10/20 Prednisone (Prednisone) 20 Mg Tab 20 MG PO DAILY, #22 TAB Take 3 tabs(60mg)daily,decrease by 1/2 tab(10mg)every other day. Prov: RUT PINEDA APRN 02/10/20 Work/School Note: Work Release Form Date Seen in the Emergency Department: Feb 10, 2020 RUT PINEDA APRN Feb 10, 2020 12:11
--- NOTE | 2020-02-10 12:19 | NUR ---
PT CALLING MOM FOR A RIDE.
== END 2020-02-10 12:16 | disposition home or self-care (01) ==
LOC: EDUNIT# 11:56 → ER 11:57
DX: G51.0 Bell's palsy (principal); E78.00 Pure hypercholesterolemia, unspecified; G43.909 Migraine, unspecified, not intractable, without status migrainosus; F41.9 Anxiety disorder, unspecified; F31.9 Bipolar disorder, unspecified; Z91.013 Allergy to seafood; Z90.49 Acquired absence of other specified parts of digestive tract; Z90.710 Acquired absence of both cervix and uterus
CPT/HCPCS: 99283

== ENCOUNTER 2020-10-09 13:23 | Emergency (ER) | payer OTHER ==
[~2020-10-09] VITALS: Ht 152.4 cm; Wt 91.6 kg
[~2020-10-09 13:23] MED LIST changes: +ACYC400T PO; -CIPR500T4 PO; +CIPR500T5 PO
[2020-10-09] MEDS ORDERED: morphine INJ 10 MG/ML 1ML (SYR OR VIAL) IVP STA (13:46)
--- NOTE | 2020-10-09 13:56 | ED Chest Pain ---
General Chief Complaint: Chest Pain Stated Complaint: L ARM/SHOULDER PAIN/CP Source: patient Exam Limitations: no limitations History of Present Illness Date Seen by Provider: Oct 09, 2020 Time Seen by Provider: 13:30 Initial Comments The patient arrives to the ER by private conveyance from home with chief complaint of 2 days progressive back and left neck/left shoulder pain radiating down her left arm. It started radiating into her chest as well deep behind her left breast. It is not worse to deep palpation. It is not worse with movement. She feels it is worse with deep inspiration. She denies a history of heart disease or pulmonary embolisms. She is not having any shortness of air but she did have some nausea and took some Tylenol and her pain is creeping up to a 7 out of 10 and she is in quite distress so her brought her to the ER. She has no recent trauma. She does have a history of a left rib fracture secondary to chiropractory many years ago. No family history. She does have high cholesterol and takes flaxseed oil. She has a history of bipolar disorder. She does not have high blood pressure and use the clonidine for sleep only. She does not smoke and has not been diagnosed with diabetes. Primary care by [facility]. The patient took ibuprofen and muscle relaxer few hours before coming in with no relief of symptoms. Allergies and Home Medications Allergies Uncoded Allergies: SEAFOOD (Allergy, Mild, 10/23/09) Home Medications Acyclovir 400 Mg Tablet, 400 MG PO 5XD Prescribed by: RUT PINEDA on 02/10/20 1212 Alprazolam 1 Mg Tablet, 1 MG PO QID PRN for ANXIETY, (Reported) Ascorbic Acid 500 Mg Tablet, 500 MG PO DAILY, (Reported) Atorvastatin Calcium 20 Mg Tablet, 20 MG PO DAILY, (Reported) Cyclobenzaprine HCl 10 Mg Tablet, 10 MG PO Q8H PRN for SPASMS Prescribed by: YOLANDA COELHO on 01/18/19 232 Estradiol 2 Mg Tablet, 1 MG PO DAILY, (Reported) TAKES 1/2 (2MG) TABLET Hydrocodone Bit/Acetaminophen 1 Tab Tablet, 1 TAB PO QID PRN for PAIN, (Reported) Hydrocodone Bit/Acetaminophen 1 Ea Tablet, 1 EACH PO Q6H Prescribed by: YOLANDA COELHO on 01/18/19 232 Hydrocodone/Acetaminophen 1 Each Tablet, 1 EACH PO Q6H PRN for PAIN-BREAKTHROUGH Prescribed by: DIPTI MOSLEY on 10/09/20 1640 Ketorolac Tromethamine 10 Mg Tablet, 10 MG PO Q6H Prescribed by: JCARLOS FORRESTER on 11/11/15 0244 Loratadine 10 Mg Tablet, 10 MG PO DAILY, (Reported) Metoclopramide HCl 5 Mg Tablet, 5 MG PO QID PRN for NAUSEA/VOMITING Prescribed by: KEITH CORNEJO on 02/23/15 1455 Multivitamin 1 Each Tablet, 1 TAB PO DAILY, (Reported) Naproxen 500 Mg Tablet, 500 MG PO BID Prescribed by: DIPTI MOSLEY on 10/09/20 1640 Omeprazole 20 Mg Capsule.dr, 20 MG PO BID, (Reported) Ondansetron 4 Mg Tab.rapdis, 4 MG PO Q6H PRN for NAUSEA/VOMITING Prescribed by: DIPTI MOSLEY on 10/09/20 1640 Ondansetron HCl 8 Mg Tablet, 8 MG PO QID PRN for NAUSEA, (Reported) Pantoprazole Sodium 40 Mg Tablet.dr, 40 MG PO DAILY Prescribed by: CLARENCE LOPEZ on 03/09/151006 Prednisone 20 Mg Tab, 20 MG PO DAILY Take 3 tabs(60mg)daily,decrease by 1/2 tab(10mg)every other day. Prescribed by: RUT PINEDA on 02/10/20 1212 Ranitidine HCl 300 Mg Tablet, 300 MG PO HS, (Reported) Sucralfate 1 Gm Tablet, 1 GM PO QID Prescribed by: CLARENCE LOPEZ on 03/09/15 1007 Venlafaxine HCl 150 Mg Cap.er.24h, 150 MG PO DAILY, (Reported) Patient Home Medication List Home Medication List Reviewed: Yes Review of Systems Review of Systems Constitutional: No chills, No fever, No malaise EENTM: No Blurred Vision, No Double Vision Respiratory: Denies Cough, Denies Shortness of Air Cardiovascular: See HPI, Chest Pain; Denies Edema, Denies Irregular Heart Rate, Denies Lightheadedness, Denies Palpitations, Denies Syncope Gastrointestinal: Denies Abdominal Pain, Denies Constipated, Denies Diarrhea; Nausea; Denies Vomiting Genitourinary: Denies Burning, Denies Discharge Musculoskeletal: see HPI; No back pain; joint pain (Left shoulder), neck pain All Other Systems Reviewed Negative Unless Noted: Yes Past Flautfb-Awukov-Lrjxcn Hx Patient Social History Alcohol Use: Denies Use Smoking Status: Never a Smoker Type Used: Electronic/Vapor 2nd Hand Smoke Exposure: Yes Recent Hopitalizations: Yes Immunizations Up To Date Date of Influenza Vaccine: Jun 07, 2013 Past Medical History Surgeries: Yes (LAPROSCOPY X 8 FOR ENDOMETRIOSIS; HYST/BSO, WISDOM TEETH) Abdominal, Appendectomy, Gallbladder, Hysterectomy, Oophorectomy Respiratory: No Cardiac: Yes High Cholesterol Neurological: Yes Headaches /Migraines Reproductive Disorders: Yes 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 3.0oz. 86.728673dj; 37.00 BMI Method:Stated General Appearance: WD/WN, Anxious, Moderate Distress HEENT: PERRL/EOMI, Pharynx Normal, Moist Mucous Membranes Neck: Full Range of Motion, Normal Inspection, Supple, Tender Lateral (Left side when loaded and palpated can recreate the symptoms over C5/C6 region) Respiratory: Lungs Clear, Normal Breath Sounds, No Accessory Muscle Use, No Respiratory Distress Cardiovascular: Regular Rate, Rhythm, No Edema, No Murmur, Normal Peripheral Pulses Gastrointestinal: Non Tender, Soft Extremity: Normal Capillary Refill, Normal Inspection, Non Tender, No Pedal Edema Neurologic/Psychiatric: Alert, Oriented x3 Skin: Normal Color, Warm/Dry Procedures/Interventions Progress Point tenderness injection over the medial left trapezius. Admixture of 1-1/2 cc 2% lidocaine with epinephrine and 1-1/2 cc of half percent Marcaine without epinephrine. 1 cc of Depo-Medrol 40 mg/mL. Surface was cleaned with alcohol and using Z track method and a 25-gauge 1-1/2 inch needle we put the needle tip at the point of maximal tenderness and aspir ated no blood and injected. Band-Aid was placed. Patient tolerated the procedure Progress/Results/Core Measures Results/Orders Lab Results Laboratory Tests Test 10/09/20 13:40 10/09/20 15:24 Range/Units White Blood Count 8.1 4.3-11.0 10^3/uL Red Blood Count 4.79 3.80-5.11 10^6/uL Hemoglobin 14.2 11.5-16.0 g/dL Hematocrit 42 35-52 % Mean Corpuscular Volume 88 80-99 fL Mean Corpuscular Hemoglobin 30 25-34 pg Mean Corpuscular Hemoglobin Concent 34 32-36 g/dL Red Cell Distribution Width 11.9 10.0-14.5 % Platelet Count 319 130-400 10^3/uL Mean Platelet Volume 9.7 9.0-12.2 fL Immature Granulocyte % (Auto) 0 % Neutrophils (%) (Auto) 64 42-75 % Lymphocytes (%) (Auto) 30 12-44 % Monocytes (%) (Auto) 5 0-12 % Eosinophils (%) (Auto) 2 0-10 % Basophils (%) (Auto) 0 0-10 % Neutrophils # (Auto) 5.2 1.8-7.8 X 10^3 Lymphocytes # (Auto) 2.4 1.0-4.0 X 10^3 Monocytes # (Auto) 0.4 0.0-1.0 X 10^3 Eosinophils # (Auto) 0.1 0.0-0.3 10^3/uL Basophils # (Auto) 0.0 0.0-0.1 10^3/uL Immature Granulocyte # (Auto) 0.0 0.0-0.1 10^3/uL Prothrombin Time 12.9 12.2-14.7 SEC INR Comment 0.9 0.8-1.4 Activated Partial Thromboplast Time 28 24-35 SEC D-Dimer < 0.27 0.00-0.49 UG/ML Sodium Level 142 135-145 MMOL/L Potassium Level 3.9 3.6-5.0 MMOL/L Chloride Level 106 98-107 MMOL/L Carbon Dioxide Level 23 21-32 MMOL/L Anion Gap 13 5-14 MMOL/L Blood Urea Nitrogen 7 7-18 MG/DL Creatinine 0.76 0.60-1.30 MG/DL Estimat Glomerular Filtration Rate > 60 BUN/Creatinine Ratio 9 Glucose Level 108 H 70-105 MG/DL Calcium Level 10.3 H 8.5-10.1 MG/DL Corrected Calcium 8.5-10.1 MG/DL Magnesium Level 2.2 1.6-2.4 MG/DL Total Bilirubin 0.5 0.1-1.0 MG/DL Aspartate Amino Transf (AST/SGOT) 33 5-34 U/L Alanine Aminotransferase (ALT/SGPT) 47 0-55 U/L Alkaline Phosphatase 144 H 40-136 U/L Myoglobin 21.1 10.0-92.0 NG/ML Troponin I < 0.028 < 0.028 <0.028 NG/ML B-Type Natriuretic Peptide < 10.0 <100.0 PG/ML Total Protein 7.9 6.4-8.2 GM/DL Albumin 4.7 H 3.2-4.5 GM/DL Lipase 44 8-78 U/L My Orders Orders - DIPTI MOSLEY Continuous Ekg Monitoring (10/09/20 13:38) Ekg Tracing (10/09/20 13:38) O2 (10/09/20 13:46) Ed Iv/Invasive Line Start (10/09/20 13:46) Morphine Injection (Morphine Injection (10/09/20 13:46) Ondansetron Injection (Zofran Injectio (10/09/20 14:00) Chest Pa/Lat (2 View) (10/09/20 13:46) Ct Cervical Spine Wo (10/09/20 13:46) Shoulder, Left, 3 Views (10/09/20 13:46) Lipase (10/09/20 13:46) Troponin I (10/09/20 15:14) Hydrocodone/Apap 10/325 Tablet (Lortab 1 (10/09/20 15:30) Hydrocodone/Apap 10/325 Tablet (Lortab 1 (10/09/20 15:20) Ketorolac Injection (Toradol Injection) (10/09/20 16:15) Bupivacaine 0.5% Injection (Sensorcaine (10/09/20 16:15) Methylprednisolone Acetate Inj (Depo-Med (10/09/20 16:15) Ondansetron Injection (Zofran Injectio (10/09/20 16:45) Ondansetron Injection (Zofran Injectio (10/09/20 16:31) Medications Given in ED Current Medications Medications Dose Ordered Sig/Clem Route Start Time Stop Time Status Last Admin Dose Admin Acetaminophen/ Hydrocodone Bitart 1 ea ONCE ONCE PO 10/09/20 15:30 10/09/20 15:31 DC 10/09/20 15:29 1 EA Bupivacaine HCl 30 ml ONCE ONCE INJ 10/09/20 16:15 10/09/20 16:16 DC 10/09/20 16:19 30 ML Ketorolac Tromethamine 30 mg ONCE ONCE IVP 10/09/20 16:15 10/09/20 16:16 DC 10/09/20 16:19 30 MG Methylprednisolone Acetate 40 mg ONCE ONCE IM 10/09/20 16:15 10/09/20 16:16 DC 10/09/20 16:18 40 MG Ondansetron HCl 4 mg ONCE ONCE IVP 10/09/20 14:00 10/09/20 14:01 DC 10/09/20 14:04 4 MG Ondansetron HCl 8 mg ONCE ONCE IVP 10/09/20 16:45 10/09/20 16:46 10/09/20 16:40 8 MG Progress Progress Note #1: Time: 13:55 Progress Note Nontraumatic left neck, shoulder and arm pain suspect radiculopathy. Because however she is having some chest pain we will give her an aspirin, morphine and Zofran for her nausea. EKG is benign. We will get a 2 view chest x-ray to better view the ribs. Left shoulder x-ray. CT of the cervical spine. Progress Note #2: Time: 15:04 Progress Note Nausea is gone. Pain is improved. Progress Note #3: Time: 15:26 Progress Note The patient is still writhing in pain. 7 out of 10. Ragona give her hydrocodone 10 get a repeat troponin and if that is still negative then we will give her Toradol and do some lidocaine bupivacaine injection in the shoulder with steroid. Initial ECG Impression Date: Oct 09, 2020 Initial ECG Impression Time: 13:33 Initial ECG Rate: 96 Initial ECG Rhythm: Normal Sinus Initial ECG Intervals: Normal Initial ECG Impression: Normal Initial ECG Comparisson: Unchanged Comment Normal sinus rhythm without clinically relevant ST elevation or depression Diagnostic Imaging Diagonstic Imaging: Xray Plain Films/CT/US/NM/MRI: chest Comments [facility] [place], [place] NAME: SUSHIL ALTMAN [facility] REC#: [id number] PT STATUS: REG ER : 1980 PHYSICIAN: DIPTI MOSLEY MD ADMIT DATE: 10/09/20/ER Draft Date of Exam:10/09/20 CHEST PA/LAT (2 VIEW) INDICATION: Left shoulder pain. PA and lateral views were obtained. FINDINGS: The heart size, mediastinal configuration, and pulmonary vascularity are within normal limits. There is no pleural effusion, pneumothorax, or pneumonia. The osseous structures are unremarkable. IMPRESSION: No acute cardiopulmonary abnormality. Dictated on workstation # [id number] Dict: 10/09/20 1451 Trans: 10/09/201454 [facility] [id number] Interpreted by: ROXANA CLEMENTE MD Electronically signed by: Reviewed: Reviewed by Me Diagonstic Imaging: Xray Plain Films/CT/US/NM/MRI: other (l shoulder) Comments [facility] [place] [place] NAME: SUSHIL ALTMAN [facility] REC#: [id number] PT STATUS: REG ER : 1980 PHYSICIAN: DIPTI MOSLEY MD ADMIT DATE: 10/09/20/ER Draft Date of Exam:10/09/20 SHOULDER, LEFT, 3 VIEWS INDICATION: Shoulder pain. FINDINGS: The alignment of the shoulder is normal. There is no fracture or dislocation. Soft tissues are unremarkable. IMPRESSION: No acute fracture or dislocation. Dictated on workstation # [id number] Dict: 10/09/20 1450 Trans: 10/09/20 145 [facility] [id number] Interpreted by: ROXANA CLEMENTE MD Electronically signed by: Reviewed: Reviewed by Me Diagonstic Imaging: CT Plain Films/CT/US/NM/MRI: c-spine Comments NAME: SUSHIL ALTMAN [facility] REC#: [id number] PT STATUS: REG ER : 1980 PHYSICIAN: DIPTI MOSLEY MD ADMIT DATE: 10/09/20/ER Draft Date of Exam:10/09/20 CT CERVICAL SPINE WO EXAMINATION: CT cervical spine without contrast. TECHNIQUE: Multiple contiguous axial images were obtained through the cervical spine without the use of intravenous contrast. Sagittal and coronal reformations through the cervical spine were then performed. All CT scans use one or more of the following dose optimizing techniques: automated exposure control, MA and/or KvP adjustment based on patient size and exam type or iterative reconstruction. HISTORY: Cervical radiculopathy. COMPARISON: None available. FINDINGS: The alignment of the cervical spine is normal. No fracture is seen. Vertebral body heights are normal. The craniocervical junction is normal. There is no degenerative disease in the cervical spine. Facet and uncovertebral joints appear normal. Discs are normal. No neural foraminal stenosis is seen. There is no spinal canal stenosis. No soft tissue abnormality is seen in the neck. Limited views of the superior thorax are normal. IMPRESSION: No cervical spine fracture. No significant degenerative disease seen in the cervical spine. MRI may be required for further evaluation if the patient has persistent symptoms of radiculopathy. Dictated on workstation # [id number] Dict: 10/09/20 1456 Trans: 10/09/20 1502 [facility] [id number] Interpreted by: CAROLINE GAITAN MD Electronically signed by: Reviewed: Reviewed by Me Departure Impression Primary Impression: Cervical radiculopathy, acute Disposition: 01 HOME, SELF-CARE Condition: Stable Departure-Patient Inst. Decision time for Depature: 16:20 Referrals: [facility] (PCP/Family) Primary Care Physician Patient Instructions: Radiculopathy (DC) Add. Discharge Instructions: I suspect strongly that you have a nerve being pinched in your neck but it was not visible on the CT. You and your primary care doctor should continue to work this up next week and consider follow-up with physical therapy, massage, heating pads, topical creams such as icy hot or Biofreeze. Tylenol 650 mg every 8 hours as necessary for pain. Hydrocodone 1 tablet every 6 hours as necessary for severe breakthrough pain. Naproxen 1 tablet 500 mg twice a day on a scheduled for the next 2 weeks. You may use the muscle relaxants if they are helpful. The shot with steroids in your shoulder should start taking it over the next 24 hours and lasts about 5 to 7 days and should decrease the inflammation in your neck. Ondansetron/Zofran 1 tablet every 6 hours under the tongue as necessary for nausea and/or vomiting. Tomorrow, call [facility] physical therapy at [phone] and request a no upfront cost evaluation for therapy. All discharge instructions reviewed with patient and/or family. Voiced understanding. Scripts Ondansetron (Ondansetron Odt) 4 Mg Tab.rapdis 4 MG PO Q6H PRN for NAUSEA/VOMITING, #10 TAB 0 Refills Prov: DIPTI MOSLEY 10/09/20 Naproxen (Naprosyn) 500 Mg Tablet 500 MG PO BID for 14 Days, #30 TAB 0 Refills Prov: DIPTI MOSLEY 10/09/20 Hydrocodone/Acetaminophen (Hydrocodone-Acetamin 7.5-325) 1 Each Tablet 1 EACH PO Q6H PRN for PAIN-BREAKTHROUGH, #12 TAB 0 Refills Prov: DIPTI MOSLEY 10/09/20 Work/School Note: Work Release Form Date Seen in the Emergency Department: Oct 09, 2020 Return to Work: Oct 10, 2020 Restrictions: Need Release from Doctor Other Restrictions Listed Below: Minimize use of left shoulder until 10/24/2020. Restrictions: Do not lift, push or pull greater than 20 pounds until 10/24/2020. DIPTI MOSLEY Oct 09, 2020 13:55
[2020-10-09 13:57] LABS: BASOPHILS % (AUTO) 0 % (0-10); EOSINOPHILS # (AUTO) 0.1 10^3/uL (0.0-0.3); EOSINOPHILS % (AUTO) 2 % (0-10); HEMATOCRIT 42 % (35-52); HEMOGLOBIN 14.2 g/dL (11.5-16.0); LYMPHOCYTES # (AUTO) 2.4 X 10^3 (1.0-4.0); LYMPHOCYTES % (AUTO) 30 % (12-44); MEAN CORPUSCULAR HEMOGLOBIN 30 pg (25-34); MEAN CORPUSCULAR HGB CONC 34 g/dL (32-36); MEAN CORPUSCULAR VOLUME 88 fL (80-99); MEAN PLATELET VOLUME 9.7 fL (9.0-12.2); MONOCYTES # (AUTO) 0.4 X 10^3 (0.0-1.0); MONOCYTES % (AUTO) 5 % (0-12); NEUTROPHILS # (AUTO) 5.2 X 10^3 (1.8-7.8); NEUTROPHILS % (AUTO) 64 % (42-75); PLATELET COUNT 319 10^3/uL (130-400); WHITE BLOOD COUNT 8.1 10^3/uL (4.3-11.0)
[2020-10-09] MEDS ORDERED: ONDANSETRON 4 MG/2 ML (SDV) Z0FRAN IVP ONE ×2 (14:00→16:45)
[2020-10-09 14:04] LABS: INR 0.9 (0.8-1.4); PROTHROMBIN TIME PATIENT 12.9 SEC (12.2-14.7)
[2020-10-09 14:10] LABS: LIPASE 44 U/L (8-78)
[2020-10-09 14:13] LABS: ALANINE AMINOTRANSFERASE 47 U/L (0-55); ALBUMIN 4.7 GM/DL (3.2-4.5); ALKALINE PHOSPHATASE 144 U/L (40-136); BILIRUBIN,TOTAL 0.5 MG/DL (0.1-1.0); BUN/CREATININE RATIO 9; CALCIUM 10.3 MG/DL (8.5-10.1); CARBON DIOXIDE 23 MMOL/L (21-32); CHLORIDE 106 MMOL/L (98-107); CREATININE SERUM 0.76 MG/DL (0.60-1.30); GFR ESTIMATED > 60; GLUCOSE 108 MG/DL (70-105); MAGNESIUM 2.2 MG/DL (1.6-2.4); POTASSIUM 3.9 MMOL/L (3.6-5.0); SODIUM 142 MMOL/L (135-145); TOTAL PROTEIN 7.9 GM/DL (6.4-8.2)
--- NOTE | 2020-10-09 14:55 | Diagnostic Imaging Report ---
INDICATION: Left shoulder pain. PA and lateral views were obtained. FINDINGS: The heart size, mediastinal configuration, and pulmonary vascularity are within normal limits. There is no pleural effusion, pneumothorax, or pneumonia. The osseous structures are unremarkable. IMPRESSION: No acute cardiopulmonary abnormality. Dictated by: Dictated on workstation # [id number]
--- NOTE | 2020-10-09 14:56 | Diagnostic Imaging Report ---
INDICATION: Shoulder pain. FINDINGS: The alignment of the shoulder is normal. There is no fracture or dislocation. Soft tissues are unremarkable. IMPRESSION: No acute fracture or dislocation. Dictated by: Dictated on workstation # [id number]
--- NOTE | 2020-10-09 15:03 | Diagnostic Imaging Report ---
EXAMINATION: CT cervical spine without contrast. TECHNIQUE: Multiple contiguous axial images were obtained through the cervical spine without the use of intravenous contrast. Sagittal and coronal reformations through the cervical spine were then performed. All CT scans use one or more of the following dose optimizing techniques: automated exposure control, MA and/or KvP adjustment based on patient size and exam type or iterative reconstruction. HISTORY: Cervical radiculopathy. COMPARISON: None available. FINDINGS: The alignment of the cervical spine is normal. No fracture is seen. Vertebral body heights are normal. The craniocervical junction is normal. There is no degenerative disease in the cervical spine. Facet and uncovertebral joints appear normal. Discs are normal. No neural foraminal stenosis is seen. There is no spinal canal stenosis. No soft tissue abnormality is seen in the neck. Limited views of the superior thorax are normal. IMPRESSION: No cervical spine fracture. No significant degenerative disease seen in the cervical spine. MRI may be required for further evaluation if the patient has persistent symptoms of radiculopathy. Dictated by: Dictated on workstation # [id number]
[2020-10-09] MEDS ORDERED: BUPIVACAINE 0.5% 30 ML (SENSORCAINE) VIAL INJ ONE (16:15)
[2020-10-09] MEDS ORDERED: KETOROLAC 30 MG/ML VIAL IVP ONE (16:15)
[2020-10-09] MEDS ORDERED: methylPREDNISolone 40 MG/ML (DEPO MEDROL) VIAL IM ONE (16:15)
[2020-10-09] MEDS ORDERED: ONDANSETRON 4 MG/2 ML (SDV) Z0FRAN ONE (16:31)
[2020-10-09] MEDS ORDERED: ONDA4TAB11 PO (16:40)
[2020-10-09] MEDS ORDERED: HYDR-3817 PO (16:40)
[2020-10-09] MEDS ORDERED: NAPR-1071 PO (16:40)
[2020-10-09 17:00] VITALS: BP 110/72
== END 2020-10-09 17:00 | disposition home or self-care (01) ==
LOC: EDUNIT# 13:23 → ER 13:25
DX: M54.12 Radiculopathy, cervical region (principal); E78.00 Pure hypercholesterolemia, unspecified; F31.9 Bipolar disorder, unspecified; F41.9 Anxiety disorder, unspecified; G43.909 Migraine, unspecified, not intractable, without status migrainosus; Z77.22 Contact with and (suspected) exposure to environmental tobacco smoke (acute) (chronic); Z91.5 Personal history of self-harm; Z79.52 Long term (current) use of systemic steroids
CPT/HCPCS: 36415; 71046; 72125; 73030; 80053; 83690; 83735; 83874; 83880; 84484; 85025; 85379; 85610; 85730; 93005; 93041

== ENCOUNTER 2020-11-25 14:23 | Outpatient (RCR) | payer OTHER ==
[~2020-11-25 14:23] MED LIST changes: -ACYC400T PO; +ACYC400T21 PO; +HYDR-3817 PO; +NAPR-1071 PO
== END 2020-12-27 10:33 | disposition home or self-care (01) ==
PROVIDERS: ATTEND Physical Therapist
DX: M54.2 Cervicalgia (principal)

== ENCOUNTER → 2020-12-15 | Outpatient (CLI) | payer OTHER ==
--- NOTE | 2020-12-15 16:45 | Diagnostic Imaging Report ---
INDICATION: Screening. At this time there is no current complaint. EXAMINATION: Bilateral digital screening mammogram with CAD. 3D tomographic images were obtained and reviewed. The current study was also evaluated with a Computer Aided Detection (CAD) system. COMPARISON: None. This is the patient's baseline study. FINDINGS: There are scattered fibroglandular densities in both breasts which could obscure a lesion. There are small benign-appearing nodular asymmetries, bilaterally. There is no primary or secondary sign of malignancy identified. IMPRESSION: 1. There is no evidence for malignancy. 2. The patient should have her annual bilateral screening mammogram on schedule in December of 2021. ACR BI-RADS Category 1: Negative. Result letter will be mailed to the patient. Note: At least 10% of breast cancer is not imaged by mammography. Dictated by: Dictated on workstation # [id number]
== END ==
LOC: RAD 15:00
PROVIDERS: ATTEND Nurse Practitioner Family
DX: Z12.31 Encounter for screening mammogram for malignant neoplasm of breast (principal)
CPT/HCPCS: 77063; 77067

== ENCOUNTER 2021-01-17 13:33 | Outpatient (RCR) | payer OTHER | END 2021-03-21 08:58 | disposition home or self-care (01) | PROVIDERS: ATTEND Physical Therapist | DX: M54.2 Cervicalgia (principal); F32.9 Major depressive disorder, single episode, unspecified; M81.0 Age-related osteoporosis without current pathological fracture ==

== ENCOUNTER → 2021-11-15 | Outpatient (CLI) | payer OTHER ==
[~2021-11-15] MED LIST changes: +CYCL10TA25 PO; -CYCL10TA9 PO; +ONDA-106 PO; -ONDA8TAB15 PO; -VENL150C PO; +VENL150C3 PO
--- NOTE | 2021-11-15 15:59 | Diagnostic Imaging Report ---
INDICATION: Pain, fall. COMPARISON: Imaging from the same date. TECHNIQUE: Two radiographs of the left forearm dated 11/15/2021. FINDINGS: No acute fracture or dislocation. No destructive osseous process. No suspicious radiopaque foreign body. IMPRESSION: No acute osseous abnormality. Dictated by: Dictated on workstation # [id number]
--- NOTE | 2021-11-15 15:59 | Diagnostic Imaging Report ---
INDICATION: Fall, pain. COMPARISON: Radiographs from the same date. TECHNIQUE: Three radiographs of the left elbow dated November 15, 2021. FINDINGS: No acute fracture or dislocation. No destructive osseous process. Joint spaces are well maintained. No elbow joint effusion. No suspicious radiopaque foreign body. IMPRESSION: No acute osseous abnormality. Dictated by: Dictated on workstation # [id number]
== END ==
LOC: RAD 15:14
PROVIDERS: ATTEND Nurse Practitioner Family
DX: M79.632 Pain in left forearm (principal); M25.522 Pain in left elbow; W19.XXXA Unspecified fall, initial encounter
CPT/HCPCS: 73080; 73090

== ENCOUNTER → 2021-11-24 | Outpatient (CLI) | payer OTHER ==
--- NOTE | 2021-11-24 14:14 | Diagnostic Imaging Report ---
Exam: MRI left humerus without contrast. Date: November 24, 2021. Indication: 41-year-old female, fall. Left humerus pain. Comparison: None. Technique: Multiple dedicated noncontrast MRI sequences of the left humerus were obtained. Findings: There is a nondisplaced acute left greater trochanteric fracture with associated marrow edema. There is no additional identified fracture in the included field of view. The proximal humerus is not entirely included in the [id number] on all sequences. There is very limited glenohumeral joint assessment given the large ycbfq-mk-fudl of acquisition. This study is nondiagnostic for evaluation of the rotator cuff. There is no identified sizable fluid collection or hematoma. Impression: 1. Acute nondisplaced fracture of the left greater tuberosity. Dictated by: Dictated on workstation # [id number]
== END ==
LOC: RAD 12:30
PROVIDERS: ATTEND Nurse Practitioner Family
DX: S42.252A Displaced fracture of greater tuberosity of left humerus, initial encounter for closed fracture (principal); W19.XXXA Unspecified fall, initial encounter
CPT/HCPCS: 73218

== ENCOUNTER 2023-05-09 22:41 | Emergency (ER) | payer SELFPAY ==
[~2023-05-09] VITALS: Ht 152.4 cm; Wt 82.7 kg
[2023-05-09 23:48] VITALS: BP 133/103
--- NOTE | 2023-05-10 00:16 | ED Back Pain ---
General Chief Complaint: Back Problems Stated Complaint: LEFT SIDE LOWER BACK PAIN Nursing Triage Note: PATIENT AMBULATORY TO ROOM 6 WITH C/O OF BACK PAIN. STATES TOOK HYDROCODONE AROUND 1700. 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 NIXON Allergies and Home Medications Allergies Uncoded Allergies: SEAFOOD (Allergy, Mild, 10/23/09) Patient Home Medication List Home Medication List Reviewed: Yes Acyclovir (Acyclovir) 400 Mg Tablet, 400 MG PO 5XD Prescribed by: RUT PINEDA on 02/10/20 1212 Alprazolam (Alprazolam) 1 Mg Tablet, 1 MG PO QID PRN for ANXIETY, (Reported) Entered as Reported by: JESUS DE LA FUENTE on 09/22/14 08 Ascorbic Acid (Vitamin C 500 Mg) 500 Mg Tablet, 500 MG PO DAILY, (Reported) Entered as Reported by: JESUS DE LA FUENTE on 09/22/1418 Atorvastatin Calcium (Atorvastatin Calcium) 20 Mg Tablet, 20 MG PO DAILY, (Reported) Entered as Reported by: JESUS DE LA FUENTE on 09/22/14 08 Cyclobenzaprine HCl (Cyclobenzaprine HCl) 10 Mg Tablet, 10 MG PO Q8H PRN for SPASMS Prescribed by: YOLANDA COELHO on 01/18/19 2325 Cyclobenzaprine HCl (Cyclobenzaprine HCl) 10 Mg Tablet, 10 MG PO Q8H PRN for SPASMS Prescribed by: JCARLOS FORRESTER on 05/10/23 0329 Estradiol (Estrace) 2 Mg Tablet, 1 MG PO DAILY, (Reported) Entered as Reported by: JESUS DE LA FUENTE on 09/22/14 0813 Hydrocodone Bit/Acetaminophen (Hydrocodone-Apap 7.5-325 Tb) 1 Tab Tablet, 1 TAB PO QID PRN for PAIN, (Reported) Entered as Reported by: JESUS DE LA FUENTE on 09/22/14 0814 Hydrocodone Bit/Acetaminophen (Lortab 7.5 Mg Tablet) 1 Ea Tablet, 1 EACH PO Q6H Prescribed by: YOLANDA COELHO on 01/18/19 2325 Hydrocodone/Acetaminophen (Hydrocodone-Acetamin 7.5-325) 1 Each Tablet, 1 EACH PO Q6H PRN for PAIN-BREAKTHROUGH Prescribed by: DIPTI MOSLEY on 10/09/20 1640 Ketorolac Tromethamine (Ketorolac Tromethamine) 10 Mg Tablet, 10 MG PO Q6H Prescribed by: JCARLOS FORRESTER on 11/11/15 0244 Loratadine (Loratadine) 10 Mg Tablet, 10 MG PO DAILY, (Reported) Entered as Reported by: JESUS DE LA FUENTE on 09/22/14 08 Metoclopramide HCl (Metoclopramide HCl) 5 Mg Tablet, 5 MG PO QID PRN for NAUSEA/VOMITING Prescribed by: KEITH CORNEJO on 02/23/15 1455 Multivitamin (Multi Vitamin Daily) 1 Each Tablet, 1 TAB PO DAILY, (Reported) Entered as Reported by: JESUS DE LA FUENTE on 09/22/14 0818 Naproxen (Naprosyn) 500 Mg Tablet, 500 MG PO BID Prescribed by: DIPTI MOSLEY on 10/09/20 1640 Naproxen (Naproxen) 500 Mg Tablet.dr, 500 MG PO BID Prescribed by: JCARLOS FORRESTER on 05/10/23 0329 Omeprazole (Omeprazole) 20 Mg Capsule.dr, 20 MG PO BID, (Reported) Entered as Reported by: NICHOLAS SUAREZ on 02/15/15 1417 Ondansetron (Ondansetron Odt) 4 Mg Tab.rapdis, 4 MG PO Q6H PRN for NAUSEA/VOMITING Prescribed by: DIPTI MOSLEY on 10/09/20 1640 Ondansetron HCl (Ondansetron HCl) 8 Mg Tablet, 8 MG PO QID PRN for NAUSEA, (Reported) Entered as Reported by: ZHANG TO on 03/03/15 1034 Pantoprazole Sodium (Protonix) 40 Mg Tablet.dr, 40 MG PO DAILY Prescribed by: CLARENCE LOPEZ on 03/09/15 1007 Prednisone (Prednisone) 20 Mg Tab, 20 MG PO DAILY Prescribed by: RUT PINEDA on 02/10/20 1212 Ranitidine HCl (Zantac) 300 Mg Tablet, 300 MG PO HS, (Reported) Entered as Reported by: ZHANG TO on 03/03/15 1034 Sucralfate (Carafate) 1 Gm Tablet, 1 GM PO QID Prescribed by: CLARENCE LOPEZ on 03/09/15 1007 Tramadol HCl (Tramadol HCl) 50 Mg Tablet, 50 MG PO Q4H Prescribed by: JCARLOS FORRESTER on 05/10/23 0330 Venlafaxine HCl (Effexor Xr) 150 Mg Cap.er.24h, 150 MG PO DAILY, (Reported) Entered as Reported by: NICHOLAS SUAREZ on 02/15/15 1354 Ziprasidone (Geodon) 80 Mg Cap, 80 MG PO, (Reported) Entered as Reported by: LADI GARCÍA on 11/11/15 0040 Review of Systems Constitutional: no symptoms reported Respiratory: no symptoms reported Cardiovascular: no symptoms reported Gastrointestinal: no symptoms reported Genitourinary: no symptoms reported Control/STD Prophylaxis: Other (S/P HYST/BSO) Musculoskeletal: see HPI, back pain Skin: no symptoms reported Psychiatric/Neurological: No Symptoms Reported Past Yhgvjfe-Lavegi-Paemsq Hx Patient Social History Tobacco Use?: Yes Smoking Status: Current Everyday Smoker Use of E-Cig and/or Vaping dev: Yes E-Cig or Vaping type used: Nicotine, Marijuana Use of E-Cig and/or Vaping Dirk: Current Everyday User Substance use?: Yes Substance type: Marijuana Substance frequency: Daily Alcohol Use?: Yes Alcohol Frequency: Rarely Immunizations Up To Date Influenza Vaccine Up-to-Date: Yes; Up-to-Date First/Initial COVID19 Vaccinat: 2019 COVID19 Vaccine 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: [employer] Past Medical History Surgeries: Yes (LAPAROSCOPY X 8 FOR ENDOMETRIOSIS; HYST/BSO;WISDOM TEETH) Abdominal, Appendectomy, Gallbladder, Hysterectomy, Oophorectomy Respiratory: No Cardiac: Yes High Cholesterol Neurological: Yes Headaches /Migraines Last Menstrual Period: May 23, 2000 Reproductive Disorders: Yes Female Reproductive Disorders: Endometriosis 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 Gastrointestinal: No Hiatal Hernia Musculoskeletal: No Endocrine: No HEENT: No Cancer: No Psychosocial: Yes ("SEVERE ANXIETY" PER PT) Anxiety, Suicide Attempts, Bipolar, Depression Integumentary: No Blood Disorders: No Family Medical History Cancer, Diabetes SOCIAL HISTORY: -SMOKES 1 PPD, VAPES NICOTINE AND THC -ETOH--RARE USE -DRUGS--THC PAST SURGICAL HISTORY: -MULTIPLE LAPAROSCOPIES FOR ENDOMETRIOSIS -HYSTERECTOMY/BILATERAL SALPINGO-OOPHORECTOMY -CHOLECYSTECTOMY -APPENDECTOMY -WISDOM TEETH Physical Exam Vital Signs Vital Signs - First Documented 05/09/23 23:48 Temp 36.1 Pulse 75 Resp 15 B/P (MAP) 133/103 (113) Pulse Ox 99 O2 Delivery Room Air Capillary Refill : Less Than 3 Seconds Height, Weight, BMI Height: 5'1.00" Weight: 190lbs. 3.0oz. 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 as Tested, Other (ANXIOUS, TALKS NON-STOP AT LENGTH) Skin: Normal Color, Warm/Dry; No Rash; Tattoos/Piercings (TATTOOS) Progress/Results/Core Measures Results/Orders Lab Results Laboratory Tests Test 05/10/23 00:00 Range/Units Urine Color YELLOW Urine Clarity CLEAR Urine pH 5.5 5-9 Urine Specific Martin >=1.030 1.016-1.022 Urine Protein NEGATIVE NEGATIVE Urine Glucose (UA) NEGATIVE NEGATIVE Urine Ketones NEGATIVE NEGATIVE Urine Nitrite NEGATIVE NEGATIVE Urine Bilirubin NEGATIVE NEGATIVE Urine Urobilinogen 0.2 < = 1.0 MG/DL Urine Leukocyte Esterase TRACE H NEGATIVE Urine RBC (Auto) TRACE H NEGATIVE Urine RBC NONE /HPF Urine WBC 0-2 /HPF Urine Squamous Epithelial Cells 2-5 /HPF Urine Crystals NONE /LPF Urine Bacteria TRACE /HPF Urine Casts NONE /LPF Urine Mucus SMALL H /LPF Urine Culture Indicated NO My Orders Orders - JCARLOS FORRESTER DO Ua Culture If Indicated (05/09/23 23:37) Ct Abd/Pelvis Wo(Kidney Stone) (05/10/23 00:53) Rx-Cyclobenzaprine Tablet (Rx-Flexeril T (05/10/23 03:26) Rx-Naproxen (Rx-Naprosyn) (05/10/23 03:26) Rx-Tramadol Hcl (Rx-Ultram) (05/10/23 03:26) Vital Signs/I&O 05/09/23 23:48 Temp 36.1 Pulse 75 Resp 15 B/P (MAP) 133/103 (113) Pulse Ox 99 O2 Delivery Room Air Blood Pressure Mean: 113 Progress Progress Note : Progress Note VITALS STABLE, AFEBRILE UA UNREMARKABLE CT SCAN UNREMARKABLE UNEVENTFUL ER STAY PT WALKS UPRIGHT AND MOVES QUICKLY AT DISMISSAL. DISCUSSED TEST RESULTS, ANTICIPATED COURSE, SYMPTOMATIC TREATMENT, MEDICATIONS, NEED FOR FOLLOW UP AND RETURN PRECAUTIONS REVIEWED PRIOR RECORDS, INCLUDING ER VISITS, ADMITS/H&P'S/CONSULTS/DISCHARGE SUMMARIES, TESTS/PROCEDURES Diagnostic Imaging Comments CT ABDOMEN/PELVIS--NO ACUTE FINDINGS, PER [facility] VIA FAX AT [id number] Reviewed: Reviewed by Me Departure Impression Primary Impression: Left flank pain Disposition: 01 HOME, SELF-CARE Condition: Stable Departure-Patient Inst. Decision time for Depature: 03:28 Referrals: INES NIXON MD (PCP/Family) Primary Care Physician Patient Instructions: Flank Pain ED Add. Discharge Instructions: MOIST HEAT TO SORE AREA AT 20 MINUTE INTERVALS NO LIFTING OVER 10 LBS, NO TWISTING OR BENDING AT WAIST FOR THE NEXT WEEK FOLLOW UP WITH YOUR DR IN 2-3 DAYS IF NO BETTER, RETURN TO ER IF WORSE All discharge instructions reviewed with patient and/or family. Voiced understanding. Scripts Tramadol HCl (Tramadol HCl) 50 Mg Tablet 50 MG PO Q4H for Pain, #20 TAB Prov: JCARLOS FORRESTER DO 05/10/23 Naproxen (Naproxen) 500 Mg Tablet.dr 500 MG PO BID, #20 TAB Prov: JCARLOS FORRESTER DO 05/10/23 Cyclobenzaprine HCl (Cyclobenzaprine HCl) 10 Mg Tablet 10 MG PO Q8H PRN for SPASMS, #15 TAB 0 Refills Prov: JCARLOS FORRESTER DO 05/10/23 Work/School Note: Work Release Form Date Seen in the Emergency Department: May 10, 2023 Return to Work: May 11, 2023 Other Restrictions Listed Below: NO LIFTING OVER 10 LBS, NO TWISTING OR BENDING AT WAIST X 1 WEEK JCARLOS FORRESTER DO May 10, 2023 00:16
[2023-05-10 00:36] LABS: CLARITY,URINE CLEAR; COLOR,URINE YELLOW
[2023-05-10 00:37] LABS: GLUCOSE, URINE (UA) NEGATIVE (NEGATIVE); PROTEIN,URINE NEGATIVE (NEGATIVE)
[2023-05-10 00:46] LABS: BACTERIA,URINE TRACE /HPF; BILIRUBIN,URINE NEGATIVE (NEGATIVE); KETONES,URINE NEGATIVE (NEGATIVE); LEUKOCYTE ESTERASE ,URINE TRACE (NEGATIVE); NITRITE,URINE NEGATIVE (NEGATIVE); PH,URINE 5.5 (5-9); WBC,URINE 0-2 /HPF
[2023-05-10] MEDS ORDERED: RX-CYCLOBENZAPRINE 10 MG (FLEXERIL) TAB PPK#3 PO STA (03:26)
[2023-05-10] MEDS ORDERED: RX-NAPROXEN (NAPROSYN) 250 MG TAB PPK#4 PO STA (03:26)
[2023-05-10] MEDS ORDERED: NAPR500T8 PO (03:29)
[2023-05-10] MEDS ORDERED: CYCL10TA25 PO (03:29)
[2023-05-10] MEDS ORDERED: TRAM50TA3 PO (03:29)
--- NOTE | 2023-05-10 07:22 | Diagnostic Imaging Report ---
PROCEDURE: CT urinary tract, rule out kidney stone. TECHNIQUE: Multiple contiguous axial images were obtained through the abdomen and pelvis without the use of intravenous contrast. Auto Exposure Controls were utilized during the CT exam to meet ALARA standards for radiation dose reduction. INDICATION: 42-year-old female presents with low back pain for 24 hours. COMPARISONS: 02/15/2015 FINDINGS: Lung bases are clear. Cardiac contour is normal. Liver shows uniform attenuation. Gallbladder is surgically absent. Spleen and GE junction are normal. Stomach and duodenal sweep are unremarkable. Pancreas shows sharp margins. Adrenals are normal. Kidneys appear normal in size, position and contour. There is no hydronephrosis or hydroureter. Both ureters are seen intermittently through their course and appear unremarkable. Nonopacified loops of small bowel are normal. Appendix is surgically absent. Large bowel contains fecal material and gas with a moderate amount of fecal load up to the splenic flexure. There are a few scattered diverticula seen but no diverticulosis or acute diverticulitis. There is no free air, free fluid or adenopathy. There is normal caliber of aorta, iliac and femoral arteries with normal origin of the source. Bone windows show no overall gross abnormalities. There are some degenerative changes of the thoracolumbar level. IMPRESSION: 1. Surgical absence of the gallbladder. 2. No evidence of obstructive uropathy. 3. Surgical absence of the appendix. No areas of peritoneal inflammation seen. Additional nonemergent findings as described above. Dictated by: Dictated on workstation # [id number]
== END 2023-05-10 03:41 | disposition home or self-care (01) ==
LOC: EDUNIT# 22:41 → ER 22:44
DX: R10.9 Unspecified abdominal pain (principal); M54.50 Low back pain, unspecified; G89.29 Other chronic pain; R51.9 Headache, unspecified; F17.290 Nicotine dependence, other tobacco product, uncomplicated; F17.210 Nicotine dependence, cigarettes, uncomplicated; E66.9 Obesity, unspecified; Z68.35 Body mass index [BMI] 35.0-35.9, adult; Z90.49 Acquired absence of other specified parts of digestive tract; Z87.19 Personal history of other diseases of the digestive system
CPT/HCPCS: 74176; 81000; 99282